=== PATIENT | male | born 1950 | race Caucasian/White ===

== ENCOUNTER 2020-07-05 11:32 | Inpatient (IN) | payer MEDICARE, OTHER ==
[2020-07-05] MEDS ORDERED: SODIUM CHLORIDE 0.9% 1,000 ML IV STA (12:20)
[2020-07-05] MEDS ORDERED: ONDANSETRON 4 MG/2 ML VIAL IVP STA (12:23)
[2020-07-05] MEDS ORDERED: ASPIRIN 81 MG PO STA (12:54)
--- NOTE | 2020-07-05 12:57 | ED ---
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 Patient history is significantly limited secondary to patient's developmental delays. Majority of history was obtained from patient's asp net programmer Nathaly who states that since July 03 patient has had complaints of dull pain and vomiting. They sent him to [facility] where the rule out obstruction Was negative and patient was kept overnight for monitoring. He was discharged 07/04 and nathaly states he was acting more like himself, until this morning patient was grabbing right upper abdomen stating it was hurting, no vomiting but just would not eat which is not like himself. Remaining ROS (-), they deny diarrhea, fever, bloody stools, blood in vomit. Denyes patient appearing short of breath or in distress. patient himself nods "no" to chest pain, shortness of breath, nods yest to abdominal pain, grabbing right side of abdomen Meds: amlodipine 2.5mg furosemide 40mg (Estefanía Hernandes) - Related Data Home Medications Medication Instructions Recorded Confirmed ARIPiprazole [Abilify] 20 mg PO DAILY 01/09/16 01/09/16 Benztropine Mesylate [Cogentin] 1 mg PO DAILY 01/09/16 01/09/16 Cholecalciferol [Vitamin D3] 2,000 unit PO DAILY 01/09/16 01/09/16 DULoxetine HCL [Cymbalta] 60 mg PO DAILY 01/09/16 01/09/16 Divalproex ER [Depakote ER] 250 mg PO BID 01/09/16 01/09/16 Divalproex [Depakote] 500 mg PO QID 01/09/16 01/09/16 Famotidine [Pepcid] 20 mg PO DAILY 01/09/16 01/09/16 Furosemide [Lasix] 40 mg PO BID 01/09/16 01/09/16 LORazepam [Ativan] 0.5 mg PO HS PRN 01/09/16 01/09/16 LORazepam [Ativan] 1 mg PO DIRECTED PRN 01/09/16 01/09/16 Levothyroxine Sodium [Synthroid] 75 mcg PO DAILY 01/09/16 01/09/16 Loperamide [Imodium] 2 mg PO BID 01/09/16 01/09/16 Magnesium Gluconate [Magonate] 500 mg PO TID 01/09/16 01/09/16 Potassium Chloride [Klor-Con 20] 20 meq PO DAILY 01/09/16 01/09/16 Psyllium Husk 100% [Metamucil] 12 gm PO TID 01/09/16 01/09/16 Simvastatin [Zocor] 20 mg PO HS 01/09/16 01/09/16 Spironolactone [Aldactone] 25 mg PO DAILY 01/09/16 01/09/16 Sucralfate [Carafate] 1 gm PO ACHS 01/09/16 01/09/16 allopurinoL [Zyloprim] 200 mg PO TID 01/09/16 01/09/16 calcitrioL [Rocaltrol] 0.25 mcg PO WEEKLY 01/09/16 01/09/16 Allergies Allergy/AdvReac Type Severity Reaction Status Date / Time lamotrigine Allergy Unknown Verified 01/09/16 08:10 Penicillins Allergy Rash/Hives Verified 01/09/16 08:10 Review of Systems ROS Other: All systems not noted in ROS Statement are negative. <Jan Rebolledo - Last Filed: 07/05/20 13:04> ROS Other: All systems not noted in ROS Statement are negative. <Estefanía Hernandes - Last Filed: 07/05/20 13:09> ROS Statement: Those systems with pertinent positive or pertinent negative responses have been documented in the HPI. Past Medical History Past Medical History: Coronary Artery Disease (CAD), Dementia, GERD/Reflux, Hypertension, Neurologic Disorder, Prostate Disorder, Renal Disease, Thyroid Disorder Additional Past Medical History / Comment(s): prostate cancer, epilepsy, chf, cerebral palsy History of Any Multi-Drug Resistant Organisms: None Reported Additional Past Surgical History / Comment(s): ileostomy Past Anesthesia/Blood Transfusion Reactions: No Reported Reaction Smoking Status: Never smoker Past Alcohol Use History: None Reported Past Drug Use History: None Reported <GretaEstefanía Parekh - Last Filed: 07/05/20 13:09> General Exam Limitations: no limitations <Estefanía Hernandes - Last Filed: 07/05/20 13:09> - General Exam Comments Initial Comments: General: The patient is awake and alert, in no distress Eye: Pupils are equal, round and reactive to light, extra-ocular movements are intact. No nystagmus. There is normal conjunctiva bilaterally. No signs of icterus. Ears, nose, mouth and throat: There are moist mucous membranes and no oral lesions. Neck: The neck is supple, there is no tenderness or JVD. Cardiovascular: There is a regular rate and rhythm. No murmur, rub or gallop is appreciated. Respiratory: Lungs are clear to auscultation, respirations are non-labored, breath sounds are equal. No wheezes, stridor, rales, or rhonchi. Gastrointestinal: Soft, non-distended, no obvious tenderness to palpation on abdominal exam, abdomen is without masses or organomegaly noted. There is no rebound or guarding present. Musculoskeletal: Normal ROM, no tenderness. Strength 5/5. Sensation intact. Radial and DP pulses equal bilaterally 2+. Neurological: A&O x 1. CN II-XII intact grossly, There are no obvious motor or sensory deficits. Coordination appears grossly intact. wont speak very much, occasional one words, nods Skin: Skin is warm and dry and no rashes or lesions are noted. Psychiatric: flat affect, obvious delays (Estefanía Hernandes) Course <Estefanía Hernandes - Last Filed: 07/05/20 13:09> Vital Signs 07/05/20 11:38 Temperature 97.6 F Pulse Rate 105 H Respiratory 18 Rate Blood Pressure 138/89 O2 Sat by Pulse 98 Oximetry - Reevaluation(s) Reevaluation #1: Nathaly supervisor [employer] and public guardian fernanda were updated on patient condition and fernanda gave permission for cardiac catheterization. 07/05/20 13:06 (Estefanía Hernandes) Medical Decision Making <Jan Rebolledo - Last Filed: 07/05/20 13:04> <Estefanía Hernandes - Last Filed: 07/05/20 13:09> - Medical Decision Making EKG shows a normal sinus rhythm at 99 bpm IN interval 142 QRS is 86 QT interval 342 QTC is [address] segment elevation in inferior leads II, III, and F aVF. Immediately I called a STEMI overhead Dr. Whitman she came down quickly to see the patient. Patient received a bolus of heparin and aspirin in the emergency department. Patient is unable to give any accurate history. I, Priyank Rebolledo, personally saw and examined the patient. I have reviewed and agree with the PA findings, including all diagnostic interpretations and huang atment plans as written unless otherwise stated. I was present for the kent portions of any procedures performed and the inclusive time noted for any critical care statement. (Jan Rebolledo) Given patient's lmited history and presentation and pointing to the right side abdomen it did not appear initially to be cardiac related, nodded no to chest pain and nathaly stated that he is usually good at telling them where he is hurting. patient EKG obtained later in visit, revealed a STEMI. I immediately showed attending provider, cardiology paged and patient given aspirin and initiated on heparin bolus. Cardiology evaluated patient in ER at 1PM. (Estefanía Hernandes) Disposition <Jan Rebolledo - Last Filed: 07/05/20 13:04> Is patient prescribed a controlled substance at d/c from ED?: No Time of Disposition: 13:08 Decision to Admit Reason: Admit from EC Decision Date: 07/05/20 Decision Time: 13:09 <Estefanía Hernandes - Last Filed: 07/05/20 13:09> Clinical Impression: STEMI (ST elevation myocardial infarction), Abdominal pain Disposition: ADMITTED IP TO THIS HOSP Condition: Serious Referrals: None,Stated [Primary Care Provider] - 1-2 days
[2020-07-05] MEDS ORDERED: HEPARIN SODIUM,PORCINE 5,000 UNIT/ML 1 ML VIAL IV STA (13:01)
[2020-07-05] MEDS ORDERED: ATORVASTATIN 80 MG TAB PO STA (13:06)
[2020-07-05] MEDS ORDERED: METOPROLOL TARTRATE 25 MG TAB PO STA ×2 (13:06→13:08)
[2020-07-05] MEDS ORDERED: NITROGLYCERIN SL TABS 0.4 MG TAB SUBLINGUAL PRN (13:09)
[2020-07-05] MEDS ORDERED: HEPARIN SODIUM 1,000 UN/ML (10ML VL) ONE ×2 (13:12→13:15)
[2020-07-05] MEDS ORDERED: fentaNYL (PF) 50 MCG/ML 2 ML AMP ONE (13:12)
[2020-07-05] MEDS ORDERED: LIDOCAINE 1% INJ 10MG/ML (20 ML MDV) ONE (13:12)
[2020-07-05] MEDS ORDERED: VERAPAMIL 2.5 MG/ML 2 ML AMP ONE (13:16)
--- NOTE | 2020-07-05 13:20 | XR ---
EXAMINATION TYPE: XR chest 1V portable DATE OF EXAM: 07/05/2020 COMPARISON: None INDICATION: Chest TECHNIQUE: Single frontal view of the chest is obtained. FINDINGS: The heart size is upper limits of normal. The pulmonary vasculature is normal. The lungs are clear. IMPRESSION: 1. No acute pulmonary process. 2. Heart size at the upper limits of normal.
[2020-07-05] MEDS ORDERED: fentaNYL (PF) 50 MCG/ML 2 ML AMP IVP ONE (13:24)
[2020-07-05 13:27] LABS: Albumin 4.5 g/dL (3.5-5.0); Calcium 10.2 mg/dL (8.4-10.2); Potassium 4.6 mmol/L (3.5-5.1)
[2020-07-05 13:28] LABS: Partial Thromboplastin Time 23.1 sec (22.0-30.0); Prothrombin Time 10.5 sec (9.0-12.0)
[2020-07-05] MEDS ORDERED: LIDOCAINE 1% INJ 10MG/ML (20 ML MDV) SQ ONE (13:30)
[2020-07-05] MEDS ORDERED: VERAPAMIL SYRINGE (5 MG/10 ML) INTRAARTER ONE (13:31)
[2020-07-05 13:33] LABS: Basophils % (A) 0 %; Eosinophils % (A) 0 %; HCT 46.9 % (39.0-53.0); HGB 15.7 gm/dL (13.0-17.5); Lymphocytes # (A) 1.6 k/uL (1.0-4.8); Lymphocytes % (A) 13 %; MCH 32.8 pg (25.0-35.0); MCHC 33.4 g/dL (31.0-37.0); MCV 98.3 fL (80.0-100.0); Macrocytosis Slight; Mean Platelet Volume 8.9; Monocytes # (A) 1.4 k/uL (0-1.0); Monocytes % (A) 11 %; Neutrophils # (A) 9.6 k/uL (1.3-7.7); Neutrophils % (A) 75 %; Platelet Count 245 k/uL (150-450); RBC 4.77 m/uL (4.30-5.90); RDW 15.3 % (11.5-15.5); WBC 12.8 k/uL (3.8-10.6)
[2020-07-05] MEDS ORDERED: IV FLUID CONTINUATION 1,000 ML IV ONE (13:36)
[2020-07-05] MEDS ORDERED: HEPARIN SODIUM 1,000 UN/ML (10ML VL) IV ONE (13:38)
[2020-07-05] MEDS ORDERED: IOPAMIDOL-370 125ML BTL INJ ONE (13:43)
[2020-07-05] MEDS ORDERED: RX INFO: IV CONTRAST WAS GIVEN 1 EACH MISC MISCELLANE PRN (13:51)
[2020-07-05] MEDS ORDERED: SODIUM CHLORIDE 0.9% 1,000 ML IV SCH (14:00)
--- NOTE | 2020-07-05 14:15 | P.CRDCN ---
History of Present Illness Consult date: 07/05/20 History of present illness: HISTORY OF PRESENT ILLNESS: This is a 69-year-old male with a past medical history significant for chronic kidney disease, seizure disorder, hypothyroidism, and cognitive delay. Patient is unable to give any history. Majority of history was obtained from the ER staff and EMR. Apparently the patient was having abdominal pain and vomiting. He was evaluated at [facility] and kept overnight for monitoring and discharged yesterday. Patient presented to [facility] today after his guardian noted the patient holding his abdomen and complaining of abdominal pain. EKG completed in the ER revealed ST elevation in the inferior leads. STEMI alert was called. EKG reveals ST elevation in inferior leads, minimal ST depression in precordial leads, and depressed TN interval in V4-V6. Chest xray no acute pulmonary process. Heart size at the upper limits of normal. Laboratory data: WBC 12.8. Hemoglobin 15.7. Platelet count 245. Sodium 138. Potassium 4.6. BUN 56. Creatinine 2.0. Lactic acid 2.1. Current home cardiac medications include Norvasc 2.5 mg daily, Zocor 20 mg daily, and Lasix 40 mg daily REVIEW OF SYSTEMS: Unable to obtain thorough review of systems secondary to cognitive impairment PHYSICAL EXAM: VITAL SIGNS: Reviewed. GENERAL: Well-developed in no acute distress. HEENT: Head is normocephalic. Pupils are equal, round. Sclerae anicteric. Mucous membranes of the mouth are moist. Neck supple. No JVD or thyromegaly LUNGS: Respirations even and unlabored. Lungs essentially clear to auscultation bilaterally. HEART: Regular rate and rhythm. S1 and S2 heard. ABDOMEN: Soft. Nondistended. Nontender. EXTREMITIES: Normal range of motion. No clubbing or cyanosis. Peripheral pulses intact. Trace bilateral lower extremity edema NEUROLOGIC: Awake and alert. ASSESSMENT: Acute inferior STEMI Abdominal pain Chronic kidney disease Elevated lactic acid with mild leukocytosis Hypertension Hyperlipidemia Hypothyroidism Cerebral palsy History of prostate cancer Cognitive impairment PLAN: Patient evaluated in the ER with Dr. Zamora. EKG reviewed revealing ST elevation in inferior leads. Patient received heparin bolus and aspirin in the emergency room. Patient also received metoprolol and Lipitor per Dr. Zamora. Nursing spoke with patients guardian and obtained verbal consent for cardiac catheterization. Patient was taken urgently to the cardiac cath lab radiological technologist in stable condition. Nurse practitioner note has been reviewed by physician. Signing provider agrees with the documented findings, assessment, and plan of care. Past Medical History Past Medical History: Coronary Artery Disease (CAD), Dementia, GERD/Reflux, Hypertension, Neurologic Disorder, Prostate Disorder, Renal Disease, Thyroid Disorder Additional Past Medical History / Comment(s): prostate cancer, epilepsy, chf, cerebral palsy History of Any Multi-Drug Resistant Organisms: None Reported Additional Past Surgical History / Comment(s): ileostomy Past Anesthesia/Blood Transfusion Reactions: No Reported Reaction Smoking Status: Never smoker Past Alcohol Use History: None Reported Past Drug Use History: None Reported Medications and Allergies Home Medications Medication Instructions Recorded Confirmed Type Cholecalciferol [Vitamin D3] 2,000 unit PO DAILY 01/09/16 01/09/16 History DULoxetine HCL [Cymbalta] 60 mg PO DAILY 01/09/16 01/09/16 History Divalproex [Depakote] 500 mg PO QID 01/09/16 01/09/16 History Furosemide [Lasix] 40 mg PO BID 01/09/16 01/09/16 History LORazepam [Ativan] 0.5 mg PO HS PRN 01/09/16 01/09/16 History LORazepam [Ativan] 1 mg PO DIRECTED PRN 01/09/16 01/09/16 History Levothyroxine Sodium [Synthroid] 75 mcg PO DAILY 01/09/16 01/09/16 History Loperamide [Imodium] 2 mg PO BID 01/09/16 01/09/16 History Psyllium Husk 100% [Metamucil] 12 gm PO TID 01/09/16 01/09/16 History Simvastatin [Zocor] 20 mg PO HS 01/09/16 01/09/16 History allopurinoL [Zyloprim] 200 mg PO TID 01/09/16 01/09/16 History calcitrioL [Rocaltrol] 0.25 mcg PO WEEKLY 01/09/16 01/09/16 History ARIPiprazole [Abilify] 30 mg PO HS 07/05/20 07/05/20 History Acetaminophen Tab [Tylenol Tab] 500 - 1,000 mg PO Q6HR PRN 07/05/20 07/05/20 History Carbidopa-Levodopa 25-100 mg 1 tab PO BID 07/05/20 07/05/20 History [Sinemet 25-100] DULoxetine HCL [Cymbalta] 30 mg PO DAILY 07/05/20 07/05/20 History Denta Paste 1 applic PO BID 07/05/20 07/05/20 History Magnesium Oxide 800 mg PO TID 07/05/20 07/05/20 History Mupirocin 2% Oint [Bactroban 2% 1 applic TOPICAL BID PRN 07/05/20 07/05/20 History Oint] Nystatin 100,000 Unit/gm Oint 1 applic TOPICAL BID PRN 07/05/20 07/05/20 History [Mycostatin Oint] Omeprazole 40 mg PO DAILY 07/05/20 07/05/20 History Simethicone 180mg 180 mg PO BID 07/05/20 07/05/20 History Sodium Bicarbonate Tab 650 mg PO DAILY 07/05/20 07/05/20 History amLODIPine [Norvasc] 2.5 mg PO HS 07/05/20 07/05/20 History guaiFENesin SYRUP 100MG/5ML 1 dose PO Q4H PRN 07/05/20 07/05/20 History [Robitussin] Allergies Allergy/AdvReac Type Severity Reaction Status Date / Time lamotrigine Allergy Unknown Verified 07/05/20 13:42 NSAIDS (Non-Steroidal Allergy Unknown Verified 07/05/20 13:42 Anti-Inflamma Penicillins Allergy Rash/Hives Verified 07/05/20 13:42 Physical Exam Vitals: Vital Signs Temp Pulse Resp BP Pulse Ox 07/05/20 11:38 97.6 F 105 H 18 138/89 98 Intake and Output 07/04/20 07/05/20 07/05/20 22:59 06:59 14:59 Intake Total 25 Balance 25 Intake: IV 25 Other: Weight 113.398 kg Results 07/05/20 12:38 07/05/20 12:38 Cardiac Enzymes 07/05/20 Range/Units 12:38 AST 52 (17-59) U/L Coagulation 07/05/20 Range/Units 12:38 PT 10.5 (9.0-12.0) sec APTT 23.1 (22.0-30.0) sec CBC 07/05/20 Range/Units 12:38 WBC 12.8 H (3.8-10.6) k/uL RBC 4.77 (4.30-5.90) m/uL Hgb 15.7 (13.0-17.5) gm/dL Hct 46.9 (39.0-53.0) % Plt Count 245 (150-450) k/uL Comprehensive Metabolic Panel 07/05/20 Range/Units 12:38 Sodium 138 (137-145) mmol/L Potassium 4.6 (3.5-5.1) mmol/L Chloride 101 (98-107) mmol/L Carbon Dioxide 24 (22-30) mmol/L BUN 56 H (9-20) mg/dL Creatinine 2.00 H (0.66-1.25) mg/dL Glucose 141 H (74-99) mg/dL Calcium 10.2 (8.4-10.2) mg/dL AST 52 (17-59) U/L ALT 21 (4-49) U/L Alkaline Phosphatase 99 (38-126) U/L Total Protein 8.0 (6.3-8.2) g/dL Albumin 4.5 (3.5-5.0) g/dL Current Medications Generic Name Dose Route Start Last Admin Trade Name Freq PRN Reason Stop Dose Admin Aspirin 325 mg 07/06/20 09:00 Aspirin 325 Mg Tab PO DAILY [facility] Aspirin 81 mg 07/06/20 09:00 Aspirin 81 Mg PO DAILY [facility] Atorvastatin Calcium 40 mg 07/06/20 09:00 Atorvastatin 40 Mg Tab PO DAILY [facility] Diltiazem HCl 30 mg 07/05/20 16:00 Diltiazem Oral 30 Mg Tab PO TID [facility] Sodium Chloride 1,000 mls @ 75 mls/hr 07/05/20 14:00 Saline 0.9% IV 07/05/20 20:39 .[id number] [facility] Miscellaneous Information 1 each 07/05/20 13:51 Rx Info: Iv Contrast Was Given 1 Each Misc MISCELLANE 07/07/20 13:51 DAILY PRN Per Protocol Nitroglycerin 0.4 mg 07/05/20 13:09 Nitroglycerin Sl Tabs 0.4 Mg Tab SUBLINGUAL Q5M PRN Chest Pain Intake and Output 07/04/20 07/05/20 07/05/20 22:59 06:59 14:59 Intake Total 25 Balance 25 Intake: IV 25 Other: Weight 113.398 kg Patient Weight 03/26/21 06:59 Weight 113.398 kg 07/05/20 12:38 07/05/20 12:38
--- NOTE | 2020-07-05 14:15 | CC ---
CARDIAC CATHETERIZATION REPORT Mr. Harden is a 69-year-old male who is mentally challenged, has a history of hypertension, hyperlipidemia, prior history of colostomy, history of chronic kidney disease, who presented to the emergency room with discomfort. Because of his mental status, the clarification of his chest discomfort is not very clear, but on his EKG he had evidence of ST-segment elevation inferiorly. He was evaluated by Dr. Zamora who recommended to proceed with cardiac catheterization. He discussed his case with his caregiver. The patient was brought to the [facility] for the procedure. PROCEDURE: Patient was brought to the [facility]. He was prepped and draped in conventional fashion. Using Xylocaine anesthesia and Seldinger technique, a [place] sheath was introduced in the right femoral artery. He received sedation in form of fentanyl and Benadryl and achieving moderate conscious sedated state. Selective right and left coronary angiography performed using 6[place] 4 bend right Wayne catheter and 6- [place] 3.5 bend left guiding catheter. Multiple views of the coronary artery including hemiaxial views were obtained. Following that, [place] tight pigtail catheter was introduced in the left ventricle and pressures were calculated. Following that, catheter and sheath were removed. Hemostasis was obtained with deployment of an TR band. There was no immediate complication. Patient is returned to his room in stable condition. Of note, the patient received an additional 2000 units of heparin in addition to what he received in the emergency room. FINDINGS: LEFT MAIN: This is a short size vessel, bifurcating into left circumflex artery and left anterior descending artery. Left main coronary artery has no evidence of high- grade stenosis. LEFT ANTERIOR DESCENDING ARTERY: This is a large-size vessel reaching to the apex, tapers down distal third, gives rise to a small diagonal branch. Left anterior descending artery as well as branches have no evidence of obstructive coronary artery disease. LEFT CIRCUMFLEX: This is a dominant vessel, large in caliber, giving rise to a large obtuse marginal branch. The left circumflex as well as branches have no evidence of obstructive coronary artery disease. RIGHT CORONARY ARTERY: This is a large dominant vessel bifurcating distally PDA and posterolateral segment and branches. The right coronary artery as well as branches have no evidence of obstructive coronary artery disease. LEFT VENTRICULOGRAM: Left ventriculogram was not performed. HEMODYNAMICS: There was no gradient across the aortic valve. The left ventricular end- diastolic pressure was 16-20 mmHg. CONCLUSION: 1. Normal coronary arteries. 2. Normal left ventricular end-diastolic pressure. RECOMMENDATION: His presentation could represent a vasospastic disease. There is no evidence of obstructive coronary artery disease. In view of that, I recommend continue medical therapy. The findings were discussed with Dr. Zamora. MMWILLIAN / REGGIEN: [id number] / [id number]
[2020-07-05] MEDS ORDERED: MORPHINE SULFATE 2 MG/ML SYRINGE IV PRN (17:11)
[2020-07-05] MEDS ORDERED: CALCIUM CARBONATE 500 MG CHEWABLE PO PRN (17:11)
[2020-07-05] MEDS ORDERED: NALOXONE 0.4 MG/ML 1 ML VIAL IV PRN (17:11)
[2020-07-05] MEDS ORDERED: LORazepam 1 MG TAB PO PRN (17:16)
[2020-07-05] MEDS ORDERED: guaiFENesin SYRUP 100MG/5ML 200 MG/10 ML CUP PO PRN (17:16)
[2020-07-05] MEDS: ONDANSETRON 4 MG/2 ML VIAL IVP PRN ×2 (17:28→22:30)
[2020-07-05] MEDS: PANTOPRAZOLE 40 MG/10 ML VIAL IVP SCH (17:47)
--- NOTE | 2020-07-05 17:53 | P.HPIM ---
History of Present Illness H&P Date: 07/05/20 Chief Complaint: Abdominal pain, nausea, vomiting 69-year-old man with cognitive disability who resides in a [place] [facility], and bipolar disorder, CK D, seizure disorder, hypothyroidism presented with abdominal pain, nausea, vomiting. Patient is a very poor historian, minimally participates with review of systems, does not participate in interview. Majority of history is obtained from existing documentation as well as from nursing signout. The ER provider was not able to touch base with us prior to his left heart cath procedure. From my understanding, patient presented with mentioned symptoms, and during his workup, EKG demonstrated ST elevations in the inferior leads with reciprocal depressions in the lateral leads, prompting STEMI call. Patient was taken to the [facility] and had left radial access, however, his coronary arteries were clean. Following the procedure, patient had coffee- ground emesis and epistaxis in the recovery unit. I saw the patient during his emesis episodes, which didn't appear to be coffee-ground/bloody. However, notably patient had had a nosebleed prior to this for approximately 15 minutes, while leaning back in the bed, so it's unclear how much of this he swallowed. Review of systems is positive for abdominal pain, however, patient denied nausea, vomiting despite having vomited immediately after denying any symptoms; therefore, I do not necessarily trust the remainder my review of systems in this patient. Patient is afebrile, 87% on room air, blood pressure is 113/85, heart rate is 110 upon my evaluation. Labs reviewed and pertinent positives included white blood cell count 12.8, creatinine of 2.0, BUN of 56, lactic acid of 2.1. Chest x-ray did not demonstrate acute cardiopulmonary process. Review of Systems See HPI Past Medical History Past Medical History: Coronary Artery Disease (CAD), Dementia, GERD/Reflux, Hypertension, Neurologic Disorder, Prostate Disorder, Renal Disease, Thyroid Disorder Additional Past Medical History / Comment(s): prostate cancer, epilepsy, chf, cerebral palsy History of Any Multi-Drug Resistant Organisms: None Reported Additional Past Surgical History / Comment(s): ileostomy Past Anesthesia/Blood Transfusion Reactions: No Reported Reaction Smoking Status: Never smoker Past Alcohol Use History: None Reported Past Drug Use History: None Reported Medications and Allergies Home Medications Medication Instructions Recorded Confirmed Type Cholecalciferol [Vitamin D3] 2,000 unit PO Q48H 01/09/16 07/05/20 History DULoxetine HCL [Cymbalta] 60 mg PO HS 01/09/16 07/05/20 History Divalproex [Depakote] 500 mg PO QID 01/09/16 07/05/20 History Furosemide [Lasix] 40 mg PO DAILY 01/09/16 07/05/20 History LORazepam [Ativan] 0.5 mg PO TID 01/09/16 07/05/20 History LORazepam [Ativan] 1 mg PO DIRECTED PRN 01/09/16 07/05/20 History Levothyroxine Sodium [Synthroid] 75 mcg PO DAILY 01/09/16 07/05/20 History Loperamide [Imodium] 2 mg PO BID 01/09/16 07/05/20 History Psyllium Husk 100% [Metamucil] 12 gm PO TID 01/09/16 07/05/20 History Simvastatin [Zocor] 20 mg PO HS 01/09/16 07/05/20 History allopurinoL [Zyloprim] 100 mg PO TID 01/09/16 07/05/20 History calcitrioL [Rocaltrol] 0.25 mcg PO TU 01/09/16 07/05/20 History ARIPiprazole [Abilify] 30 mg PO HS 07/05/20 07/05/20 History Acetaminophen Tab [Tylenol Tab] 500 - 1,000 mg PO Q6HR PRN 07/05/20 07/05/20 History Carbidopa-Levodopa 25-100 mg 1 tab PO BID 07/05/20 07/05/20 History [Sinemet 25-100] DULoxetine HCL [Cymbalta] 30 mg PO DAILY 07/05/20 07/05/20 History Denta Paste 1 applic PO BID 07/05/20 07/05/20 History Magnesium Oxide 800 mg PO TID 07/05/20 07/05/20 History Mupirocin 2% Oint [Bactroban 2% 1 applic TOPICAL BID PRN 07/05/20 07/05/20 History Oint] Nystatin 100,000 Unit/gm Oint 1 applic TOPICAL BID PRN 07/05/20 07/05/20 History [Mycostatin Oint] Omeprazole 40 mg PO DAILY 07/05/20 07/05/20 History Simethicone 180mg 180 mg PO BID 07/05/20 07/05/20 History Sodium Bicarbonate Tab 650 mg PO DAILY 07/05/20 07/05/20 History amLODIPine [Norvasc] 2.5 mg PO HS 07/05/20 07/05/20 History guaiFENesin SYRUP 100MG/5ML 1 dose PO Q4H PRN 07/05/20 07/05/20 History [Robitussin] Allergies Allergy/AdvReac Type Severity Reaction Status Date / Time lamotrigine Allergy Unknown Verified 07/05/20 13:42 NSAIDS (Non-Steroidal Allergy Unknown Verified 07/05/20 13:42 Anti-Inflamma Penicillins Allergy Rash/Hives Verified 07/05/20 13:42 Physical Exam Osteopathic Statement: *. No significant issues noted on an osteopathic structural exam other than those noted in the History and Physical/Consult. Vitals: Vital Signs Temp Pulse Pulse Pulse Resp BP BP 07/05/20 17:30 101 H 16 07/05/20 17:24 97 16 07/05/20 17:21 07/05/20 17:00 98 16 07/05/20 16:35 82 16 07/05/20 16:22 94 16 07/05/20 15:30 84 18 148/88 07/05/20 15:00 98 18 148/87 07/05/20 14:45 92 18 145/83 07/05/20 14:30 90 18 155/86 07/05/20 14:15 90 18 160/85 07/05/20 14:00 90 18 142/94 07/05/20 12:46 109 H 18 110/69 07/05/20 11:38 97.6 F 105 H 18 138/89 BP Pulse Ox 07/05/20 17:30 151/91 89 L 07/05/20 17:24 124/99 88 L 07/05/20 17:21 90 L 07/05/20 17:00 113/85 87 L 07/05/20 16:35 161/96 07/05/20 16:22 134/91 92 L 07/05/20 15:30 95 07/05/20 15:00 94 L 07/05/20 14:45 93 L 07/05/20 14:30 94 L 07/05/20 14:15 94 L 07/05/20 14:00 93 L 07/05/20 12:46 98 07/05/20 11:38 98 Intake and Output 07/05/20 07/05/20 07/05/20 06:59 14:59 22:59 Intake Total 25 Balance 25 Intake: IV 25 Other: Weight 113.398 kg Gen: awake, alert HEENT: normocephalic, atraumatic, good hearing acuity, moist mucous membranes Resp: good air exchange, breathing comfortably with no accessory muscle use, clear to auscultation bilaterally without wheezes or crackles CVS: good distal perfusion x 4, tachycardic, no murmurs, regular rhythm GI: soft, NTTP, ND, appropriate bowel sounds : no SPT, no CVAT, redd catheter is present MSK: Trace to 1+ bilateral pitting edema, no clubbing Neuro: non-focal, moving all extremities Psych: cooperative, euthymic mood Results CBC & Chem 7: 07/05/20 12:38 07/05/20 12:38 Labs: Abnormal Lab Results - Last 24 Hours (Table) 07/05/20 07/05/20 07/05/20 Range/Units 12:38 12:38 12:38 WBC 12.8 H (3.8-10.6) k/uL Neutrophils # 9.6 H (1.3-7.7) k/uL Monocytes # 1.4 H (0-1.0) k/uL BUN 56 H (9-20) mg/dL Creatinine 2.00 H (0.66-1.25) mg/dL Glucose 141 H (74-99) mg/dL Plasma Lactic Acid Papa 2.1 H* (0.7-2.0) mmol/L Assessment and Plan Assessment: Abdominal pain Coffee-ground emesis -Maintain active type and screen, large-bore IV access -CBC every 6 hours -Clear liquid diet -PPI twice a day -GI consult -Tums when necessary -Zofran when necessary -Tylenol when necessary Epistaxis -Controlled after pressure for more than 10 minutes -Okay to use Rhino Rocket if necessary -If still uncontrolled, can try Afrin spray Chronic kidney disease, unclear stage -Continue sodium bicarbonate daily -Avoid nephrotoxins -Renally dose medications -Continue calcium carbonate -Continue calcitriol -Consider nephrology consult Bipolar disorder Seizure disorder Cognitive impairment -Continue Depakote -Ativan when necessary -Continue duloxetine -Continue Sinemet Gout -Continue allopurinol Hypertension -Continue amlodipine -Continue Diltiazem Hypothyroidism -Continue levothyroxine DVT prophylaxis is on hold due to suspected bleed Patient is a full code
[2020-07-05 19:23] LABS: Basophils % (A) 0 %; Eosinophils % (A) 0 %; HCT 47.6 % (39.0-53.0); HGB 15.4 gm/dL (13.0-17.5); Lymphocytes # (A) 1.5 k/uL (1.0-4.8); Lymphocytes % (A) 12 %; MCH 31.8 pg (25.0-35.0); MCHC 32.3 g/dL (31.0-37.0); MCV 98.4 fL (80.0-100.0); Macrocytosis Slight; Mean Platelet Volume 8.4; Monocytes # (A) 1.1 k/uL (0-1.0); Monocytes % (A) 8 %; Neutrophils # (A) 9.7 k/uL (1.3-7.7); Neutrophils % (A) 78 %; Platelet Count 228 k/uL (150-450); RBC 4.83 m/uL (4.30-5.90); RDW 15.1 % (11.5-15.5); WBC 12.4 k/uL (3.8-10.6)
[2020-07-05 19:37] LABS: Prothrombin Time 10.8 sec (9.0-12.0)
[2020-07-05] MEDS: DILTIAZEM ORAL 30 MG TAB PO SCH ×2 (20:38→21:59)
[2020-07-05] MEDS: DIVALPROEX 500 MG TABLET.DR PO SCH ×2 (20:38→21:59)
[2020-07-05] MEDS: DULoxetine HCL 60 MG CAPSULE.DR PO SCH (20:38)
[2020-07-05] MEDS: CARBIDOPA-LEVODOPA 25-100 MG 1 EACH TAB PO SCH (20:38)
[2020-07-05] MEDS: [UNRECOGNIZED DRUG - OTHER] PO SCH (20:39)
[2020-07-05] MEDS: allopurinoL 100 MG TAB PO SCH (20:39)
[2020-07-05] MEDS: ARIPiprazole 15 MG TAB PO SCH (20:39)
[2020-07-05] MEDS ORDERED: amLODIPine 2.5 MG TAB PO SCH (21:00)
[2020-07-05] MEDS ORDERED: NON FORMULARY DRUG (Simvastatin 20 MG Tab) PO SCH (21:00)
[2020-07-05 22:41] LABS: HCT 46.5 % (39.0-53.0); HGB 15.2 gm/dL (13.0-17.5); MCH 32.4 pg (25.0-35.0); MCHC 32.7 g/dL (31.0-37.0); MCV 98.9 fL (80.0-100.0); Macrocytosis Slight; Mean Platelet Volume 8.6; Platelet Count 251 k/uL (150-450); RDW 15.2 % (11.5-15.5); WBC 16.2 k/uL (3.8-10.6)
[2020-07-06] MEDS ORDERED: METOCLOPRAMIDE 5 MG/ML 2 ML VIAL ONE ×2 (03:53→03:54)
[2020-07-06] MEDS ORDERED: PANTOPRAZOLE 40 MG/10 ML VIAL ONE (03:53)
[2020-07-06 05:54] LABS: Basophils % (A) 0 %; Eosinophils % (A) 0 %; HCT 45.9 % (39.0-53.0); HGB 14.9 gm/dL (13.0-17.5); Lymphocytes # (A) 1.6 k/uL (1.0-4.8); Lymphocytes % (A) 10 %; MCH 31.8 pg (25.0-35.0); MCHC 32.6 g/dL (31.0-37.0); MCV 97.7 fL (80.0-100.0); Mean Platelet Volume 9.2; Monocytes # (A) 1.8 k/uL (0-1.0); Monocytes % (A) 11 %; Neutrophils # (A) 12.4 k/uL (1.3-7.7); Neutrophils % (A) 77 %; Platelet Count 280 k/uL (150-450); RDW 15.3 % (11.5-15.5); WBC 16.1 k/uL (3.8-10.6)
[2020-07-06 06:13] LABS: Glucose,Whole Blood 132 mg/dL (75-99)
[2020-07-06] MEDS: LEVOTHYROXINE 75 MCG TAB PO SCH (06:33)
[2020-07-06 08:29] LABS: Basophils % (A) 0 %; Eosinophils % (A) 0 %; HCT 44.8 % (39.0-53.0); HGB 14.5 gm/dL (13.0-17.5); Lymphocytes # (A) 1.6 k/uL (1.0-4.8); Lymphocytes % (A) 15 %; MCH 31.7 pg (25.0-35.0); MCHC 32.3 g/dL (31.0-37.0); MCV 98.2 fL (80.0-100.0); Macrocytosis Slight; Mean Platelet Volume 8.4; Monocytes # (A) 1.4 k/uL (0-1.0); Monocytes % (A) 13 %; Neutrophils # (A) 7.5 k/uL (1.3-7.7); Neutrophils % (A) 70 %; Platelet Count 256 k/uL (150-450); RBC 4.56 m/uL (4.30-5.90); RDW 15.4 % (11.5-15.5); WBC 10.7 k/uL (3.8-10.6)
[2020-07-06 08:46] LABS: Triglycerides 149 mg/dL (<150)
[2020-07-06] MEDS: PANTOPRAZOLE 40 MG/10 ML VIAL IVP SCH ×2 (08:46→20:18)
[2020-07-06 08:47] LABS: Prothrombin Time 10.8 sec (9.0-12.0)
[2020-07-06] MEDS: DIVALPROEX 500 MG TABLET.DR PO SCH ×4 (08:48→20:18)
[2020-07-06] MEDS: SODIUM BICARBONATE TAB 650 MG TAB PO SCH (08:48)
[2020-07-06] MEDS: DILTIAZEM ORAL 30 MG TAB PO SCH ×4 (08:48→20:18)
[2020-07-06] MEDS: CHOLECALCIFEROL 25 MCG (1000 IU) TABLET PO SCH (08:48)
[2020-07-06] MEDS: DULoxetine HCL 30 MG CAPSULE.DR PO SCH (08:48)
[2020-07-06] MEDS: allopurinoL 100 MG TAB PO SCH ×3 (08:48→20:21)
[2020-07-06] MEDS: CARBIDOPA-LEVODOPA 25-100 MG 1 EACH TAB PO SCH ×2 (08:48→20:21)
[2020-07-06] MEDS: FUROSEMIDE 40 MG TAB PO SCH (08:48)
[2020-07-06] MEDS ORDERED: ASPIRIN 81 MG PO SCH (09:00)
[2020-07-06] MEDS ORDERED: ATORVASTATIN 40 MG TAB PO SCH (09:00)
[2020-07-06] MEDS ORDERED: ASPIRIN 325 MG TAB PO SCH (09:00)
[2020-07-06 09:02] LABS: Cholesterol 164 mg/dL (<200); HDL Cholesterol 61 mg/dL (40-60); LDL Cholesterol,Calculated 73 mg/dL (0-99)
[2020-07-06 09:04] LABS: Calcium 9.1 mg/dL (8.4-10.2); Magnesium 1.8 mg/dL (1.6-2.3); Potassium 4.4 mmol/L (3.5-5.1)
[2020-07-06] MEDS: [UNRECOGNIZED DRUG - OTHER] PO SCH (10:44)
[2020-07-06 11:07] LABS: Basophils % (A) 0 %; Eosinophils % (A) 0 %; HCT 44.5 % (39.0-53.0); HGB 14.5 gm/dL (13.0-17.5); Lymphocytes # (A) 1.3 k/uL (1.0-4.8); Lymphocytes % (A) 15 %; MCH 32.4 pg (25.0-35.0); MCHC 32.7 g/dL (31.0-37.0); MCV 98.9 fL (80.0-100.0); Macrocytosis Slight; Mean Platelet Volume 8.6; Monocytes # (A) 1.3 k/uL (0-1.0); Monocytes % (A) 15 %; Neutrophils # (A) 5.8 k/uL (1.3-7.7); Neutrophils % (A) 67 %; Platelet Count 223 k/uL (150-450); RDW 15.2 % (11.5-15.5); WBC 8.5 k/uL (3.8-10.6)
--- NOTE | 2020-07-06 12:31 | ECHOF ---
Referral Reason:STEMI, LV function MEASUREMENTS -------- HEIGHT: 180.3 cm WEIGHT: 113.4 kg BP: IVSd: 1.4 cm (0.6 - 1.1) LVIDd: 2.8 cm (3.9 - 5.3) LVPWd: 1.6 cm (0.6 - 1.1) IVSs: 1.6 cm LVIDs: 1.3 cm LVPWs: 1.8 cm Ao Diam: 3.2 cm (2.0 - 3.7) AV Cusp: 2.2 cm (1.5 - 2.6) LA Diam: 2.3 cm (2.7 - 3.8) MV EXCURSION: 12.148 mm (> 18.000) MV EF SLOPE: 53 mm/s (70 - 150) EPSS: 0.6 cm MV E Wyatt: 0.40 m/s MV DecT: 223 ms MV A Wyatt: 0.66 m/s MV E/A Ratio: 0.61 RAP: 5.00 mmHg RVSP: 17.61 mmHg FINDINGS -------- This was a technically difficult study with suboptimal views. The left ventricular size is normal. There is moderate concentric left ventricular hypertrophy. O verall left ventricular systolic function is normal with, an EF between 60 - 65 %. The right ventricle is normal in size. The left atrial size is normal. The right atrial size is normal. xx ml of Lumason was utilized for enhancement of images. The aortic valve is trileaflet and appears structurally normal. The mitral valve is normal. There is trace mitral regurgitation. The tricuspid valve appears structurally normal. Mild tricuspid regurgitation present. Right vent ricular systolic pressure is normal at < 35 mmHg. There is no pulmonic regurgitation present. The aortic root size is normal. IVC Not well visulized. There is no pericardial effusion. CONCLUSIONS -------- 1. The left ventricular size is normal. 2. There is moderate concentric left ventricular hypertrophy. 3. Overall left ventricular systolic function is normal with, an EF between 60 - 65 %. 4. There is trace mitral regurgitation. 5. Mild tricuspid regurgitation present. 6. There is no pericardial effusion. POWDER WORKER TNT: Diana Del Rio RDCS
--- NOTE | 2020-07-06 12:44 | P.PN ---
Subjective This is a pleasant 69-year-old male past medical history significant for chronic kidney disease, seizure disorder, hypothyroidism and cognitive delay. He underwent cardiac catheterization yesterday revealing normal coronary arteries. Repeat EKG this morning reveals sinus mechanism with resolution of ST changes inferiorly with no evidence of OR depression. Blood pressure 124/82 heart rate 118 afebrile maintaining oxygen saturation on nasal cannula. Telemetry tracings reveals sinus tachycardia. Laboratory data reviewed, CBC unremarkable, sodium 137, potassium 4.4, creatinine 2.35, LDL 73, HDL 61 and lactic acid 2.8. He is seen and examined sitting up in the recliner in no acute distress. He has no complaints of chest pain or shortness of breath. GENERAL: Well-appearing, well-nourished and in no acute distress. NECK: Supple without JVD or thyromegaly. LUNGS: Breath sounds clear to auscultation bilaterally. Respiration equal and u nlabored. No wheezes, rales or rhonchi. HEART: Regular rate and rhythm without murmurs, rubs or gallops. S1 and S2 heard. EXTREMITIES: Normal range of motion, trace bilateral lower extremity nonpitting edema. No clubbing or cyanosis. Peripheral pulses intact. Right radial access site clean, dry and intact with no evidence of hematoma or ecchymosis. ASSESSMENT Inferior wall ST elevated myocardial infarction, normal coronary arteries, likely related to coronary spasm Chronic kidney disease Lactic acidosis Hypertension Dyslipidemia Cerebral palsy Cognitive impairment PLAN Increase cardizem to QID, likely can transition to long acting in the future if he tolerates this dose. Decrease atorvastatin to 20 mg daily. No need for aspirin. GI is currently evaluating him for abdominal pain and coffee ground emesis. Nurse Practitioner note has been reviewed, I agree with a documented findings and plan of care. Patient was seen and examined. Objective - Vital Signs Vital signs: Vital Signs Temp 98 F 07/06/20 08:00 Pulse 118 H 07/06/20 08:00 Resp 18 07/06/20 08:00 BP 124/82 07/06/20 08:00 Pulse Ox 92 L 07/06/20 08:00 Intake & Output 07/05/20 07/06/20 07/06/20 18:59 06:59 18:59 Intake Total 325 0 Balance 325 0 Weight 113.398 kg 108.3 kg Intake: IV 325 Sodium Chloride 0.9% 1, 300 000 ml @ 75 mls/hr IV . [id number] [facility] Rx#:[id number] Oral 0 Other: # Voids 1 # Bowel Movements 0 - Labs CBC & Chem 7: 07/06/20 10:40 07/06/20 07:55 Labs: Abnormal Lab Results - Last 24 Hours (Table) 07/05/20 07/05/20 07/05/20 Range/Units 12:38 12:38 12:38 WBC 12.8 H (3.8-10.6) k/uL Neutrophils # 9.6 H (1.3-7.7) k/uL Monocytes # 1.4 H (0-1.0) k/uL Carbon Dioxide (22-30) mmol/L BUN 56 H (9-20) mg/dL Creatinine 2.00 H (0.66-1.25) mg/dL Glucose 141 H (74-99) mg/dL POC Glucose (mg/dL) (75-99) mg/dL Plasma Lactic Acid Papa 2.1 H* (0.7-2.0) mmol/L HDL Cholesterol (40-60) mg/dL 07/05/20 07/05/20 07/05/20 Range/Units 19:10 19:10 22:37 WBC 12.4 H 16.2 H (3.8-10.6) k/uL Neutrophils # 9.7 H (1.3-7.7) k/uL Monocytes # 1.1 H (0-1.0) k/uL Carbon Dioxide (22-30) mmol/L BUN (9-20) mg/dL Creatinine (0.66-1.25) mg/dL Glucose (74-99) mg/dL POC Glucose (mg/dL) (75-99) mg/dL Plasma Lactic Acid Papa 3.9 H* (0.7-2.0) mmol/L HDL Cholesterol (40-60) mg/dL 07/05/20 07/06/20 07/06/20 Range/Units 22:37 01:45 06:12 WBC 16.1 H (3.8-10.6) k/uL Neutrophils # 12.4 H (1.3-7.7) k/uL Monocytes # 1.8 H (0-1.0) k/uL Carbon Dioxide (22-30) mmol/L BUN (9-20) mg/dL Creatinine (0.66-1.25) mg/dL Glucose (74-99) mg/dL POC Glucose (mg/dL) 132 H (75-99) mg/dL Plasma Lactic Acid Papa 2.6 H* (0.7-2.0) mmol/L HDL Cholesterol (40-60) mg/dL 07/06/20 07/06/20 07/06/20 Range/Units 07:55 07:55 07:55 WBC 10.7 H (3.8-10.6) k/uL Neutrophils # (1.3-7.7) k/uL Monocytes # 1.4 H (0-1.0) k/uL Carbon Dioxide 17 L (22-30) mmol/L BUN 69 H (9-20) mg/dL Creatinine 2.35 H (0.66-1.25) mg/dL Glucose 138 H (74-99) mg/dL POC Glucose (mg/dL) (75-99) mg/dL Plasma Lactic Acid Papa (0.7-2.0) mmol/L HDL Cholesterol 61 H (40-60) mg/dL 07/06/20 Range/Units 10:40 WBC (3.8-10.6) k/uL Neutrophils # (1.3-7.7) k/uL Monocytes # 1.3 H (0-1.0) k/uL Carbon Dioxide (22-30) mmol/L BUN (9-20) mg/dL Creatinine (0.66-1.25) mg/dL Glucose (74-99) mg/dL POC Glucose (mg/dL) (75-99) mg/dL Plasma Lactic Acid Papa (0.7-2.0) mmol/L HDL Cholesterol (40-60) mg/dL
--- NOTE | 2020-07-06 14:07 | P.PN ---
Subjective Progress Note Date: 07/06/20 Pt reports improvement in abdominal pain, but still flinches to palpation of epigastrum Objective - Vital Signs Vital signs: Vital Signs Temp 98 F 07/06/20 08:00 Pulse 118 H 07/06/20 08:00 Resp 18 07/06/20 08:00 BP 124/82 07/06/20 08:00 Pulse Ox 92 L 07/06/20 08:00 Intake & Output 07/05/20 07/06/20 07/06/20 18:59 06:59 18:59 Intake Total 325 0 Balance 325 0 Weight 113.398 kg 108.3 kg Intake: IV 325 Sodium Chloride 0.9% 1, 300 000 ml @ 75 mls/hr IV . [id number] [facility] Rx#:[id number] Oral 0 Other: # Voids 1 # Bowel Movements 0 - Exam Gen: awake, alert HEENT: normocephalic, atraumatic, good hearing acuity, moist mucous membranes Resp: good air exchange, breathing comfortably with no accessory muscle use, clear to auscultation bilaterally without wheezes or crackles CVS: good distal perfusion x 4, tachycardic, no murmurs, regular rhythm GI: soft,TTP in epigastrum, LUQ/RUQ, ND, appropriate bowel sounds, +ileostomy : no SPT, no CVAT, redd catheter is present MSK: Trace to 1+ bilateral pitting edema, no clubbing Neuro: non-focal, moving all extremities Psych: cooperative, euthymic mood - Labs CBC & Chem 7: 07/06/20 10:40 07/06/20 07:55 Labs: Abnormal Lab Results - Last 24 Hours (Table) 07/05/20 07/05/20 07/05/20 Range/Units 19:10 19:10 22:37 WBC 12.4 H 16.2 H (3.8-10.6) k/uL Neutrophils # 9.7 H (1.3-7.7) k/uL Monocytes # 1.1 H (0-1.0) k/uL Carbon Dioxide (22-30) mmol/L BUN (9-20) mg/dL Creatinine (0.66-1.25) mg/dL Glucose (74-99) mg/dL POC Glucose (mg/dL) (75-99) mg/dL Plasma Lactic Acid Papa 3.9 H* (0.7-2.0) mmol/L HDL Cholesterol (40-60) mg/dL 07/05/20 07/06/20 07/06/20 Range/Units 22:37 01:45 06:12 WBC 16.1 H (3.8-10.6) k/uL Neutrophils # 12.4 H (1.3-7.7) k/uL Monocytes # 1.8 H (0-1.0) k/uL Carbon Dioxide (22-30) mmol/L BUN (9-20) mg/dL Creatinine (0.66-1.25) mg/dL Glucose (74-99) mg/dL POC Glucose (mg/dL) 132 H (75-99) mg/dL Plasma Lactic Acid Papa 2.6 H* (0.7-2.0) mmol/L HDL Cholesterol (40-60) mg/dL 07/06/20 07/06/20 07/06/20 Range/Units 07:55 07:55 07:55 WBC 10.7 H (3.8-10.6) k/uL Neutrophils # (1.3-7.7) k/uL Monocytes # 1.4 H (0-1.0) k/uL Carbon Dioxide 17 L (22-30) mmol/L BUN 69 H (9-20) mg/dL Creatinine 2.35 H (0.66-1.25) mg/dL Glucose 138 H (74-99) mg/dL POC Glucose (mg/dL) (75-99) mg/dL Plasma Lactic Acid Papa (0.7-2.0) mmol/L HDL Cholesterol 61 H (40-60) mg/dL 07/06/20 07/06/20 Range/Units 10:40 10:40 WBC (3.8-10.6) k/uL Neutrophils # (1.3-7.7) k/uL Monocytes # 1.3 H (0-1.0) k/uL Carbon Dioxide (22-30) mmol/L BUN (9-20) mg/dL Creatinine (0.66-1.25) mg/dL Glucose (74-99) mg/dL POC Glucose (mg/dL) (75-99) mg/dL Plasma Lactic Acid Papa 2.8 H* (0.7-2.0) mmol/L HDL Cholesterol (40-60) mg/dL
[2020-07-06] MEDS: LACTATED RINGERS 1,000 ML IV SCH ×2 (15:47→17:07)
[2020-07-06] MEDS: DULoxetine HCL 60 MG CAPSULE.DR PO SCH (20:21)
[2020-07-06] MEDS: ARIPiprazole 15 MG TAB PO SCH (20:22)
[2020-07-06 20:52] LABS: Basophils % (A) 0 %; Eosinophils % (A) 0 %; HGB 13.6 gm/dL (13.0-17.5); Lymphocytes # (A) 1.6 k/uL (1.0-4.8); Lymphocytes % (A) 24 %; MCH 33.6 pg (25.0-35.0); MCHC 33.9 g/dL (31.0-37.0); MCV 99.3 fL (80.0-100.0); Macrocytosis Slight; Mean Platelet Volume 8.8; Monocytes # (A) 0.8 k/uL (0-1.0); Monocytes % (A) 12 %; Neutrophils # (A) 4.1 k/uL (1.3-7.7); Neutrophils % (A) 61 %; Platelet Count 186 k/uL (150-450); RBC 4.03 m/uL (4.30-5.90); RDW 15.4 % (11.5-15.5); WBC 6.8 k/uL (3.8-10.6)
[2020-07-07 02:40] LABS: HCT 39.5 % (39.0-53.0); HGB 13.5 gm/dL (13.0-17.5); MCH 33.1 pg (25.0-35.0); MCHC 34.1 g/dL (31.0-37.0); MCV 96.9 fL (80.0-100.0); Mean Platelet Volume 9.3; Platelet Count 190 k/uL (150-450); RBC 4.08 m/uL (4.30-5.90); RDW 14.8 % (11.5-15.5); WBC 5.7 k/uL (3.8-10.6)
[2020-07-07 04:13] LABS: Band Neutrophils % 20 %; Lymphocytes # (M) 2.22 k/uL (1.0-4.8); Monocytes # (M) 0.63 k/uL (0-1.0); Neutrophils % (M) 30 %; Nucleated Red Blood Cells 0 /100 WBC (0-0); Total Cells Counted 100
[2020-07-07] MEDS: LEVOTHYROXINE 75 MCG TAB PO SCH (06:44)
[2020-07-07] MEDS: DIVALPROEX 500 MG TABLET.DR PO SCH ×4 (09:15→20:36)
[2020-07-07] MEDS: DULoxetine HCL 30 MG CAPSULE.DR PO SCH (09:15)
[2020-07-07] MEDS: ATORVASTATIN 20 MG TAB PO SCH (09:15)
[2020-07-07] MEDS: SODIUM BICARBONATE TAB 650 MG TAB PO SCH (09:15)
[2020-07-07] MEDS: CARBIDOPA-LEVODOPA 25-100 MG 1 EACH TAB PO SCH ×2 (09:15→20:37)
[2020-07-07] MEDS: FUROSEMIDE 40 MG TAB PO SCH (09:15)
[2020-07-07] MEDS: DILTIAZEM ORAL 30 MG TAB PO SCH ×4 (09:15→20:37)
[2020-07-07] MEDS: allopurinoL 100 MG TAB PO SCH ×3 (09:15→20:37)
[2020-07-07] MEDS: PANTOPRAZOLE 40 MG/10 ML VIAL IVP SCH ×2 (09:16→20:37)
--- NOTE | 2020-07-07 11:27 | P.CONS ---
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 The patient was recently seen at [facility] due to nausea and vomiting. At that time imaging studies were essentially negative but did show a distended stomach. He presented back to the hospital for continued nausea, vomiting and abdominal pain. The patient was also found to have epistaxis and emesis was described as coffee-ground in color. Currently no further nose bleeding. No further episodes of nausea or vomiting. Of note history of intake and on review of the electronic medical record this patient is only able to provide limited history. The patient has been having some loose watery bowel movements from his ostomy these are darker brown but not black in color. In general the patient is a big eater and consumes large amount of liquid as well. There was concern for inferior wall ST elevation on presentation and he underwent cardiac catheterization which was normal. Laboratory evaluation significant for WBC 16.1, hemoglobin 14.9, platelet count 280,000, total bilirubin 1.0, alkaline phosphatase 99, AST 52 and ALT 21 with amylase of 109 and lipase 97. Review of Systems ROS unobtainable: due to mental status (Review of systems could not be obtained due to developmental delay.) Past Medical History Past Medical History: Coronary Artery Disease (CAD), Dementia, GERD/Reflux, Hypertension, Neurologic Disorder, Prostate Disorder, Renal Disease, Thyroid Disorder Additional Past Medical History / Comment(s): prostate cancer, epilepsy, chf, cerebral palsy History of Any Multi-Drug Resistant Organisms: None Reported Additional Past Surgical History / Comment(s): ileostomy Past Anesthesia/Blood Transfusion Reactions: No Reported Reaction Smoking Status: Never smoker Past Alcohol Use History: None Reported Past Drug Use History: None Reported Additional History: Family history: Reviewed with the patient's caregiver noncontributory to current medical presentation. Medications and Allergies Home Medications Medication Instructions Recorded Confirmed Type Cholecalciferol [Vitamin D3] 2,000 unit PO Q48H 01/09/16 07/05/20 History DULoxetine HCL [Cymbalta] 60 mg PO HS 01/09/16 07/05/20 History Divalproex [Depakote] 500 mg PO QID 01/09/16 07/05/20 History Furosemide [Lasix] 40 mg PO DAILY 01/09/16 07/05/20 History LORazepam [Ativan] 0.5 mg PO TID 01/09/16 07/05/20 History LORazepam [Ativan] 1 mg PO DIRECTED PRN 01/09/16 07/05/20 History Levothyroxine Sodium [Synthroid] 75 mcg PO DAILY 01/09/16 07/05/20 History Loperamide [Imodium] 2 mg PO BID 01/09/16 07/05/20 History Psyllium Husk 100% [Metamucil] 12 gm PO TID 01/09/16 07/05/20 History Simvastatin [Zocor] 20 mg PO HS 01/09/16 07/05/20 History allopurinoL [Zyloprim] 100 mg PO TID 01/09/16 07/05/20 History calcitrioL [Rocaltrol] 0.25 mcg PO TU 01/09/16 07/05/20 History ARIPiprazole [Abilify] 30 mg PO HS 07/05/20 07/05/20 History Acetaminophen Tab [Tylenol Tab] 500 - 1,000 mg PO Q6HR PRN 07/05/20 07/05/20 History Carbidopa-Levodopa 25-100 mg 1 tab PO BID 07/05/20 07/05/20 History [Sinemet 25-100] DULoxetine HCL [Cymbalta] 30 mg PO DAILY 07/05/20 07/05/20 History Denta Paste 1 applic PO BID 07/05/20 07/05/20 History Magnesium Oxide 800 mg PO TID 07/05/20 07/05/20 History Mupirocin 2% Oint [Bactroban 2% 1 applic TOPICAL BID PRN 07/05/20 07/05/20 History Oint] Nystatin 100,000 Unit/gm Oint 1 applic TOPICAL BID PRN 07/05/20 07/05/20 History [Mycostatin Oint] Omeprazole 40 mg PO DAILY 07/05/20 07/05/20 History Simethicone 180mg 180 mg PO BID 07/05/20 07/05/20 History Sodium Bicarbonate Tab 650 mg PO DAILY 07/05/20 07/05/20 History amLODIPine [Norvasc] 2.5 mg PO HS 07/05/20 07/05/20 History guaiFENesin SYRUP 100MG/5ML 1 dose PO Q4H PRN 07/05/20 07/05/20 History [Robitussin] Allergies Allergy/AdvReac Type Severity Reaction Status Date / Time lamotrigine Allergy Unknown Verified 07/05/20 13:42 NSAIDS (Non-Steroidal Allergy Unknown Verified 07/05/20 13:42 Anti-Inflamma Penicillins Allergy Rash/Hives Verified 07/05/20 13:42 Physical Exam Vitals: Vital Signs Temp Pulse Pulse Resp BP BP Pulse Ox 07/06/20 19:36 97.8 F 107 H 19 115/70 84 L 07/06/20 16:45 97.7 F 18 111/73 88 L 07/06/20 14:50 98.1 F 107 H 16 93/51 91 L 07/06/20 12:00 98 F 127 H 132 H 18 109/78 93 L 07/06/20 08:00 98 F 118 H 18 124/82 92 L 07/06/20 04:00 97.8 F 111 H 20 125/84 91 L 07/06/20 02:00 84 20 07/05/20 22:54 97.8 F 20 142/65 95 Intake and Output 07/06/20 07/06/20 07/06/20 06:59 14:59 22:59 Intake Total 0 600 Output Total 650 1925 Balance -650 -1325 Intake: Oral 0 600 Output: Stool 650 1925 Other: # Voids 1 1 # Bowel Movements 0 Weight 108.3 kg On physical examination, patient appears comfortable in no apparent distress. HEAD: Normocephalic, atraumatic. EYES: No scleral icterus. No conjunctival injection. MOUTH: No lesions, tongue midline. NECK: Trachea midline, no gross abnormalities. CHEST: Clear to auscultation with no wheezing or rhonchi appreciated. HEART: Regular rate and rhythm. ABDOMEN: Soft, obese, mild tender to palpation in the right upper quadrant and epigastric region of his abdomen. Bowel sounds are positive. No organomegaly. No guarding or rigidity. EXTREMITIES: No pedal edema. SKIN: No rashes, no jaundice. NEUROLOGIC: Alert but not oriented. Results CBC & Chem 7: 07/07/20 02:12 07/06/20 07:55 Labs: Abnormal Lab Results - Last 24 Hours (Table) 07/05/20 07/05/20 07/06/20 Range/Units 22:37 22:37 01:45 WBC 16.2 H 16.1 H (3.8-10.6) k/uL Neutrophils # 12.4 H (1.3-7.7) k/uL Monocytes # 1.8 H (0-1.0) k/uL Carbon Dioxide (22-30) mmol/L BUN (9-20) mg/dL Creatinine (0.66-1.25) mg/dL Glucose (74-99) mg/dL POC Glucose (mg/dL) (75-99) mg/dL Plasma Lactic Acid Papa 2.6 H* (0.7-2.0) mmol/L HDL Cholesterol (40-60) mg/dL 07/06/20 07/06/20 07/06/20 Range/Units 06:12 07:55 07:55 WBC (3.8-10.6) k/uL Neutrophils # (1.3-7.7) k/uL Monocytes # (0-1.0) k/uL Carbon Dioxide 17 L (22-30) mmol/L BUN 69 H (9-20) mg/dL Creatinine 2.35 H (0.66-1.25) mg/dL Glucose 138 H (74-99) mg/dL POC Glucose (mg/dL) 132 H (75-99) mg/dL Plasma Lactic Acid Papa (0.7-2.0) mmol/L HDL Cholesterol 61 H (40-60) mg/dL 07/06/20 07/06/20 07/06/20 Range/Units 07:55 10:40 10:40 WBC 10.7 H (3.8-10.6) k/uL Neutrophils # (1.3-7.7) k/uL Monocytes # 1.4 H 1.3 H (0-1.0) k/uL Carbon Dioxide (22-30) mmol/L BUN (9-20) mg/dL Creatinine (0.66-1.25) mg/dL Glucose (74-99) mg/dL POC Glucose (mg/dL) (75-99) mg/dL Plasma Lactic Acid Papa 2.8 H* (0.7-2.0) mmol/L HDL Cholesterol (40-60) mg/dL 07/06/20 Range/Units 13:48 WBC (3.8-10.6) k/uL Neutrophils # (1.3-7.7) k/uL Monocytes # (0-1.0) k/uL Carbon Dioxide (22-30) mmol/L BUN (9-20) mg/dL Creatinine (0.66-1.25) mg/dL Glucose (74-99) mg/dL POC Glucose (mg/dL) (75-99) mg/dL Plasma Lactic Acid Papa 8.4 H* (0.7-2.0) mmol/L HDL Cholesterol (40-60) mg/dL Assessment and Plan (1) Nausea and vomiting Narrative/Plan: 69-year-old male presenting to the hospital for nausea and vomiting as well as abdominal pain and tenderness. Recently seen at [facility] where imaging did show distended stomach otherwise no acute findings. Hemoglobin has been stable however there were concerns of coffee-ground emesis in the setting of epistaxis. Unclear etiology, however given imaging findings of distention and persistent symptoms of nausea and vomiting plan will be to have the patient undergo EGD on 07/08/2020 for evaluation of the upper GI tract and to rule out peptic ulcer disease, gastritis, esophagitis or other etiology. Current Visit: Yes Status: Acute Code(s): R11.2 - NAUSEA WITH VOMITING, UNSPECIFIED SNOMED Code(s): 40113400 (2) Coffee ground emesis Current Visit: Yes Status: Acute Code(s): K92.0 - HEMATEMESIS SNOMED Code(s): 73858899 (3) Abdominal pain Current Visit: Yes Status: Acute Code(s): R10.9 - UNSPECIFIED ABDOMINAL PAIN SNOMED Code(s): 25086242 Plan: Supportive care Okay for diet as tolerated Continue Protonix 40 mg twice daily Continue antiemetic as needed for nausea Stool studies ordered including Clostridium difficile given watery output from ostomy Plan for EGD on 06/30/2020 for evaluation of symptoms of nausea and vomiting and abdominal pain Continue other medical management per primary team Thank you for allowing us to participate in care of the patient
--- NOTE | 2020-07-07 11:32 | P.PN ---
Subjective Progress Note Date: 07/07/20 Principal diagnosis: Nausea and vomiting, coffee-ground emesis Patient seen lying in bed in no acute complaints. Still having watery output from ostomy. Testing for Clostridium difficile was negative. Objective - Vital Signs Vital signs: Vital Signs Temp 99.0 F 07/07/20 08:55 Pulse 103 H 07/07/20 08:55 Resp 20 07/07/20 08:55 BP 100/73 07/07/20 08:55 Pulse Ox 90 L 07/07/20 08:55 Intake & Output 07/06/20 07/07/20 07/07/20 18:59 06:59 18:59 Intake Total 600 720 Output Total 2575 4150 400 Balance -1974 320 Weight 92 kg Intake: Oral 600 720 Output: Gastric Drainage 1250 Stool 2575 2900 400 Other: # Voids 1 2 1 # Bowel Movements 3 - Exam On physical examination, patient appears comfortable in no apparent distress. HEAD: Normocephalic, atraumatic. EYES: No scleral icterus. No conjunctival injection. MOUTH: No lesions, tongue midline. NECK: Trachea midline, no gross abnormalities. CHEST: Clear to auscultation with no wheezing or rhonchi appreciated. ABDOMEN: Soft, obese, colostomy appears clean/I/intact with watery output. Bowel sounds are positive. No organomegaly. No guarding or rigidity. EXTREMITIES: No pedal edema. SKIN: No rashes, no jaundice. NEUROLOGIC: Alert but not oriented. - Labs CBC & Chem 7: 07/07/20 02:12 07/06/20 07:55 Labs: Abnormal Lab Results - Last 24 Hours (Table) 07/06/20 07/06/20 07/06/20 Range/Units 13:48 20:00 20:15 RBC 4.03 L (4.30-5.90) m/uL Plasma Lactic Acid Papa 8.4 H* 3.0 H* (0.7-2.0) mmol/L 07/06/20 07/07/20 07/07/20 Range/Units 22:44 02:12 02:12 RBC 4.08 L (4.30-5.90) m/uL Plasma Lactic Acid Papa 2.8 H* 2.1 H* (0.7-2.0) mmol/L Microbiology - Last 24 Hours (Table) 07/06/20 10:57 Stool Culture - Preliminary Stool Assessment and Plan (1) Nausea & vomiting Narrative/Plan: 69-year-old male presenting to the hospital for nausea and vomiting as well as abdominal pain and tenderness. Recently seen at [facility] where imaging did show distended stomach otherwise no acute findings. Hemoglobin has been stable however there were concerns of coffee-ground emesis in the setting of epistaxis. Unclear etiology, however given imaging findings of distention and persistent symptoms of nausea and vomiting plan will be to have the patient undergo EGD on 07/08/2020 for evaluation of the upper GI tract and to rule out peptic ulcer disease, gastritis, esophagitis or other etiology. Current Visit: Yes Status: Acute Code(s): R11.2 - NAUSEA WITH VOMITING, UNSPECIFIED SNOMED Code(s): 49624046 (2) Abdominal pain Current Visit: Yes Status: Acute Code(s): R10.9 - UNSPECIFIED ABDOMINAL PAIN SNOMED Code(s): 47141678 Plan: Supportive care Okay for diet as tolerated, nothing by mouth abdomen after midnight Continue Protonix 40 mg twice daily Continue antiemetic as needed for nausea Stool studies ordered including Clostridium difficile given watery output from ostomy, and negative Plan for EGD on 06/30/2020 for evaluation of symptoms of nausea and vomiting and abdominal pain Continue other medical management per primary team Thank you for allowing us to participate in care of the patient
--- NOTE | 2020-07-07 12:10 | P.PN ---
Subjective Progress Note Date: 07/07/20 HISTORY OF PRESENT ILLNESS: 07/05/2020 This is a 69-year-old male with a past medical history significant for chronic kidney disease, seizure disorder, hypothyroidism, and cognitive delay. Patient is unable to give any history. Majority of history was obtained from the ER staff and EMR. Apparently the patient was having abdominal pain and vomiting. He was evaluated at [facility] and kept overnight for monitoring and discharged yesterday. Patient presented to [facility] today after his guardian noted the patient holding his abdomen and complaining of abdominal pain. EKG completed in the ER revealed ST elevation in the inferior leads. STEMI alert was called. EKG reveals ST elevation in inferior leads, minimal ST depression in precordial leads, and depressed HI interval in V4-V6. Chest xray no acute pulmonary process. Heart size at the upper limits of normal. Laboratory data: WBC 12.8. Hemoglobin 15.7. Platelet count 245. Sodium 138. Potassium 4.6. BUN 56. Creatinine 2.0. Lactic acid 2.1. Current home cardiac medications include Norvasc 2.5 mg daily, Zocor 20 mg daily, and Lasix 40 mg daily 07/07/2020 patient is status post cardiac cath revealing normal coronary arteries. Patient was started on oral Cardizem. Dose was increased to 4 times a day yesterday. Blood pressure 100/73. Heart rate 103. Per nursing, no further episodes of coffee-ground emesis. GI is following. Hemoglobin stable at 13.5. PHYSICAL EXAM: VITAL SIGNS: Reviewed. GENERAL: Well-developed in no acute distress. HEENT: Head is normocephalic. Pupils are equal, round. Sclerae anicteric. Mucous membranes of the mouth are moist. Neck supple. No JVD or thyromegaly LUNGS: Respirations even and unlabored. Lungs essentially clear to auscultation bilaterally. HEART: Regular rate and rhythm. S1 and S2 heard. EXTREMITIES: Normal range of motion. No clubbing or cyanosis. Peripheral pulses intact. Trace bilateral lower extremity edema ASSESSMENT: Acute inferior STEMI, status post cardiac cath revealing normal coronary arteries, likely related to coronary spasms Abdominal pain Chronic kidney disease Elevated lactic acid with mild leukocytosis Hypertension Hyperlipidemia Hypothyroidism Cerebral palsy History of prostate cancer Cognitive impairment PLAN: Continue current dose of Cardizem decrease Lasix to 20 mg daily Monitor blood pressure continue telemetry monitoring await further recommendations from GI Patient currently stable from a cardiac perspective Further recommendations pending patient's course Nurse practitioner note has been reviewed by physician. Signing provider agrees with the documented findings, assessment, and plan of care. Objective - Vital Signs Vital signs: Vital Signs Temp 99.0 F 07/07/20 08:55 Pulse 103 H 07/07/20 08:55 Resp 20 07/07/20 08:55 BP 100/73 07/07/20 08:55 Pulse Ox 90 L 07/07/20 08:55 Intake & Output 07/06/20 07/07/20 07/07/20 18:59 06:59 18:59 Intake Total 600 720 Output Total 2575 4150 400 Balance -1974 320 Weight 92 kg Intake: Oral 600 720 Output: Gastric Drainage 1250 Stool 2575 2900 400 Other: # Voids 1 2 1 # Bowel Movements 3 - Labs CBC & Chem 7: 07/07/20 02:12 07/06/20 07:55 Labs: Abnormal Lab Results - Last 24 Hours (Table) 07/06/20 07/06/20 07/06/20 Range/Units 13:48 20:00 20:15 RBC 4.03 L (4.30-5.90) m/uL Plasma Lactic Acid Papa 8.4 H* 3.0 H* (0.7-2.0) mmol/L 07/06/20 07/07/20 07/07/20 Range/Units 22:44 02:12 02:12 RBC 4.08 L (4.30-5.90) m/uL Plasma Lactic Acid Papa 2.8 H* 2.1 H* (0.7-2.0) mmol/L Microbiology - Last 24 Hours (Table) 07/06/20 10:57 Stool Culture - Preliminary Stool
[2020-07-07] MEDS ORDERED: FUROSEMIDE 10 MG/ML 2 ML VIAL IV ONE (13:10)
[2020-07-07] MEDS: ACETAMINOPHEN TAB 325 MG TAB PO PRN (13:26)
[2020-07-07 13:41] LABS: Glucose,Whole Blood 126 mg/dL (75-99)
--- NOTE | 2020-07-07 16:09 | P.PN ---
Subjective Progress Note Date: 07/07/20 Principal diagnosis: hypoxia and GI bleeding This morning patient was not hypoxic with O2 saturation down to 88% on 4 L. He also had a elevated temperature at 100. He was given some Tylenol. Still with watery ostomy output. Objective - Vital Signs Vital signs: Vital Signs Temp 100.0 F H 07/07/20 11:50 Pulse 102 H 07/07/20 11:50 Resp 18 07/07/20 14:05 BP 120/75 07/07/20 11:50 Pulse Ox 96 07/07/20 14:05 Intake & Output 07/06/20 07/07/20 07/07/20 18:59 06:59 18:59 Intake Total 600 1380 Output Total 2575 4150 1400 Balance -1974 Weight 92 kg Intake: Oral 600 1380 Output: Gastric Drainage 1250 Stool 2575 2900 1400 Other: # Voids 1 2 1 # Bowel Movements 3 - Exam On physical examination, patient appears comfortable in no apparent distress. HEAD: Normocephalic, atraumatic. EYES: No scleral icterus. No conjunctival injection. MOUTH: No lesions, tongue midline. NECK: Trachea midline, no gross abnormalities. CHEST: Clear to auscultation with no wheezing or rhonchi appreciated. ABDOMEN: Soft, obese, colostomy appears clean/I/intact with watery output. Bowel sounds are positive. No organomegaly. No guarding or rigidity. EXTREMITIES: No pedal edema. SKIN: No rashes, no jaundice. NEUROLOGIC: Alert but not oriented. - Labs CBC & Chem 7: 07/07/20 02:12 07/06/20 07:55 Labs: Abnormal Lab Results - Last 24 Hours (Table) 07/06/20 07/06/20 07/06/20 Range/Units 20:00 20:15 22:44 RBC 4.03 L (4.30-5.90) m/uL POC Glucose (mg/dL) (75-99) mg/dL Plasma Lactic Acid Papa 3.0 H* 2.8 H* (0.7-2.0) mmol/L 07/07/20 07/07/20 07/07/20 Range/Units 02:12 02:12 13:39 RBC 4.08 L (4.30-5.90) m/uL POC Glucose (mg/dL) 126 H (75-99) mg/dL Plasma Lactic Acid Papa 2.1 H* (0.7-2.0) mmol/L Microbiology - Last 24 Hours (Table) 07/06/20 10:57 Stool Culture - Preliminary Stool Assessment and Plan Plan: Abdominal pain and coffee-ground emesis, diarrhea tested negative for C. diff -Maintain active type and screen, large-bore IV access -CBC daily -Clear liquid diet -PPI twice a day -GI consult, planning egd tomorrow Epistaxis, controlled -Controlled after pressure for more than 10 minutes -Okay to use Rhino Rocket if necessary -If still uncontrolled, can try Afrin spray Acute inferior STEMI status post cardiac catheterization revealing normal coronaries. Being followed by cardiology, continue current dose of Cardizem Lasix decreased to 20 mg daily. We'll give additional dose of 20 mg IV 1 due to hypoxia. Chronic kidney disease, unclear stage -Continue sodium bicarbonate daily -Avoid nephrotoxins -Renally dose medications -Continue calcium carbonate -Continue calcitriol -Consider nephrology consult Bipolar disorder Seizure disorder History of cerebral palsy and cognitive impairment -Continue Depakote -Ativan when necessary -Continue duloxetine -Continue Sinemet Gout -Continue allopurinol Hypertension -Continue amlodipine -Continue Diltiazem Hypothyroidism -Continue levothyroxine DVT prophylaxis is on hold due to suspected bleed Patient is a full code
[2020-07-07] MEDS: ARIPiprazole 15 MG TAB PO SCH (20:36)
[2020-07-07] MEDS: DULoxetine HCL 60 MG CAPSULE.DR PO SCH (20:37)
[2020-07-08] MEDS ORDERED: FUROSEMIDE 20 MG TAB PO SCH (09:00)
[2020-07-08 09:13] LABS: Appearance,Urine Clear (Clear); Bacteria,Urine Rare /hpf; Bilirubin,Urine Negative (Negative); Blood,Urine Large (Negative); Color,Urine Yellow; Glucose,Urine (UA) Negative (Negative); Hyaline Casts,Urine 3 /lpf (0-2); Ketones,Urine Negative (Negative); Leukocyte Esterase,Urine Trace (Negative); Mucus,Urine Rare /hpf; Nitrite,Urine Negative (Negative); PH, Urine 5.5 (5.0-8.0); Protein,Urine 1+ (Negative); RBC,Urine 171 /hpf (0-5); Specific Gravity,Urine 1.021 (1.001-1.035); Squamous Epithelial Cell,Urine <1 /hpf (0-4); Urobilinogen,Urine <2.0 mg/dL (<2.0); WBC,Urine 8 /hpf (0-5)
[2020-07-08] MEDS: PANTOPRAZOLE 40 MG/10 ML VIAL IVP SCH ×2 (09:31→20:46)
[2020-07-08 09:55] LABS: Calcium 9.6 mg/dL (8.4-10.2); Magnesium 2.3 mg/dL (1.6-2.3); Potassium 4.1 mmol/L (3.5-5.1)
[2020-07-08 10:29] LABS: Basophils % (A) 1 %; Eosinophils # (A) 0.1 k/uL (0-0.7); Eosinophils % (A) 1 %; HCT 40.6 % (39.0-53.0); HGB 13.3 gm/dL (13.0-17.5); Lymphocytes # (A) 1.2 k/uL (1.0-4.8); Lymphocytes % (A) 20 %; MCHC 32.7 g/dL (31.0-37.0); MCV 97.7 fL (80.0-100.0); Mean Platelet Volume 9.6; Monocytes % (A) 17 %; Neutrophils # (A) 3.6 k/uL (1.3-7.7); Neutrophils % (A) 59 %; Platelet Count 223 k/uL (150-450); RBC 4.16 m/uL (4.30-5.90); RDW 15.3 % (11.5-15.5); WBC 6.2 k/uL (3.8-10.6)
[2020-07-08] MEDS ORDERED: LIDOCAINE 1% INJ 10MG/ML (20 ML MDV) ONE (10:58)
[2020-07-08] MEDS ORDERED: PROPOFOL 10 MG/ML 20 ML VIAL IV ONE (10:58)
[2020-07-08] MEDS ORDERED: SODIUM CHLORIDE 0.9% 500 ML 500 ML IV ONE (11:05)
[2020-07-08] MEDS ORDERED: LOPERAMIDE 2 MG CAP PO PRN (11:20)
--- NOTE | 2020-07-08 11:25 | P.PCN ---
Date of Procedure: 07/08/20 Description of Procedure: BRIEF HISTORY: 69-year-old male presenting to the hospital for nausea and vomiting as well as abdominal pain and tenderness. Recently seen at [facility] where imaging did show distended stomach otherwise no acute findings. Hemoglobin has been stable however there were concerns of coffee-ground emesis in the setting of epistaxis. Unclear etiology, however given imaging findings of distention and persistent symptoms of nausea and vomiting plan will be to have the patient undergo EGD for evaluation. PROCEDURE PERFORMED: Esophagogastroduodenoscopy with biopsy. PREOPERATIVE DIAGNOSIS: Nausea and vomiting, epigastric abdominal pain, coffee-ground emesis. ESTIMATED BLOOD LOSS: Minimal. IV sedation per anesthesia. PROCEDURE: After informed consent was obtained, the patient was brought into the endoscopy unit. IV sedation was administered by Anesthesia under continuous monitoring. Initially the Olympus GIF-190 video endoscope was inserted into the mouth. Esophagus intubated without any difficulty. It was gradually advanced into the stomach and duodenum and carefully examined. The bulb and the second part of the duodenum appeared normal, With biopsies taken. The scope at this time was withdrawn to the stomach, adequately insufflated with air, and upon careful examination, mucosa of the antrum, body, cardia and the fundus appeared normal, Except for some retained food in the fundus, cardia and body of the stomach as w ell as some mild punctate erythema in the antrum and body suggestive of mild gastritis with biopsies taken. The scope was then withdrawn into the esophagus. The GE junction was located at 37 cm from the incisors. 2 cm hiatal hernia noted. 10 cm of LA grade D esophagitis extending from 20 cm from the incisors to the GE junction at 37 cm from the incisors with biopsies of the esophagus taken. IMPRESSION: 1. LA grade D esophagitis . 2. Mild gastritis. 3. Moderate amount of retained food debris in the stomach. 4. Small hiatal hernia. 5. Biopsies of the duodenum, antrum and body and esophagus. RECOMMENDATIONS: The findings of this examination were discussed with the patient in the medical team. Okay to resume diet. Okay to resume medications. Continue Protonix 40 mg twice daily. Sucralfate 4 times a day added. Await pathology from biopsies. Continue other medical management per the primary team. No plans for further endoscopic evaluation at this time.
[2020-07-08 12:14] LABS: Urine Alcohol Negative (Negative); Urine Barbiturate Negative (Negative); Urine Cocaine Negative (Negative); Urine Methadone Negative (Negative); Urine Opiates Negative (Negative); Urine Phencyclidine Negative (Negative)
[2020-07-08] MEDS: allopurinoL 100 MG TAB PO SCH ×3 (12:28→20:47)
[2020-07-08] MEDS: DILTIAZEM ORAL 30 MG TAB PO SCH (12:28)
[2020-07-08] MEDS: DIVALPROEX 500 MG TABLET.DR PO SCH ×4 (12:28→20:47)
[2020-07-08] MEDS: DULoxetine HCL 30 MG CAPSULE.DR PO SCH (12:35)
[2020-07-08] MEDS: CARBIDOPA-LEVODOPA 25-100 MG 1 EACH TAB PO SCH ×2 (12:35→20:47)
[2020-07-08] MEDS: CHOLECALCIFEROL 25 MCG (1000 IU) TABLET PO SCH (12:35)
[2020-07-08] MEDS: ATORVASTATIN 20 MG TAB PO SCH (12:35)
[2020-07-08] MEDS: LEVOTHYROXINE 75 MCG TAB PO SCH (12:35)
[2020-07-08] MEDS: SUCRALFATE 1 GM TAB PO SCH ×3 (12:36→20:47)
[2020-07-08] MEDS: SODIUM BICARBONATE TAB 650 MG TAB PO SCH (12:36)
--- NOTE | 2020-07-08 12:38 | P.PN ---
Subjective Progress Note Date: 07/08/20 HISTORY OF PRESENT ILLNESS: 07/05/2020 This is a 69-year-old male with a past medical history significant for chronic kidney disease, seizure disorder, hypothyroidism, and cognitive delay. Patient is unable to give any history. Majority of history was obtained from the ER staff and EMR. Apparently the patient was having abdominal pain and vomiting. He was evaluated at [facility] and kept overnight for monitoring and discharged yesterday. Patient presented to [facility] today after his guardian noted the patient holding his abdomen and complaining of abdominal pain. EKG completed in the ER revealed ST elevation in the inferior leads. STEMI alert was called. EKG reveals ST elevation in inferior leads, minimal ST depression in precordial leads, and depressed MI interval in V4-V6. Chest xray no acute pulmonary process. Heart size at the upper limits of normal. Laboratory data: WBC 12.8. Hemoglobin 15.7. Platelet count 245. Sodium 138. Potassium 4.6. BUN 56. Creatinine 2.0. Lactic acid 2.1. Current home cardiac medications include Norvasc 2.5 mg daily, Zocor 20 mg daily, and Lasix 40 mg daily 07/07/2020 patient is status post cardiac cath revealing normal coronary arteries. Patient was started on oral Cardizem. Dose was increased to 4 times a day yesterday. Blood pressure 100/73. Heart rate 103. Per nursing, no further episodes of coffee-ground emesis. GI is following. Hemoglobin stable at 13.5. 07/08/2020 Patient examined this morning at the bedside. He is resting comfortably. Patient is scheduled for EGD today. Blood pressure 130/58. Heart rate in the 80s. He is on nasal cannula with oxygen saturations greater then 92%. He is afebrile. PHYSICAL EXAM: VITAL SIGNS: Reviewed. GENERAL: Well-developed in no acute distress. HEENT: Head is normocephalic. Pupils are equal, round. Sclerae anicteric. Mucous membranes of the mouth are moist. Neck supple. No JVD or thyromegaly LUNGS: Respirations even and unlabored. Lungs essentially clear to auscultation bilaterally. HEART: Regular rate and rhythm. S1 and S2 heard. EXTREMITIES: Normal range of motion. No clubbing or cyanosis. Peripheral pulses intact. Trace bilateral lower extremity edema ASSESSMENT: Acute inferior STEMI, status post cardiac cath revealing normal coronary arteries, likely related to coronary spasms Abdominal pain Chronic kidney disease Elevated lactic acid with mild leukocytosis Hypertension Hyperlipidemia Hypothyroidism Cerebral palsy History of prostate cancer Cognitive impairment PLAN: Change Cardizem to Cardizem CD 120 mg daily Monitor blood pressure continue telemetry monitoring Patient to undergo EGD today with Dr. Melissa Patient currently stable from a cardiac perspective Further recommendations pending patient's course Nurse practitioner note has been reviewed by physician. Signing provider agrees with the documented findings, assessment, and plan of care. Objective - Vital Signs Vital signs: Vital Signs Temp 97.8 F 07/08/20 04:00 Pulse 84 07/08/20 04:00 Resp 20 07/08/20 04:00 BP 130/58 07/08/20 04:00 Pulse Ox 95 07/08/20 12:03 Intake & Output 07/07/20 07/08/20 07/08/20 18:59 06:59 18:59 Intake Total 2580 50 Output Total 3100 1400 100 Balance -520 -1400 -50 Weight 92.5 kg Intake: IV 50 Oral 2580 0 Output: Urine 500 Stool 2600 1400 100 Other: Voiding Method Indwelling Catheter Indwelling Catheter # Voids 1 # Bowel Movements 1 - Labs CBC & Chem 7: 07/08/20 09:16 07/08/20 09:16 Labs: Abnormal Lab Results - Last 24 Hours (Table) 07/07/20 07/08/20 07/08/20 Range/Units 13:39 08:33 09:16 RBC 4.16 L (4.30-5.90) m/uL Sodium (137-145) mmol/L Carbon Dioxide (22-30) mmol/L BUN (9-20) mg/dL Creatinine (0.66-1.25) mg/dL Glucose (74-99) mg/dL POC Glucose (mg/dL) 126 H (75-99) mg/dL Urine Protein 1+ H (Negative) Urine Blood Large H (Negative) Ur Leukocyte Esterase Trace H (Negative) Urine RBC 171 H (0-5) /hpf Urine WBC 8 H (0-5) /hpf Urine Bacteria Rare H (None) /hpf Hyaline Casts 3 H (0-2) /lpf Urine Mucus Rare H (None) /hpf 07/08/20 Range/Units 09:16 RBC (4.30-5.90) m/uL Sodium 134 L (137-145) mmol/L Carbon Dioxide 13 L (22-30) mmol/L BUN 96 H (9-20) mg/dL Creatinine 2.58 H (0.66-1.25) mg/dL Glucose 120 H (74-99) mg/dL POC Glucose (mg/dL) (75-99) mg/dL Urine Protein (Negative) Urine Blood (Negative) Ur Leukocyte Esterase (Negative) Urine RBC (0-5) /hpf Urine WBC (0-5) /hpf Urine Bacteria (None) /hpf Hyaline Casts (0-2) /lpf Urine Mucus (None) /hpf
[2020-07-08] MEDS: DILTIAZEM CD 120 MG CAP.ER.24H PO SCH (12:42)
--- NOTE | 2020-07-08 12:53 | XR ---
EXAMINATION TYPE: XR chest 1V portable DATE OF EXAM: 07/08/2020 COMPARISON: 07/05/2020 HISTORY: Fever and hypoxia TECHNIQUE: Single frontal view of the chest is obtained. FINDINGS: There has been development of a partially consolidative opacity left lung base. Right lung is clear. There is no pneumothorax or significant pleural effusion. The heart and pulmonary vasculature are normal. The osseous structures are grossly intact. IMPRESSION: Interval development of a partially consolidative opacity left lung base suspicious for inflammatory process. Follow-up to resolution is recommended.
--- NOTE | 2020-07-08 14:14 | P.PN ---
Subjective Progress Note Date: 07/08/20 Principal diagnosis: hypoxia and GI bleeding Doing well, no new complaints. No fevers, no chills. No vomiting. Objective - Vital Signs Vital signs: Vital Signs Temp 98.3 F 07/08/20 11:30 Pulse 85 07/08/20 11:30 Resp 16 07/08/20 11:30 BP 114/65 07/08/20 11:30 Pulse Ox 95 07/08/20 12:03 Intake & Output 07/07/20 07/08/20 07/08/20 18:59 06:59 18:59 Intake Total 2580 890 Output Total 3100 1400 200 Balance -520 -1400 690 Weight 92.5 kg Intake: IV 50 Oral 2580 840 Output: Urine 500 Stool 2600 1400 200 Other: Voiding Method Indwelling Catheter Indwelling Catheter Indwelling Catheter # Voids 1 # Bowel Movements 1 - Exam On physical examination, patient appears comfortable in no apparent distress. HEAD: Normocephalic, atraumatic. EYES: No scleral icterus. No conjunctival injection. MOUTH: No lesions, tongue midline. NECK: Trachea midline, no gross abnormalities. CHEST: Clear to auscultation with no wheezing or rhonchi appreciated. ABDOMEN: Soft, obese, colostomy appears clean/I/intact with watery output. Bowel sounds are positive. No organomegaly. No guarding or rigidity. EXTREMITIES: No pedal edema. SKIN: No rashes, no jaundice. NEUROLOGIC: Alert but not oriented. - Labs CBC & Chem 7: 07/08/20 09:16 07/08/20 09:16 Labs: Abnormal Lab Results - Last 24 Hours (Table) 07/08/20 07/08/20 07/08/20 Range/Units 08:33 09:16 09:16 RBC 4.16 L (4.30-5.90) m/uL Sodium 134 L (137-145) mmol/L Carbon Dioxide 13 L (22-30) mmol/L BUN 96 H (9-20) mg/dL Creatinine 2.58 H (0.66-1.25) mg/dL Glucose 120 H (74-99) mg/dL Urine Protein 1+ H (Negative) Urine Blood Large H (Negative) Ur Leukocyte Esterase Trace H (Negative) Urine RBC 171 H (0-5) /hpf Urine WBC 8 H (0-5) /hpf Urine Bacteria Rare H (None) /hpf Hyaline Casts 3 H (0-2) /lpf Urine Mucus Rare H (None) /hpf Assessment and Plan Plan: Abdominal pain and coffee-ground emesis, diarrhea tested negative for C. diff -Resume regular diet -GI consult, egd showed gastritis and esophagitis, no apparant source of bleeding, continue PPI. Epistaxis, controlled -Controlled after pressure for more than 10 minutes -No recurrence Acute inferior STEMI status post cardiac catheterization revealing normal coronaries. Being followed by cardiology, continue Cardizem Hold lasix for now due to LUIS ALBERTO. Oxygenation ok. LUIS ALBERTO on chronic kidney disease, unclear stage -Hold lasix. -Continue sodium bicarbonate daily -Avoid nephrotoxins -Renaly dose medications -Continue calcium carbonate -Continue calcitriol -Consult nephrology Bipolar disorder Seizure disorder History of cerebral palsy and cognitive impairment -Continue Depakote -Ativan when necessary -Continue duloxetine -Continue Sinemet Gout -Continue allopurinol Hypertension -Continue amlodipine -Continue Diltiazem Hypothyroidism -Continue levothyroxine DVT prophylaxis is on hold due to suspected bleed Patient is a full code
[2020-07-08] MEDS: ARIPiprazole 15 MG TAB PO SCH (20:47)
[2020-07-08] MEDS: DULoxetine HCL 60 MG CAPSULE.DR PO SCH (20:47)
[2020-07-09] MEDS: LEVOTHYROXINE 75 MCG TAB PO SCH (06:23)
[2020-07-09] MEDS: PANTOPRAZOLE 40 MG TABLET PO SCH ×2 (06:23→17:43)
[2020-07-09] MEDS: SUCRALFATE 1 GM TAB PO SCH ×4 (06:23→21:29)
[2020-07-09 08:01] LABS: HCT 41.9 % (39.0-53.0); HGB 14.5 gm/dL (13.0-17.5); MCH 33.8 pg (25.0-35.0); MCHC 34.5 g/dL (31.0-37.0); MCV 97.8 fL (80.0-100.0); Mean Platelet Volume 9.5; Platelet Count 280 k/uL (150-450); RBC 4.29 m/uL (4.30-5.90); RDW 14.6 % (11.5-15.5)
[2020-07-09 08:17] LABS: Albumin 4.2 g/dL (3.5-5.0); Calcium 9.9 mg/dL (8.4-10.2); Magnesium 2.6 mg/dL (1.6-2.3); Phosphorus 8.4 mg/dL (2.5-4.5); Potassium 4.1 mmol/L (3.5-5.1); Total Bilirubin 0.8 mg/dL (0.2-1.3); Total Protein 7.9 g/dL (6.3-8.2)
[2020-07-09 08:24] LABS: Band Neutrophils % 17 %; Eosinophils # (M) 0.08 k/uL (0-0.7); Lymphocytes # (M) 1.51 k/uL (1.0-4.8); Metamyelocytes # (M) 0.25 k/uL (0); Metamyelocytes % 3 %; Monocytes # (M) 1.26 k/uL (0-1.0); Myelocytes # (M) 0.17 k/uL (0); Myelocytes % 2 %; Neutrophils % (M) 45 %; Nucleated Red Blood Cells 2 /100 WBC (0-0); Total Cells Counted 200; WBC 8.4 k/uL (3.8-10.6)
[2020-07-09 08:25] LABS: Poikilocytosis (M) Present; Polychromasia Present; Toxic Granulation Present
[2020-07-09] MEDS: DILTIAZEM CD 120 MG CAP.ER.24H PO SCH (09:19)
[2020-07-09] MEDS: allopurinoL 100 MG TAB PO SCH ×3 (09:19→21:29)
[2020-07-09] MEDS: DULoxetine HCL 30 MG CAPSULE.DR PO SCH (09:19)
[2020-07-09] MEDS: SODIUM BICARBONATE TAB 650 MG TAB PO SCH (09:19)
[2020-07-09] MEDS: ATORVASTATIN 20 MG TAB PO SCH (09:19)
[2020-07-09] MEDS: DIVALPROEX 500 MG TABLET.DR PO SCH ×4 (09:19→21:29)
[2020-07-09] MEDS: CARBIDOPA-LEVODOPA 25-100 MG 1 EACH TAB PO SCH ×2 (09:19→19:58)
[2020-07-09] MEDS ORDERED: SODIUM BICARB IV SCH ×4 (09:45→15:15)
[2020-07-09] MEDS ORDERED: SODIUM CHLORIDE 0.45% IV SCH ×4 (09:45→15:15)
[2020-07-09] MEDS ORDERED: SODIUM CHLORIDE 0.45% 1,000 ML with SODIUM BICARB (1 MEQ/ML) 150 ML IV SCH ×2 (10:00)
[2020-07-09] MEDS ORDERED: VANCOMYCIN IV PER PHARMACY 1 EACH MISC MISCELLANE PRN (10:43)
[2020-07-09] MEDS ORDERED: SODIUM CHLORIDE 0.9% 1,000 ML IV STA (10:46)
--- NOTE | 2020-07-09 10:52 | P.PN ---
Subjective Progress Note Date: 07/09/20 HISTORY OF PRESENT ILLNESS: 07/05/2020 This is a 69-year-old male with a past medical history significant for chronic kidney disease, seizure disorder, hypothyroidism, and cognitive delay. Patient is unable to give any history. Majority of history was obtained from the ER staff and EMR. Apparently the patient was having abdominal pain and vomiting. He was evaluated at [facility] and kept overnight for monitoring and discharged yesterday. Patient presented to [facility] today after his guardian noted the patient holding his abdomen and complaining of abdominal pain. EKG completed in the ER revealed ST elevation in the inferior leads. STEMI alert was called. EKG reveals ST elevation in inferior leads, minimal ST depression in precordial leads, and depressed OK interval in V4-V6. Chest xray no acute pulmonary process. Heart size at the upper limits of normal. Laboratory data: WBC 12.8. Hemoglobin 15.7. Platelet count 245. Sodium 138. Potassium 4.6. BUN 56. Creatinine 2.0. Lactic acid 2.1. Current home cardiac medications include Norvasc 2.5 mg daily, Zocor 20 mg daily, and Lasix 40 mg daily 07/07/2020 patient is status post cardiac cath revealing normal coronary arteries. Patient was started on oral Cardizem. Dose was increased to 4 times a day yesterday. Blood pressure 100/73. Heart rate 103. Per nursing, no further episodes of coffee-ground emesis. GI is following. Hemoglobin stable at 13.5. 07/08/2020 Patient examined this morning at the bedside. He is resting comfortably. Patient is scheduled for EGD today. Blood pressure 130/58. Heart rate in the 80s. He is on nasal cannula with oxygen saturations greater then 92%. He is afebrile. 07/09/2020 Patient examined this morning at the bedside. Patient underwent EGD yesterday with Dr. Melissa revealing gastritis and esophagitis. Hemoglobin remains stable. Blood pressure 126/78. Heart rate in the 80s. PHYSICAL EXAM: VITAL SIGNS: Reviewed. GENERAL: Well-developed in no acute distress. HEENT: Head is normocephalic. Pupils are equal, round. Sclerae anicteric. Mucous membranes of the mouth are moist. Neck supple. No JVD or thyromegaly LUNGS: Respirations even and unlabored. Lungs essentially clear to auscultation bilaterally. HEART: Regular rate and rhythm. S1 and S2 heard. EXTREMITIES: Normal range of motion. No clubbing or cyanosis. Peripheral pulses intact. Trace bilateral lower extremity edema ASSESSMENT: Acute inferior STEMI, status post cardiac cath revealing normal coronary arteries, likely related to coronary spasms Abdominal pain Chronic kidney disease Elevated lactic acid with mild leukocytosis Hypertension Hyperlipidemia Hypothyroidism Cerebral palsy History of prostate cancer Cognitive impairment PLAN: Continue Cardizem CD 120 mg daily Monitor blood pressure Continue telemetry monitoring Patient currently stable for discharge from a cardiac perspective Patient to follow up outpatient with Dr. Zamora. Nurse practitioner note has been reviewed by physician. Signing provider agrees with the documented findings, assessment, and plan of care. Objective - Vital Signs Vital signs: Vital Signs Temp 98.5 F 07/09/20 04:00 Pulse 84 07/09/20 04:00 Resp 18 07/09/20 04:00 BP 126/78 07/09/20 04:00 Pulse Ox 93 L 07/09/20 04:00 Intake & Output 07/08/20 07/09/20 07/09/20 18:59 06:59 18:59 Intake Total 1640 720 Output Total 1475 1550 400 Balance 165 -830 -400 Weight 92.5 kg Intake: IV 50 Oral 1590 720 Output: Urine 350 Stool 1475 1200 400 Other: Voiding Method Indwelling Catheter Indwelling Catheter - Labs CBC & Chem 7: 07/09/20 07:39 07/09/20 07:39 Labs: Abnormal Lab Results - Last 24 Hours (Table) 07/09/20 07/09/20 Range/Units 07:39 07:39 RBC 4.29 L (4.30-5.90) m/uL Monocytes # (Manual) 1.26 H (0-1.0) k/uL Metamyelocytes # (Man) 0.25 H (0) k/uL Myelocytes # (Manual) 0.17 H (0) k/uL Nucleated RBCs 2 H (0-0) /100 WBC Sodium 126 L (137-145) mmol/L Chloride 97 L (98-107) mmol/L Carbon Dioxide 7 L* (22-30) mmol/L BUN 109 H* (9-20) mg/dL Creatinine 3.17 H (0.66-1.25) mg/dL Glucose 131 H (74-99) mg/dL Phosphorus 8.4 H (2.5-4.5) mg/dL Magnesium 2.6 H (1.6-2.3) mg/dL Microbiology - Last 24 Hours (Table) 07/06/20 10:57 Stool Culture - Preliminary Stool
[2020-07-09] MEDS ORDERED: CEFEPIME 1 GM in SODIUM CHLORIDE 0.9% 50 ML IVPB ONE (11:00)
[2020-07-09] MEDS ORDERED: VANCOMYCIN 1,500 MG in SODIUM CHLORIDE 0.9% 250 ML IVPB ONE (12:00)
--- NOTE | 2020-07-09 12:52 | P.PN ---
Subjective Progress Note Date: 07/09/20 Principal diagnosis: Coffee-ground emesis This is a 69-year-old male with multiple medical comorbidities including developmental delay who presented to the hospital for chest pain for which a STEMI was called. The patient had a cardiac catheterization showing normal vessels. He was recently seen at [facility] for nausea and vomiting, however no scopes were completed at that time. He was noted here to have epistaxis, then had further coffee-ground emesis. He is status post upper endoscopy 2 days ago. He has had no further episodes of coffee-ground emesis, stool is brown and loose in his ostomy bag. He continues with Protonix and sucralfate. Hemoglobin is stable at 14.5. Objective - Vital Signs Vital signs: Vital Signs Temp 98.5 F 07/09/20 04:00 Pulse 84 07/09/20 04:00 Resp 18 07/09/20 04:00 BP 126/78 07/09/20 04:00 Pulse Ox 93 L 07/09/20 04:00 Intake & Output 07/08/20 07/09/20 07/09/20 18:59 06:59 18:59 Intake Total 1640 720 Output Total 1475 1550 400 Balance 165 -830 -400 Weight 92.5 kg Intake: IV 50 Oral 1590 720 Output: Urine 350 Stool 1475 1200 400 Other: Voiding Method Indwelling Catheter Indwelling Catheter - Exam General appearance: The patient is alert, oriented, appears in no acute distress. HET: Head is normocephalic and atraumatic. Conjunctiva pink. Sclera anicteric. Neck: Supple without lymphadenopathy. Abdomen: Soft, nontender, nondistended with bowel sounds, ostomy with large amount of liquid brown output. No guarding or rigidity. Extremities: Normal skin color and turgor. No pedal edema Skin: No rashes, no jaundice Neurological: No focal deficits. Alert and oriented 3. - Labs CBC & Chem 7: 07/09/20 07:39 07/09/20 07:39 Labs: Abnormal Lab Results - Last 24 Hours (Table) 07/09/20 07/09/20 Range/Units 07:39 07:39 RBC 4.29 L (4.30-5.90) m/uL Monocytes # (Manual) 1.26 H (0-1.0) k/uL Metamyelocytes # (Man) 0.25 H (0) k/uL Myelocytes # (Manual) 0.17 H (0) k/uL Nucleated RBCs 2 H (0-0) /100 WBC Sodium 126 L (137-145) mmol/L Chloride 97 L (98-107) mmol/L Carbon Dioxide 7 L* (22-30) mmol/L BUN 109 H* (9-20) mg/dL Creatinine 3.17 H (0.66-1.25) mg/dL Glucose 131 H (74-99) mg/dL Phosphorus 8.4 H (2.5-4.5) mg/dL Magnesium 2.6 H (1.6-2.3) mg/dL Microbiology - Last 24 Hours (Table) 07/06/20 10:57 Stool Culture - Preliminary Stool Assessment and Plan (1) Nausea & vomiting Narrative/Plan: 69-year-old male presenting to the hospital for nausea and vomiting as well as abdominal pain and tenderness. Recently seen at [facility] where imaging did show distended stomach otherwise no acute findings. Hemoglobin has been stable however there were concerns of coffee-ground emesis in the setting of epistaxis. Unclear etiology, however given imaging findings of distention and persistent symptoms of nausea and vomiting plan will be to have the patient undergo EGD on 07/08/2020 for evaluation of the upper GI tract and to rule out peptic ulcer disease, gastritis, esophagitis or other etiology. Current Visit: Yes Status: Acute Code(s): R11.2 - NAUSEA WITH VOMITING, UNSPECIFIED SNOMED Code(s): 52034856 (2) Abdominal pain Current Visit: Yes Status: Acute Code(s): R10.9 - UNSPECIFIED ABDOMINAL PAIN SNOMED Code(s): 23803137 (3) Coffee ground emesis Narrative/Plan: He is status post upper endoscopy which showed only grade D esophagitis, mild gastritis, mild amount of retained food and debris in the stomach, small hiatal hernia area and biopsies were taken. Current Visit: Yes Status: Acute Code(s): K92.0 - HEMATEMESIS SNOMED Code(s): 07959924 (4) Diarrhea Narrative/Plan: Patient having increased output from his ostomy. Stool studies ordered and negative. Will start on Imodium 4 mg QID as needed. Current Visit: Yes Status: Acute Code(s): R19.7 - DIARRHEA, UNSPECIFIED SNOMED Code(s): 28059101 Plan: 1. Supportive care 2. Okay for diet as tolerated 3. Continue Protonix 40 mg twice daily 4. Continue antiemetic as needed for nausea 5. Stool studies ordered and negative, will change Imodium to 4mg QID 6. Patient is status post upper endoscopy 7. Continue other medical management per primary team Thank you for allowing us to participate in care of the patient, we will continue to follow Dr. Juan Jose Corcoran I agree with the dictator's note, documented as a scribe by Mariann Becker.
[2020-07-09] MEDS ORDERED: DEXTROSE 5% IN WATER 1,000 ML with SODIUM BICARB (1 MEQ/ML) 150 ML IV SCH (13:00)
[2020-07-09] MEDS: LOPERAMIDE 2 MG CAP PO PRN ×2 (14:15→19:58)
--- NOTE | 2020-07-09 14:57 | CONS ---
CONSULTATION REASON FOR CONSULT: Renal failure. HISTORY OF PRESENT ILLNESS: The patient is a 69-year-old male who was initially admitted to the hospital on 07/05/2020 with mental status changes, the patient has underlying cognitive impairment. His EKG on admission showed ST-segment elevation and patient had a cardiac catheterization done on 07/05/2020, which did not reveal any major coronary artery disease. Patient's serum creatinine was 2.0 on initial admission. It is increased to 3.17 today. The patient is also quite acidotic with CO2 of 7 today. He has an ileostomy and has had large amounts of output as much as 4 L for stool over 24 hours. Currently patient is not on any IV fluids. Blood pressure is on the lower side with systolic around 114-126 mmHg. The patient is not maintained on any nephrotoxic medications. It appears that patient has underlying CKD as well with previous creatinine not available for comparison. The patient has an indwelling Sharpe catheter with 24-hour urine output documented at about 500 mL. However, this may be inaccurate as Sharpe catheter was placed later on in the day yesterday. PAST MEDICAL HISTORY: Chronic kidney disease, baseline not known. The patient is developmentally challenged. He also has history of hypertension, diabetes, gastroesophageal reflux disease, hypothyroidism, history of prostate cancer, history of epilepsy, cerebral palsy, CHF. PAST SURGICAL HISTORY: Ileostomy, details not known. SOCIAL HISTORY: Negative for smoking, drug abuse or alcohol abuse. MEDICATIONS: Medications prior to admission included vitamin D3, Cymbalta, Depakote, Lasix, Ativan, Synthroid, Imodium, Zocor, Zyloprim, Rocaltrol, Abilify, Sinemet, Cymbalta, magnesium, statin, simethicone, sodium bicarb, amlodipine, Robitussin, omeprazole. ALLERGIES: Allergies include LAMOTRIGINE, NSAIDS, PENICILLINS. REVIEW OF SYSTEMS: As per HPI. Other systems negative. PHYSICAL EXAMINATION: Patient is currently comfortable, not in any acute distress. Blood pressure was 137/72, heart rate 92 per minute. He is afebrile. EXAMINATION OF THE HEART: S1, S2. EXAMINATION OF THE LUNGS: Bilateral breath sounds are heard. Abdomen is soft, nontender. Examination of lower extremities shows no evidence of edema. [employer] exam cannot be performed in detail. LABS: Labs show hemoglobin 14.5, sodium 126, potassium 4.1, chloride 97, CO2 is 7, BUN 109, serum creatinine 3.17. UA shows 1+ protein, large blood, WBCs 8. ASSESSMENT: 1. Acute kidney injury, prerenal associated with volume depletion and some degree of hypotension causing acute tubular necrosis. Add IV hydration. The patient is currently not on any nephrotoxic medications. Treat acidosis. Monitor urine output accurately. Continue with the Sharpe catheter. 2. Severe metabolic acidosis and anion gap associated with renal failure as well as gastrointestinal fluid loss with large output from the ileostomy about 4 L for 24 hours. 3. Hyponatremia, which is hypovolemic. 4. History of cerebral palsy and seizure disorder. 5. History of sigmoid volvulus with colectomy and ileostomy. PLAN: Start IV bicarb. I will add 150 mEq of sodium bicarb in half-normal saline since sodium is low. We will repeat electrolytes this evening. Avoid any nephrotoxic medications. May continue with Rocaltrol for now and repeat labs again in a.m. Thank you for this consultation. Will continue to follow the patient with you during his hospitalization. MMODL / IJN: [id number] /
--- NOTE | 2020-07-09 16:04 | P.PN ---
Subjective Progress Note Date: 07/09/20 Principal diagnosis: hypoxia and GI bleeding Patient has had no fevers since last night. Nursing reported that he has not been eating his diet as he used to. No other overnight events. Objective - Vital Signs Vital signs: Vital Signs Temp 97.1 F L 07/09/20 08:00 Pulse 87 07/09/20 12:00 Resp 18 07/09/20 04:00 BP 117/73 07/09/20 12:00 Pulse Ox 95 07/09/20 12:00 Intake & Output 07/08/20 07/09/20 07/09/20 18:59 06:59 18:59 Intake Total 1640 720 240 Output Total 1475 1550 950 Balance 165 -090 -710 Weight 92.5 kg Intake: IV 50 Oral 1590 720 240 Output: Urine 350 Stool 1475 1200 950 Other: Voiding Method Indwelling Catheter Indwelling Catheter Indwelling Catheter - Labs CBC & Chem 7: 07/09/20 07:39 07/09/20 07:39 Labs: Abnormal Lab Results - Last 24 Hours (Table) 07/09/20 07/09/20 Range/Units 07:39 07:39 RBC 4.29 L (4.30-5.90) m/uL Monocytes # (Manual) 1.26 H (0-1.0) k/uL Metamyelocytes # (Man) 0.25 H (0) k/uL Myelocytes # (Manual) 0.17 H (0) k/uL Nucleated RBCs 2 H (0-0) /100 WBC Sodium 126 L (137-145) mmol/L Chloride 97 L (98-107) mmol/L Carbon Dioxide 7 L* (22-30) mmol/L BUN 109 H* (9-20) mg/dL Creatinine 3.17 H (0.66-1.25) mg/dL Glucose 131 H (74-99) mg/dL Phosphorus 8.4 H (2.5-4.5) mg/dL Magnesium 2.6 H (1.6-2.3) mg/dL Microbiology - Last 24 Hours (Table) 07/06/20 10:57 Stool Culture - Preliminary Stool Assessment and Plan Plan: Abdominal pain and coffee-ground emesis, diarrhea tested negative for C. diff -Resume regular diet -GI consult, egd showed gastritis and esophagitis, no apparant source of bleeding, continue PPI. Epistaxis, controlled -Controlled after pressure for more than 10 minutes -No recurrence Acute inferior STEMI status post cardiac catheterization revealing normal coronaries. Likely secondary to coronary spasm. Being followed by cardiology, continue Cardizem Hold lasix for now due to LUIS ALBERTO. Oxygenation ok. Worsening LUIS ALBERTO on chronic kidney disease, currently with severe metabolic acidosis, bicarb down to 7 -Continue to hold lasix. -Seen by nephrology, started on bicarbonate drip -Avoid nephrotoxins -Renaly dose medications Bipolar disorder Seizure disorder History of cerebral palsy and cognitive impairment -Continue Depakote -Ativan when necessary -Continue duloxetine -Continue Sinemet Gout -Continue allopurinol Hypertension -Continue amlodipine -Continue Diltiazem Hypothyroidism -Continue levothyroxine DVT prophylaxis is on hold due to suspected bleed Patient is a full code
[2020-07-09] MEDS: SODIUM CHLORIDE 0.45% 1,000 ML with SODIUM BICARB (1 MEQ/ML) 150 ML IV SCH ×2 (17:42)
[2020-07-09] MEDS: CEFEPIME 1 GM in SODIUM CHLORIDE 0.9% 50 ML IVPB SCH (19:58)
[2020-07-09] MEDS: DULoxetine HCL 60 MG CAPSULE.DR PO SCH (19:58)
[2020-07-09] MEDS: ARIPiprazole 15 MG TAB PO SCH (20:00)
[2020-07-10] MEDS: SODIUM CHLORIDE 0.45% 1,000 ML with SODIUM BICARB (1 MEQ/ML) 150 ML IV SCH ×2 (02:14)
[2020-07-10] MEDS: ACETAMINOPHEN TAB 325 MG TAB PO PRN (03:03)
[2020-07-10] MEDS: ONDANSETRON 4 MG/2 ML VIAL IVP PRN (03:03)
[2020-07-10] MEDS: LOPERAMIDE 2 MG CAP PO PRN ×5 (03:03→22:34)
[2020-07-10] MEDS: LEVOTHYROXINE 75 MCG TAB PO SCH (06:21)
[2020-07-10] MEDS: PANTOPRAZOLE 40 MG TABLET PO SCH ×2 (06:22→18:26)
[2020-07-10] MEDS: ATORVASTATIN 20 MG TAB PO SCH (09:54)
[2020-07-10] MEDS: DILTIAZEM CD 120 MG CAP.ER.24H PO SCH (09:54)
[2020-07-10] MEDS: SUCRALFATE 1 GM TAB PO SCH ×4 (09:54→22:14)
[2020-07-10] MEDS: CHOLECALCIFEROL 25 MCG (1000 IU) TABLET PO SCH (09:54)
[2020-07-10] MEDS: allopurinoL 100 MG TAB PO SCH ×3 (09:54→22:14)
[2020-07-10] MEDS: DIVALPROEX 500 MG TABLET.DR PO SCH ×4 (09:54→22:14)
[2020-07-10] MEDS: CARBIDOPA-LEVODOPA 25-100 MG 1 EACH TAB PO SCH ×2 (09:54→22:14)
[2020-07-10] MEDS: DULoxetine HCL 30 MG CAPSULE.DR PO SCH (09:54)
[2020-07-10] MEDS: CEFEPIME 1 GM in SODIUM CHLORIDE 0.9% 50 ML IVPB SCH ×2 (10:07→22:15)
[2020-07-10] MEDS: SODIUM BICARBONATE TAB 650 MG TAB PO SCH (10:07)
--- NOTE | 2020-07-10 11:19 | P.PN ---
Subjective Patient is seen in follow-up for acute kidney injury on chronic any disease. Patient has chronic kidney disease stage IIIB with baseline creatinine in the range of 1.5-2 secondary to cardiorenal syndrome. Creatinine 3.17 as of yesterday. Diuretics are held. He is currently maintained on bicarb drip. Has high output from the ileostomy. Has a Sharpe catheter. Nonoliguric. Patient is not a reliable historian due to mental impairment. Vital signs are stable. General: The patient appeared well nourished and normally developed. HEENT: Head exam is unremarkable. Neck is without jugular venous distension. LUNGS: Breath sounds decreased. HEART: Rate and Rhythm are regular. ABDOMEN: Soft, nontender. EXTREMITITES: No edema. Objective - Vital Signs Vital signs: Vital Signs Temp 96.9 F L 07/10/20 09:00 Pulse 82 07/10/20 09:00 Resp 18 07/10/20 09:00 BP 112/57 07/10/20 09:00 Pulse Ox 95 07/10/20 09:00 Intake & Output 07/09/20 07/10/20 07/10/20 18:59 06:59 18:59 Intake Total 240 360 Output Total 2200 1525 500 Balance -1960 -1525 -140 Weight 87.5 kg Intake: Oral 240 360 Output: Gastric Drainage 500 Urine 500 275 Stool 1700 750 500 Other: Voiding Method Indwelling Catheter Indwelling Catheter Indwelling Catheter - Labs CBC & Chem 7: 07/09/20 07:39 07/09/20 07:39 Labs: Microbiology - Last 24 Hours (Table) 07/06/20 10:57 Stool Culture - Final Stool Assessment and Plan Plan: Assessment: 1. Acute kidney injury secondary to ATN secondary to hypovolemia. Creatinine 3.17 yesterday. 2. Metabolic acidosis secondary to acute kidney injury and GI losses. Maint ained on bicarb drip. 3. Hypovolemic hyponatremia. 4. Chronic kidney disease stage IIIB with baseline creatinine in the range of 1.5-2 secondary to cardiorenal syndrome. 5. History of sigmoid volvulus with colectomy and ileostomy. 6. Chronic diastolic CHF. 7. Chronic kidney disease mineral bone disease maintained on calcitriol. Plan: I will change IV fluids to D5W with 3 A of bicarb to be run at 75 mL an hour. Avoid nephrotoxins. Continue to monitor renal function and urine output. Morning labs pending.
[2020-07-10] MEDS ORDERED: VANCOMYCIN 1,500 MG in SODIUM CHLORIDE 0.9% 250 ML IVPB ONE (12:00)
--- NOTE | 2020-07-10 12:11 | P.PN ---
Subjective Progress Note Date: 07/10/20 Principal diagnosis: Coffee-ground emesis This is a 69-year-old male with multiple medical comorbidities including developmental delay who presented to the hospital for chest pain for which a STEMI was called. The patient had a cardiac catheterization showing normal vessels. He was recently seen at [facility] for nausea and vomiting, however no scopes were completed at that time. He was noted here to have epistaxis, then had further coffee-ground emesis. He is status post upper endoscopy. He has had no further episodes of coffee-ground emesis, stool is br own and loose in his ostomy bag. He continues with Protonix and sucralfate. He has had large amounts of output from the ostomy. Stool cultures have been ordered and negative to date. Imodium 4 mg has been added 4 times a day. He has some abdominal pain with palpation. Objective - Vital Signs Vital signs: Vital Signs Temp 99 F 07/10/20 04:00 Pulse 85 07/10/20 04:00 Resp 16 07/10/20 04:00 BP 112/70 07/10/20 04:00 Pulse Ox 94 L 07/10/20 04:00 Intake & Output 07/09/20 07/10/20 07/10/20 18:59 06:59 18:59 Intake Total 240 360 Output Total 2200 1525 500 Balance -1960 -1525 -140 Weight 87.5 kg Intake: Oral 240 360 Output: Gastric Drainage 500 Urine 500 275 Stool 1700 750 500 Other: Voiding Method Indwelling Catheter Indwelling Catheter - Exam General appearance: The patient is alert, oriented, appears in no acute distress. HET: Head is normocephalic and atraumatic. Conjunctiva pink. Sclera anicteric. Neck: Supple without lymphadenopathy. Abdomen: Soft, diffuse tenderness, nondistended with bowel sounds, ostomy with large amount of liquid brown output. No guarding or rigidity. Extremities: Normal skin color and turgor. No pedal edema Skin: No rashes, no jaundice Neurological: No focal deficits. Alert and oriented 3. - Labs CBC & Chem 7: 07/09/20 07:39 07/09/20 07:39 Labs: Microbiology - Last 24 Hours (Table) 07/06/20 10:57 Stool Culture - Final Stool Assessment and Plan (1) Nausea & vomiting Narrative/Plan: 69-year-old male presenting to the hospital for nausea and vomiting as well as abdominal pain and tenderness. Recently seen at [facility] where imaging did show distended stomach otherwise no acute findings. Hemoglobin has been stable however there were concerns of coffee-ground emesis in the setting of epistaxis. Unclear etiology, however given imaging findings of distention and persistent symptoms of nausea and vomiting plan will be to have the patient undergo EGD on 07/08/2020 for evaluation of the upper GI tract and to rule out peptic ulcer disease, gastritis, esophagitis or other etiology. Symptoms are improved Current Visit: Yes Status: Acute Code(s): R11.2 - NAUSEA WITH VOMITING, UNSPECIFIED SNOMED Code(s): 22379975 (2) Abdominal pain Current Visit: Yes Status: Acute Code(s): R10.9 - UNSPECIFIED ABDOMINAL PAIN SNOMED Code(s): 04245781 (3) Coffee ground emesis Narrative/Plan: He is status post upper endoscopy which showed only grade D esophagitis, mild gastritis, mild amount of retained food and debris in the stomach, small hiatal hernia, biopsies were taken. No further ground emesis. Current Visit: Yes Status: Acute Code(s): K92.0 - HEMATEMESIS SNOMED Code(s): 68668148 (4) Diarrhea Narrative/Plan: Patient having increased output from his ostomy. Stool studies ordered and negative. Continue Imodium 4 mg 4 times a day as needed. Current Visit: Yes Status: Acute Code(s): R19.7 - DIARRHEA, UNSPECIFIED SNOMED Code(s): 57640064 Plan: 1. Supportive care 2. Okay for diet as tolerated 3. Continue Protonix 40 mg twice daily 4. Continue antiemetic as needed for nausea 5. Stool studies ordered and negative, will change Imodium to 4mg QID 6. Patient is status post upper endoscopy 7. Continue other medical management per primary team Thank you for allowing us to participate in care of the patient, we will continue to follow Dr. Juan Jose Corcoran I agree with the dictator's note, documented as a scribe by Mariann Becker.
[2020-07-10 12:17] LABS: Magnesium 2.7 mg/dL (1.6-2.3); Potassium 3.8 mmol/L (3.5-5.1)
[2020-07-10] MEDS: DEXTROSE 5% IN WATER 1,000 ML with SODIUM BICARB (1 MEQ/ML) 150 ML IV SCH ×2 (13:07→22:16)
--- NOTE | 2020-07-10 14:32 | P.PN ---
Subjective Progress Note Date: 07/10/20 Principal diagnosis: hypoxia and GI bleeding No fevers, no overnight events reported. No further episodes of coffee-ground emesis. Objective - Vital Signs Vital signs: Vital Signs Temp 97.6 F 07/10/20 11:59 Pulse 78 07/10/20 11:59 Resp 18 07/10/20 11:59 BP 111/63 07/10/20 11:59 Pulse Ox 95 07/10/20 11:59 Intake & Output 07/09/20 07/10/20 07/10/20 18:59 06:59 18:59 Intake Total 240 840 Output Total 2200 1525 1500 Balance -1960 -1525 -660 Weight 87.5 kg Intake: Oral 240 840 Output: Gastric Drainage 500 Urine 500 275 150 Stool 2430 230 8139 Other: Voiding Method Indwelling Catheter Indwelling Catheter Indwelling Catheter - Exam On physical examination, patient appears comfortable in no apparent distress. HEAD: Normocephalic, atraumatic. EYES: No scleral icterus. No conjunctival injection. MOUTH: No lesions, tongue midline. NECK: Trachea midline, no gross abnormalities. CHEST: Clear to auscultation with no wheezing or rhonchi appreciated. ABDOMEN: Soft, obese, colostomy appears clean/I/intact with watery output. Bowel sounds are positive. No organomegaly. No guarding or rigidity. EXTREMITIES: No pedal edema. SKIN: No rashes, no jaundice. NEUROLOGIC: Alert but not oriented. - Labs CBC & Chem 7: 07/09/20 07:39 07/10/20 11:40 Labs: Abnormal Lab Results - Last 24 Hours (Table) 07/10/20 Range/Units 11:40 Sodium 125 L (137-145) mmol/L Chloride 89 L (98-107) mmol/L Carbon Dioxide 13 L (22-30) mmol/L BUN 134 H* (9-20) mg/dL Creatinine 3.56 H (0.66-1.25) mg/dL Glucose 135 H (74-99) mg/dL Magnesium 2.7 H (1.6-2.3) mg/dL Microbiology - Last 24 Hours (Table) 07/06/20 10:57 Stool Culture - Final Stool Assessment and Plan Plan: Abdominal pain and coffee-ground emesis, diarrhea tested negative for C. diff -Resume regular diet -GI consult, egd showed gastritis and esophagitis, no apparant source of bleeding, continue PPI. Epistaxis, controlled -Controlled after pressure for more than 10 minutes -No recurrence Acute inferior STEMI status post cardiac catheterization revealing normal coronaries. Likely secondary to coronary spasm. Being followed by cardiology, continue Cardizem Hold lasix for now due to LUIS ALBERTO. Oxygenation ok. Worsening LUIS ALBERTO on chronic kidney disease, currently with severe metabolic acidosis -Continue to hold lasix. -Seen by nephrology, started on bicarbonate drip , follow labs closely -Avoid nephrotoxins -Renaly dose medications Bipolar disorder Seizure disorder History of cerebral palsy and cognitive impairment -Continue Depakote -Ativan when necessary -Continue duloxetine -Continue Sinemet Gout -Continue allopurinol Hypertension -Continue amlodipine -Continue Diltiazem Hypothyroidism -Continue levothyroxine DVT prophylaxis is on hold due to suspected bleed Patient is a full code
--- NOTE | 2020-07-10 16:37 | XR ---
EXAMINATION TYPE: XR abdomen 2V DATE OF EXAM: 07/10/2020 COMPARISON: None HISTORY: Abdomen pain TECHNIQUE: Abdomen is examined in the upright supine views. FINDINGS: The stomach is distended with air. Air is present throughout the colon. No suspicious small bowel differential air-fluid levels are evident. No mass effect is evident. Psoas margins are not visualized. Organomegaly is not appreciated. Scolios is within the lumbar spine. IMPRESSION: 1. Distended stomach with air and prominent air-filled loops of colon.
[2020-07-10 19:12] LABS: Prothrombin Time 10.3 sec (9.0-12.0)
[2020-07-10 19:19] LABS: Partial Thromboplastin Time 20.8 sec (22.0-30.0)
[2020-07-10 20:01] LABS: HCT 36.8 % (39.0-53.0); HGB 12.5 gm/dL (13.0-17.5); MCH 32.9 pg (25.0-35.0); MCHC 33.9 g/dL (31.0-37.0); MCV 96.9 fL (80.0-100.0); Platelet Count 223 k/uL (150-450); RBC 3.79 m/uL (4.30-5.90); RDW 15.3 % (11.5-15.5); WBC 9.6 k/uL (3.8-10.6)
[2020-07-10] MEDS: DULoxetine HCL 60 MG CAPSULE.DR PO SCH (22:14)
[2020-07-10] MEDS: ARIPiprazole 15 MG TAB PO SCH (22:14)
[2020-07-11 01:34] LABS: HCT 33.3 % (39.0-53.0); HGB 11.9 gm/dL (13.0-17.5); MCH 33.4 pg (25.0-35.0); MCHC 35.6 g/dL (31.0-37.0); MCV 93.7 fL (80.0-100.0); Mean Platelet Volume 9.8; Platelet Count 226 k/uL (150-450); RBC 3.56 m/uL (4.30-5.90); RDW 14.4 % (11.5-15.5); WBC 12.5 k/uL (3.8-10.6)
[2020-07-11 03:28] LABS: Band Neutrophils % 16 %; Eosinophils # (M) 0.13 k/uL (0-0.7); Lymphocytes # (M) 3.75 k/uL (1.0-4.8); Metamyelocytes # (M) 0.38 k/uL (0); Metamyelocytes % 3 %; Monocytes # (M) 1.75 k/uL (0-1.0); Myelocytes # (M) 0.13 k/uL (0); Myelocytes % 1 %; Neutrophils % (M) 37 %; Nucleated Red Blood Cells 0 /100 WBC (0-0); Total Cells Counted 200
[2020-07-11 03:29] LABS: Anisocytosis (M) Present; Polychromasia Present
[2020-07-11] MEDS: DEXTROSE 5% IN WATER 1,000 ML with SODIUM BICARB (1 MEQ/ML) 150 ML IV SCH (05:42)
[2020-07-11] MEDS: SUCRALFATE 1 GM TAB PO SCH ×4 (06:32→21:59)
[2020-07-11] MEDS: LEVOTHYROXINE 75 MCG TAB PO SCH (06:32)
[2020-07-11] MEDS: PANTOPRAZOLE 40 MG TABLET PO SCH ×2 (06:32→17:49)
[2020-07-11] MEDS ORDERED: DESMOPRESSIN ACETATE 26 MCG in SODIUM CHLORIDE 0.9% 50 ML IVPB ONE (07:47)
[2020-07-11 07:48] LABS: HCT 34.3 % (39.0-53.0); MCH 33.1 pg (25.0-35.0); MCHC 35.1 g/dL (31.0-37.0); MCV 94.2 fL (80.0-100.0); Mean Platelet Volume 10.2; Platelet Count 211 k/uL (150-450); RBC 3.64 m/uL (4.30-5.90); RDW 14.5 % (11.5-15.5); WBC 9.9 k/uL (3.8-10.6)
[2020-07-11 08:18] LABS: Calcium 8.3 mg/dL (8.4-10.2); Magnesium 2.6 mg/dL (1.6-2.3); Potassium 3.2 mmol/L (3.5-5.1)
[2020-07-11 09:19] LABS: Vancomycin,Random 23.7 ug/mL
[2020-07-11] MEDS ORDERED: POTASSIUM CHLORIDE ER 20 MEQ TAB.ER PO STA ×2 (09:25→19:01)
[2020-07-11] MEDS: CEFEPIME 1 GM in SODIUM CHLORIDE 0.9% 50 ML IVPB SCH (10:11)
[2020-07-11] MEDS: LOPERAMIDE 2 MG CAP PO PRN ×2 (10:11→22:01)
[2020-07-11] MEDS: DIVALPROEX 500 MG TABLET.DR PO SCH ×4 (10:12→21:58)
[2020-07-11] MEDS: ATORVASTATIN 20 MG TAB PO SCH (10:12)
[2020-07-11] MEDS: DULoxetine HCL 30 MG CAPSULE.DR PO SCH (10:12)
[2020-07-11] MEDS: CARBIDOPA-LEVODOPA 25-100 MG 1 EACH TAB PO SCH ×2 (10:12→21:58)
[2020-07-11] MEDS: DILTIAZEM CD 120 MG CAP.ER.24H PO SCH (10:12)
[2020-07-11] MEDS: allopurinoL 100 MG TAB PO SCH ×4 (10:13→21:59)
[2020-07-11] MEDS: SODIUM BICARBONATE TAB 650 MG TAB PO SCH ×3 (10:16→21:59)
--- NOTE | 2020-07-11 10:31 | P.PN ---
Subjective Patient is seen in follow-up for acute kidney injury on chronic any disease. Patient has chronic kidney disease stage IIIB with baseline creatinine in the range of 1.5-2 secondary to cardiorenal syndrome. Creatinine 3.61 today. Diuretics are held. He is currently maintained on bicarb drip. Continues to have high output from the ileostomy. Has a Sharpe catheter. Nonoliguric. Patient is not a reliable historian due to mental impairment. He also had a nosebleed yesterday. Now resolved. Vital signs are stable. General: The patient appeared well nourished and normally developed. HEENT: Head exam is unremarkable. Neck is without jugular venous distension. LUNGS: Breath sounds decreased. HEART: Rate and Rhythm are regular. ABDOMEN: Soft, nontender. Ileostomy noted. EXTREMITITES: No edema. Objective - Vital Signs Vital signs: Vital Signs Temp 97.6 F 07/11/20 04:00 Pulse 70 07/11/20 04:00 Resp 16 07/11/20 04:00 BP 108/58 07/11/20 04:00 Pulse Ox 93 L 07/11/20 04:00 Intake & Output 07/10/20 07/11/20 07/11/20 18:59 06:59 18:59 Intake Total 840 480 Output Total 3000 800 Balance -2160 -320 Weight 98 kg Intake: Oral 840 480 Output: Urine 350 100 Stool 2650 700 Other: Voiding Method Indwelling Catheter Indwelling Catheter - Labs CBC & Chem 7: 07/11/20 07:24 07/11/20 07:24 Labs: Abnormal Lab Results - Last 24 Hours (Table) 07/10/20 07/10/20 07/10/20 Range/Units 11:40 18:34 18:34 WBC (3.8-10.6) k/uL RBC 3.79 L (4.30-5.90) m/uL Hgb 12.5 L (13.0-17.5) gm/dL Hct 36.8 L (39.0-53.0) % Monocytes # (Manual) (0-1.0) k/uL Metamyelocytes # (Man) (0) k/uL Myelocytes # (Manual) (0) k/uL APTT 20.8 L (22.0-30.0) sec Sodium 125 L (137-145) mmol/L Potassium (3.5-5.1) mmol/L Chloride 89 L (98-107) mmol/L Carbon Dioxide 13 L (22-30) mmol/L BUN 134 H* (9-20) mg/dL Creatinine 3.56 H (0.66-1.25) mg/dL Glucose 135 H (74-99) mg/dL Calcium (8.4-10.2) mg/dL Magnesium 2.7 H (1.6-2.3) mg/dL 07/11/20 07/11/20 07/11/20 Range/Units 00:56 07:24 07:24 WBC 12.5 H (3.8-10.6) k/uL RBC 3.56 L 3.64 L (4.30-5.90) m/uL Hgb 11.9 L 12.0 L (13.0-17.5) gm/dL Hct 33.3 L 34.3 L (39.0-53.0) % Monocytes # (Manual) 1.75 H (0-1.0) k/uL Metamyelocytes # (Man) 0.38 H (0) k/uL Myelocytes # (Manual) 0.13 H (0) k/uL APTT (22.0-30.0) sec Sodium 123 L (137-145) mmol/L Potassium 3.2 L (3.5-5.1) mmol/L Chloride 79 L (98-107) mmol/L Carbon Dioxide (22-30) mmol/L BUN 144 H* (9-20) mg/dL Creatinine 3.61 H (0.66-1.25) mg/dL Glucose 108 H (74-99) mg/dL Calcium 8.3 L (8.4-10.2) mg/dL Magnesium 2.6 H (1.6-2.3) mg/dL Microbiology - Last 24 Hours (Table) 07/06/20 10:57 Stool Culture - Final Stool Assessment and Plan Plan: Assessment: 1. Acute kidney injury secondary to ATN secondary to hypovolemia. Creatinine 3.61 today. 2. Metabolic acidosis secondary to acute kidney injury and GI losses. Maintained on bicarb drip. Better. 3. Hyponatremia secondary to acute kidney injury. Hypovolemic. 4. Chronic kidney disease stage IIIB with baseline creatinine in the range of 1.5-2 secondary to cardiorenal syndrome. 5. History of sigmoid volvulus with colectomy and ileostomy. 6. Chronic diastolic CHF. 7. Chronic kidney disease mineral bone disease maintained on calcitriol. 8. Hypokalemia from poor intake. 9. Elevated BUN secondary to prerenal state. No evidence of GI bleed. Not on steroids. 10. High output from the ileostomy. On Imodium. Consider Questran. Plan: Stop bicarb drip. Start normal saline at 150 mL an hour. Increase dose of oral bicarbonate. Replace potassium. Avoid nephrotoxins. Continue to monitor renal function and urine output. Repeat BMP this evening. Continue to assess daily for renal replacement therapy. Also receiving a dose of IV DDAVP today. Maintain fluid restriction. Encouraged oral intake. Case discussed with the primary team.
--- NOTE | 2020-07-11 10:53 | P.PN ---
Subjective Progress Note Date: 07/11/20 Principal diagnosis: Coffee-ground emesis This is a 69-year-old male with multiple medical comorbidities including developmental delay who presented to the hospital for chest pain for which a STEMI was called. The patient had a cardiac catheterization showing normal vessels. He was recently seen at [facility] for nausea and vomiting, however no scopes were completed at that time. He was noted here to have epistaxis, then had further coffee-ground emesis. He is status post upper endoscopy. He has had no further episodes of coffee-ground emesis, stool is br own and loose in his ostomy bag. He continues with Protonix and sucralfate. He has had large amounts of output from the ostomy. Stool cultures have been ordered and negative to date. Imodium 4 mg has been added 4 times a day. The patient continues to have abdominal distention and abdominal pain. Still having large amount of loose stool output, however decreasing. Abdominal x-ray shows stomach is distended with air. Air is present throughout the colon. No suspicious small bowel differential air-fluid levels are evident. Objective - Vital Signs Vital signs: Vital Signs Temp 97.6 F 07/11/20 04:00 Pulse 70 07/11/20 04:00 Resp 16 07/11/20 04:00 BP 108/58 07/11/20 04:00 Pulse Ox 93 L 07/11/20 04:00 Intake & Output 07/10/20 07/11/20 07/11/20 18:59 06:59 18:59 Intake Total 840 480 Output Total 3000 800 Balance -2160 -320 Weight 98 kg Intake: Oral 840 480 Output: Urine 350 100 Stool 2650 700 Other: Voiding Method Indwelling Catheter Indwelling Catheter - Exam General appearance: The patient is alert, oriented, appears in no acute distress. HET: Head is normocephalic and atraumatic. Conjunctiva pink. Sclera anicteric. Neck: Supple without lymphadenopathy. Abdomen: Soft, diffuse tenderness, mildly distended with bowel sounds, ostomy with large amount of liquid brown output. No guarding or rigidity. Extremities: Normal skin color and turgor. No pedal edema Skin: No rashes, no jaundice Neurological: No focal deficits. Alert and oriented 3. - Labs CBC & Chem 7: 07/11/20 07:24 07/11/20 07:24 Labs: Abnormal Lab Results - Last 24 Hours (Table) 07/10/20 07/10/20 07/10/20 Range/Units 11:40 18:34 18:34 WBC (3.8-10.6) k/uL RBC 3.79 L (4.30-5.90) m/uL Hgb 12.5 L (13.0-17.5) gm/dL Hct 36.8 L (39.0-53.0) % Monocytes # (Manual) (0-1.0) k/uL Metamyelocytes # (Man) (0) k/uL Myelocytes # (Manual) (0) k/uL APTT 20.8 L (22.0-30.0) sec Sodium 125 L (137-145) mmol/L Potassium (3.5-5.1) mmol/L Chloride 89 L (98-107) mmol/L Carbon Dioxide 13 L (22-30) mmol/L BUN 134 H* (9-20) mg/dL Creatinine 3.56 H (0.66-1.25) mg/dL Glucose 135 H (74-99) mg/dL Osmolality (280-301) mosm/kg Calcium (8.4-10.2) mg/dL Magnesium 2.7 H (1.6-2.3) mg/dL 07/11/20 07/11/20 07/11/20 Range/Units 00:56 07:24 07:24 WBC 12.5 H (3.8-10.6) k/uL RBC 3.56 L 3.64 L (4.30-5.90) m/uL Hgb 11.9 L 12.0 L (13.0-17.5) gm/dL Hct 33.3 L 34.3 L (39.0-53.0) % Monocytes # (Manual) 1.75 H (0-1.0) k/uL Metamyelocytes # (Man) 0.38 H (0) k/uL Myelocytes # (Manual) 0.13 H (0) k/uL APTT (22.0-30.0) sec Sodium 123 L (137-145) mmol/L Potassium 3.2 L (3.5-5.1) mmol/L Chloride 79 L (98-107) mmol/L Carbon Dioxide (22-30) mmol/L BUN 144 H* (9-20) mg/dL Creatinine 3.61 H (0.66-1.25) mg/dL Glucose 108 H (74-99) mg/dL Osmolality (280-301) mosm/kg Calcium 8.3 L (8.4-10.2) mg/dL Magnesium 2.6 H (1.6-2.3) mg/dL 07/11/20 Range/Units 07:24 WBC (3.8-10.6) k/uL RBC (4.30-5.90) m/uL Hgb (13.0-17.5) gm/dL Hct (39.0-53.0) % Monocytes # (Manual) (0-1.0) k/uL Metamyelocytes # (Man) (0) k/uL Myelocytes # (Manual) (0) k/uL APTT (22.0-30.0) sec Sodium (137-145) mmol/L Potassium (3.5-5.1) mmol/L Chloride (98-107) mmol/L Carbon Dioxide (22-30) mmol/L BUN (9-20) mg/dL Creatinine (0.66-1.25) mg/dL Glucose (74-99) mg/dL Osmolality 305 H (280-301) mosm/kg Calcium (8.4-10.2) mg/dL Magnesium (1.6-2.3) mg/dL Microbiology - Last 24 Hours (Table) 07/06/20 10:57 Stool Culture - Final Stool Assessment and Plan (1) Nausea & vomiting Narrative/Plan: 69-year-old male presenting to the hospital for nausea and vomiting as well as abdominal pain and tenderness. Recently seen at [facility] where imaging did show distended stomach otherwise no acute findings. Hemoglobin has been stable however there were concerns of coffee-ground emesis in the setting of epistaxis. Unclear etiology, however given imaging findings of distention and persistent symptoms of nausea and vomiting plan will be to have the patient undergo EGD on 07/08/2020 for evaluation of the upper GI tract and to rule out peptic ulcer disease, gastritis, esophagitis or other etiology. Symptoms are improved Current Visit: Yes Status: Acute Code(s): R11.2 - NAUSEA WITH VOMITING, UNSPECIFIED SNOMED Code(s): 96175576 (2) Abdominal pain Narrative/Plan: X-ray obtained showing distended stomach with air and prominent air-filled loops of colon. Surgical services consulted. Current Visit: Yes Status: Acute Code(s): R10.9 - UNSPECIFIED ABDOMINAL PAIN SNOMED Code(s): 99428819 (3) Coffee ground emesis Narrative/Plan: He is status post upper endoscopy which showed only grade D esophagitis, mild gastritis, mild amount of retained food and debris in the stomach, small hiatal hernia, biopsies were taken. No further coffee ground emesis. Current Visit: Yes Status: Acute Code(s): K92.0 - HEMATEMESIS SNOMED Code(s): 08144381 (4) Diarrhea Narrative/Plan: Patient having increased output from his ostomy. Stool studies ordered and negative. Continue Imodium 4 mg 4 times a day as needed. Current Visit: Yes Status: Acute Code(s): R19.7 - DIARRHEA, UNSPECIFIED SNOMED Code(s): 62431427 Plan: 1. Supportive care 2. Can continue clear liquid diet with moderation 3. Repeat abdominal x-ray in a.m. 4. May add Questran 5. Continue Protonix 40 mg twice daily 6. Continue antiemetic as needed for nausea 7. Continue Imodium to 4mg QID prn 8. Patient is status post upper endoscopy 9. Surgical consult ordered Thank you for allowing us to participate in care of the patient, we will continue to follow Dr. Juan Jose Corcoran I agree with the dictator's note, documented as a scribe by Mariann Becker.
--- NOTE | 2020-07-11 11:34 | XR ---
EXAMINATION TYPE: XR chest 1V DATE OF EXAM: 07/11/2020 HISTORY: Shortness of breath. COMPARISON: 07/08/2020 TECHNIQUE: Single view of the chest is submitted. FINDINGS: Demonstrated are scattered senescent parenchymal change. Basilar atelectasis or infiltrates are noted. The heart is stable. Hilar and mediastinal structures are within normal limits. Degenerative changes are seen of the dorsal spine. IMPRESSION: 1. Basilar atelectasis or infiltrates are noted.
[2020-07-11] MEDS: SODIUM CHLORIDE 0.9% 1,000 ML IV SCH ×3 (11:45→21:59)
--- NOTE | 2020-07-11 13:18 | P.PN ---
Subjective Progress Note Date: 07/11/20 Principal diagnosis: hypoxia and GI bleeding Patient is still having a lot of output from his ostomy tube, he is also still having episodes of epistaxis which has been hard to control according to the nursing staff. Objective - Vital Signs Vital signs: Vital Signs Temp 97.1 F L 07/11/20 09:30 Pulse 68 07/11/20 09:30 Resp 16 07/11/20 09:30 BP 115/52 07/11/20 09:30 Pulse Ox 93 L 07/11/20 09:30 Intake & Output 07/10/20 07/11/20 07/11/20 18:59 06:59 18:59 Intake Total 840 480 0 Output Total 3000 800 Balance -2160 -320 0 Weight 98 kg 98 kg Intake: Oral 840 480 0 Output: Urine 350 100 Stool 2650 700 Other: Voiding Method Indwelling Catheter Indwelling Catheter Indwelling Catheter - Exam On physical examination, patient appears comfortable in no apparent distress. HEAD: Normocephalic, atraumatic. EYES: No scleral icterus. No conjunctival injection. MOUTH: No lesions, tongue midline. NECK: Trachea midline, no gross abnormalities. CHEST: Clear to auscultation with no wheezing or rhonchi appreciated. ABDOMEN: Soft, obese, colostomy appears clean/I/intact with watery output. Bowel sounds are positive. No organomegaly. No guarding or rigidity. EXTREMITIES: No pedal edema. SKIN: No rashes, no jaundice. NEUROLOGIC: Alert but not oriented. - Labs CBC & Chem 7: 07/11/20 07:24 07/11/20 07:24 Labs: Abnormal Lab Results - Last 24 Hours (Table) 07/10/20 07/10/20 07/11/20 Range/Units 18:34 18:34 00:56 WBC 12.5 H (3.8-10.6) k/uL RBC 3.79 L 3.56 L (4.30-5.90) m/uL Hgb 12.5 L 11.9 L (13.0-17.5) gm/dL Hct 36.8 L 33.3 L (39.0-53.0) % Monocytes # (Manual) 1.75 H (0-1.0) k/uL Metamyelocytes # (Man) 0.38 H (0) k/uL Myelocytes # (Manual) 0.13 H (0) k/uL APTT 20.8 L (22.0-30.0) sec Sodium (137-145) mmol/L Potassium (3.5-5.1) mmol/L Chloride (98-107) mmol/L BUN (9-20) mg/dL Creatinine (0.66-1.25) mg/dL Glucose (74-99) mg/dL Osmolality (280-301) mosm/kg Calcium (8.4-10.2) mg/dL Magnesium (1.6-2.3) mg/dL 07/11/20 07/11/20 07/11/20 Range/Units 07:24 07:24 07:24 WBC (3.8-10.6) k/uL RBC 3.64 L (4.30-5.90) m/uL Hgb 12.0 L (13.0-17.5) gm/dL Hct 34.3 L (39.0-53.0) % Monocytes # (Manual) (0-1.0) k/uL Metamyelocytes # (Man) (0) k/uL Myelocytes # (Manual) (0) k/uL APTT (22.0-30.0) sec Sodium 123 L (137-145) mmol/L Potassium 3.2 L (3.5-5.1) mmol/L Chloride 79 L (98-107) mmol/L BUN 144 H* (9-20) mg/dL Creatinine 3.61 H (0.66-1.25) mg/dL Glucose 108 H (74-99) mg/dL Osmolality 305 H (280-301) mosm/kg Calcium 8.3 L (8.4-10.2) mg/dL Magnesium 2.6 H (1.6-2.3) mg/dL Microbiology - Last 24 Hours (Table) 07/06/20 10:57 Stool Culture - Final Stool Assessment and Plan Plan: Abdominal pain and coffee-ground emesis, diarrhea tested negative for C. diff, egd showed gastritis and esophagitis, no apparant source of bleeding -Resume regular diet -Continue PPI. Continue Imodium, start cholestyramine. -Discussed with GI Epistaxis, controlled -Controlled after pressure for more than 10 minutes -No ENT available -Discussed with tool design drafter, will give 1 dose of DDAVP Acute inferior STEMI status post cardiac catheterization revealing normal coronaries. Likely secondary to coronary spasm. Being followed by cardiology, continue Cardizem Hold lasix for now due to LUIS ALBERTO. Oxygenation ok. Worsening LUIS ALBERTO on chronic kidney disease, currently with severe metabolic acidosis, Likely secondary to dehydration due to diarrhea. -Discussed with nephrology, IV fluids per nephrology -May require dialysis if renal function doesn't improve -Recheck kidney function this afternoon -Avoid nephrotoxins -Renaly dose medications Bipolar disorder Seizure disorder History of cerebral palsy and cognitive impairment -Continue Depakote -Ativan when necessary -Continue duloxetine -Continue Sinemet Gout -Continue allopurinol Hypertension -Continue amlodipine -Continue Diltiazem Hypothyroidism -Continue levothyroxine DVT prophylaxis is on hold due to suspected bleed Patient is a full code
[2020-07-11] MEDS: CHOLESTYRAMINE (WITH SUGAR) 4 GM PACKET PO SCH (13:30)
--- NOTE | 2020-07-11 15:24 | P.GSCN ---
History of Present Illness Consult date: 07/11/20 History of present illness: CHIEF COMPLAINT: Abdominal pain HISTORY OF PRESENT ILLNESS: This is a 69-year-old male with a known history of developmental delay, cerebral palsy, bipolar, chronic kidney disease, seizure disorder. 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 Patient presented to the emergency room with complaints of abdominal pain nausea and vomiting. There were initial concerns for an STEMI. He has been seen evaluated by cardiology underwent heart catheterization which was had shown normal arteries. Patient has had epistaxis as well as coffee ground emesis. He underwent EGD with GI service that had shown LA grade D esophagitis, mild gastritis, moderate amount of retained food debris in the stomach, small hiatal hernia and biopsies were taken. Patient has had further abdominal distention and increased and his ileostomy output. Abdominal x-ray completed and showing distended stomach with air and prominent air-filled loops of colon. And therefore surgical consult was placed regarding distended stomach with air and increase in ileostomy output. Patient is a poor historian. Most of history was obtained from chart. Patient does complain of pain when stomach is palpated. Per nursing patient did have a nosebleed earlier this morning that has now stopped. However, they were not able to insert NG tube due to nosebleed. PAST MEDICAL HISTORY: See list. PAST SURGICAL HISTORY: See list. MEDICATIONS: See list. ALLERGIES: See list. SOCIAL HISTORY: No illicit drug use. REVIEW OF SYSTEMS: CONSTITUTIONAL: Denies fever or chills. HEENT: Denies blurred vision, vision changes, or eye pain. Denies hemoptysis ENDOCRINE: Denies heat or cold intolerance. CARDIOVASCULAR: Denies chest pain or pressure. RESPIRATORY: No shortness of breath. GASTROINTESTINAL: Denies abdominal pain. Denies nausea or vomiting. NEURO: Denies history of seizures. PSYCH: No depression or suicidal ideation HEMATOLOGIC: Denies bleeding disorders. LYMPHATIC: The patient denies any lumps and bumps around the neck. GENITOURINARY: Denies any blood in urine or increased urinary frequency. MUSCULOSKELETAL: Denies myalgias. Denies joint swelling. Denies decreased range of motion beyond patients baseline. SKIN: Denies pruitis. Denies rash. PHYSICAL EXAM: VITAL SIGNS: Reviewed GENERAL: Well-developed in no acute distress. HEENT: No sclera icterus. Extraocular movements grossly intact. Moist buccal mucosa. Head is atraumatic, normocephalic. Hears conversational speech. No nasal draina ge. NECK: Supple without lymphadenopathy. CHEST: Non-labored respirations and equal bilateral excursions. CARDIOVASCULAR: Palpable 2+ radial pulses. ABDOMEN: Soft. Distended with diffuse tenderness ileostomy brown stool. MUSCULOSKELETAL: No clubbing or cyanosis. NEUROLOGIC: No focal or lateralizing signs. Cranial nerves II through XII grossly intact. PSYCH: Appropriate affect. Alert SKIN: Well perfused. Good skin turgor. LABORATORY DATA: WBC 9.9 Hgb 12 platelets 211 sodium is 123 potassium is 3.2 creatinine 3.6 IMAGING: Abdominal x-ray completed and showing distended stomach with air and prominent air-filled loops of colon. ASSESSMENT: 1. Abdominal distention and pain 2. Distended stomach with air and prominent air-filled loops of colon noted on abdominal x-ray 3. High ileostomy output 4. Coffee-ground emesis status post EGD by GI service which showed LA grade D esophagitis, mild gastritis, moderate amount of retained food debris in the stomach, small hiatal hernia 5. Epistaxis 6. Acute inferior ST [place] status post cardiac catheterization revealing normal coronary arteries 7. Acute kidney injury followed by nephrology 8. Chronic kidney disease 9. Dehydration 10. Bipolar disorder 11. Cerebral palsy with cognitive impairment 12. Hypertension 13. Hypothyroidism 14. 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 Signing provider agrees with the documented findings, assessment, and plan of care. Past Medical History Past Medical History: Coronary Artery Disease (CAD), Dementia, GERD/Reflux, Hypertension, Neurologic Disorder, Prostate Disorder, Renal Disease, Thyroid Disorder Additional Past Medical History / Comment(s): prostate cancer, epilepsy, chf, cerebral palsy History of Any Multi-Drug Resistant Organisms: None Reported Additional Past Surgical History / Comment(s): ileostomy Past Anesthesia/Blood Transfusion Reactions: No Reported Reaction Smoking Status: Never smoker Past Alcohol Use History: None Reported Past Drug Use History: None Reported Medications and Allergies Home Medications Medication Instructions Recorded Confirmed Type Cholecalciferol [Vitamin D3] 2,000 unit PO Q48H 01/09/16 07/05/20 History DULoxetine HCL [Cymbalta] 60 mg PO HS 01/09/16 07/05/20 History Divalproex [Depakote] 500 mg PO QID 01/09/16 07/05/20 History Furosemide [Lasix] 40 mg PO DAILY 01/09/16 07/05/20 History LORazepam [Ativan] 0.5 mg PO TID 01/09/16 07/05/20 History LORazepam [Ativan] 1 mg PO DIRECTED PRN 01/09/16 07/05/20 History Levothyroxine Sodium [Synthroid] 75 mcg PO DAILY 01/09/16 07/05/20 History Loperamide [Imodium] 2 mg PO BID 01/09/16 07/05/20 History Psyllium Husk 100% [Metamucil] 12 gm PO TID 01/09/16 07/05/20 History Simvastatin [Zocor] 20 mg PO HS 01/09/16 07/05/20 History allopurinoL [Zyloprim] 100 mg PO TID 01/09/16 07/05/20 History calcitrioL [Rocaltrol] 0.25 mcg PO TU 01/09/16 07/05/20 History ARIPiprazole [Abilify] 30 mg PO HS 07/05/20 07/05/20 History Acetaminophen Tab [Tylenol Tab] 500 - 1,000 mg PO Q6HR PRN 07/05/20 07/05/20 History Carbidopa-Levodopa 25-100 mg 1 tab PO BID 07/05/20 07/05/20 History [Sinemet 25-100] DULoxetine HCL [Cymbalta] 30 mg PO DAILY 07/05/20 07/05/20 History Denta Paste 1 applic PO BID 07/05/20 07/05/20 History Magnesium Oxide 800 mg PO TID 07/05/20 07/05/20 History Mupirocin 2% Oint [Bactroban 2% 1 applic TOPICAL BID PRN 07/05/20 07/05/20 History Oint] Nystatin 100,000 Unit/gm Oint 1 applic TOPICAL BID PRN 07/05/20 07/05/20 History [Mycostatin Oint] Omeprazole 40 mg PO DAILY 07/05/20 07/05/20 History Simethicone 180mg 180 mg PO BID 07/05/20 07/05/20 History Sodium Bicarbonate Tab 650 mg PO DAILY 07/05/20 07/05/20 History amLODIPine [Norvasc] 2.5 mg PO HS 07/05/20 07/05/20 History guaiFENesin SYRUP 100MG/5ML 1 dose PO Q4H PRN 07/05/20 07/05/20 History [Robitussin] Allergies Allergy/AdvReac Type Severity Reaction Status Date / Time lamotrigine Allergy Unknown Verified 07/05/20 13:42 NSAIDS (Non-Steroidal Allergy Unknown Verified 07/05/20 13:42 Anti-Inflamma Penicillins Allergy Rash/Hives Verified 07/05/20 13:42 Surgical - Exam Vital Signs Temp Pulse Resp BP Pulse Ox 97.6 F 105 H 18 138/89 98 07/05/20 11:38 07/05/20 11:38 07/05/20 11:38 07/05/20 11:38 07/05/20 11:38 Results - Labs 07/11/20 07:24 07/11/20 07:24 Abnormal Lab Results - Last 24 Hours (Table) 07/10/20 07/10/20 07/11/20 Range/Units 18:34 18:34 00:56 WBC 12.5 H (3.8-10.6) k/uL RBC 3.79 L 3.56 L (4.30-5.90) m/uL Hgb 12.5 L 11.9 L (13.0-17.5) gm/dL Hct 36.8 L 33.3 L (39.0-53.0) % Monocytes # (Manual) 1.75 H (0-1.0) k/uL Metamyelocytes # (Man) 0.38 H (0) k/uL Myelocytes # (Manual) 0.13 H (0) k/uL APTT 20.8 L (22.0-30.0) sec Sodium (137-145) mmol/L Potassium (3.5-5.1) mmol/L Chloride (98-107) mmol/L BUN (9-20) mg/dL Creatinine (0.66-1.25) mg/dL Glucose (74-99) mg/dL Osmolality (280-301) mosm/kg Calcium (8.4-10.2) mg/dL Magnesium (1.6-2.3) mg/dL 07/11/20 07/11/20 07/11/20 Range/Units 07:24 07:24 07:24 WBC (3.8-10.6) k/uL RBC 3.64 L (4.30-5.90) m/uL Hgb 12.0 L (13.0-17.5) gm/dL Hct 34.3 L (39.0-53.0) % Monocytes # (Manual) (0-1.0) k/uL Metamyelocytes # (Man) (0) k/uL Myelocytes # (Manual) (0) k/uL APTT (22.0-30.0) sec Sodium 123 L (137-145) mmol/L Potassium 3.2 L (3.5-5.1) mmol/L Chloride 79 L (98-107) mmol/L BUN 144 H* (9-20) mg/dL Creatinine 3.61 H (0.66-1.25) mg/dL Glucose 108 H (74-99) mg/dL Osmolality 305 H (280-301) mosm/kg Calcium 8.3 L (8.4-10.2) mg/dL Magnesium 2.6 H (1.6-2.3) mg/dL Microbiology - Last 24 Hours (Table) 07/06/20 10:57 Stool Culture - Final Stool Diabetes panel 07/11/20 Range/Units 07:24 Sodium 123 L (137-145) mmol/L Potassium 3.2 L (3.5-5.1) mmol/L Chloride 79 L (98-107) mmol/L Carbon Dioxide 24 (22-30) mmol/L BUN 144 H* (9-20) mg/dL Creatinine 3.61 H (0.66-1.25) mg/dL Glucose 108 H (74-99) mg/dL Calcium 8.3 L (8.4-10.2) mg/dL Calcium panel 07/11/20 Range/Units 07:24 Calcium 8.3 L (8.4-10.2) mg/dL Pituitary panel 07/11/20 Range/Units 07:24 Sodium 123 L (137-145) mmol/L Potassium 3.2 L (3.5-5.1) mmol/L Chloride 79 L (98-107) mmol/L Carbon Dioxide 24 (22-30) mmol/L BUN 144 H* (9-20) mg/dL Creatinine 3.61 H (0.66-1.25) mg/dL Glucose 108 H (74-99) mg/dL Calcium 8.3 L (8.4-10.2) mg/dL Adrenal panel 07/11/20 Range/Units 07:24 Sodium 123 L (137-145) mmol/L Potassium 3.2 L (3.5-5.1) mmol/L Chloride 79 L (98-107) mmol/L Carbon Dioxide 24 (22-30) mmol/L BUN 144 H* (9-20) mg/dL Creatinine 3.61 H (0.66-1.25) mg/dL Glucose 108 H (74-99) mg/dL Calcium 8.3 L (8.4-10.2) mg/dL
[2020-07-11] MEDS: IOPAMIDOL CONTRAST (ORAL USE) VIAL PO PRN ×2 (15:50→16:30)
--- NOTE | 2020-07-11 17:38 | CT ---
EXAMINATION TYPE: CT abdomen pelvis wo con DATE OF EXAM: 07/11/2020 COMPARISON: None HISTORY: abdominal distention and pain CT DLP: 996.3 mGycm Automated exposure control for dose reduction was used. There is some infiltrate and atelectasis at the lung bases. Heart size is normal. There is calcified granulomata at the spleen. Liver is intact. Stomach is intact. There is no evidenc e of pancreatic mass. Gallbladder appears normal. The bile ducts are not dilated. There is no adrenal mass. Kidneys show normal size and contour. There is no hydronephrosis. There is 2 cm cortical cyst lower pole left kidney. There is no retroperitoneal adenopathy. Ureters are not di lated. There is urinary bladder wall thickening. There is Sharpe catheter in the urinary bladder. Ther e is no inguinal hernia. There is no mesenteric edema. There is no ascites or free air. There is no evidence of a pelvic mass. There are some distended contrast filled loops of small bowel in the mid abdomen. Small bowel is dil ated up to 4 cm. No transition point seen. Appendix is not seen. There is no sign of thickened append ix. There is multilevel lumbar spondylotic changes and levoscoliotic deformity. The hip joints are intact . IMPRESSION: Dilated small bowel without a transition point. This probably relates to partial obstruction or intes tinal ileus. Urinary bladder wall thickening suggestive of nonspecific cystitis. Infiltrate and atelectasis at both lung bases.
[2020-07-11] MEDS ORDERED: VANCOMYCIN 1,500 MG in SODIUM CHLORIDE 0.9% 250 ML IVPB ONE (18:00)
[2020-07-11 18:51] LABS: Potassium 3.2 mmol/L (3.5-5.1)
[2020-07-11 18:52] LABS: Calcium 8.2 mg/dL (8.4-10.2)
[2020-07-11] MEDS: DULoxetine HCL 60 MG CAPSULE.DR PO SCH (21:58)
[2020-07-11] MEDS: ARIPiprazole 15 MG TAB PO SCH (21:59)
[2020-07-12] MEDS: CEFEPIME 1 GM in SODIUM CHLORIDE 0.9% 50 ML IVPB SCH (00:14)
[2020-07-12] MEDS: LEVOTHYROXINE 75 MCG TAB PO SCH (06:32)
[2020-07-12] MEDS: SODIUM CHLORIDE 0.9% 1,000 ML IV SCH ×3 (06:32→21:09)
[2020-07-12] MEDS: PANTOPRAZOLE 40 MG TABLET PO SCH ×2 (06:32→17:19)
[2020-07-12] MEDS: SUCRALFATE 1 GM TAB PO SCH ×4 (06:32→21:02)
--- NOTE | 2020-07-12 08:54 | XR ---
EXAMINATION TYPE: XR abdomen 2V DATE OF EXAM: 07/12/2020 HISTORY: Pain. Technique: 3 views of the abdomen are submitted. Comparison: 07/10/2020 Findings: There is improved distention of the stomach. Small bowel continues to be dilated up to 4.8 cm. There is seen within the colon as well. Findings are nonspecific however could reflect ileus. No evidence f or free air. No mass effects are noted. No renal calcifications are identified. IMPRESSION: 1. There is improved distention of the stomach. Small bowel continues to be dilated up to 4.8 cm. The re is seen within the colon as well. Findings are nonspecific however could reflect ileus. No evidenc e for free air.
[2020-07-12] MEDS: CHOLECALCIFEROL 25 MCG (1000 IU) TABLET PO SCH (09:54)
[2020-07-12] MEDS: LOPERAMIDE 2 MG CAP PO PRN (09:54)
[2020-07-12] MEDS: SODIUM BICARBONATE TAB 650 MG TAB PO SCH ×3 (09:54→21:02)
[2020-07-12] MEDS: CARBIDOPA-LEVODOPA 25-100 MG 1 EACH TAB PO SCH ×2 (09:55→21:03)
[2020-07-12] MEDS: DILTIAZEM CD 120 MG CAP.ER.24H PO SCH (09:55)
[2020-07-12] MEDS: DULoxetine HCL 30 MG CAPSULE.DR PO SCH (09:55)
[2020-07-12] MEDS: DIVALPROEX 500 MG TABLET.DR PO SCH ×4 (09:55→21:03)
[2020-07-12] MEDS: ATORVASTATIN 20 MG TAB PO SCH (09:55)
[2020-07-12] MEDS: allopurinoL 100 MG TAB PO SCH ×3 (09:55→21:03)
--- NOTE | 2020-07-12 10:50 | P.PN ---
Subjective Patient is seen in follow-up for acute kidney injury on chronic any disease. Patient has chronic kidney disease stage IIIB with baseline creatinine in the range of 1.5-2 secondary to cardiorenal syndrome. Creatinine 3.49 as of yesterday evening. Diuretics are held. He is currently maintained on normal saline. Output from the ileostomy has slowed down. Has a Sharpe catheter. Nonoliguric. Patient is not a reliable historian due to mental impairment. Vital signs are stable. General: The patient appeared well nourished and normally developed. HEENT: Head exam is unremarkable. Neck is without jugular venous distension. LUNGS: Breath sounds decreased. HEART: Rate and Rhythm are regular. ABDOMEN: Soft, nontender. Ileostomy noted. EXTREMITITES: No edema. Objective - Vital Signs Vital signs: Vital Signs Temp 97.5 F L 07/12/20 08:00 Pulse 63 07/12/20 08:00 Resp 18 07/12/20 08:00 BP 104/52 07/12/20 08:00 Pulse Ox 95 07/12/20 08:00 Intake & Output 07/11/20 07/12/20 07/12/20 18:59 06:59 18:59 Intake Total 1300 237 222 Output Total 2175 1850 Balance -875 -1613 222 Weight 98 kg 98.5 kg Intake: Intake, IV Titration 1300 Amount Cefepime 1 gm In Sodium 50 Chloride 0.9% 50 ml @ 12. 5 mls/hr IVPB Q12HR [facility] Rx#:[id number] Desmopressin Acetate 26 50 mcg In Sodium Chloride 0. 9% 50 ml @ 200 mls/hr IVPB ONCE ONE Rx#: [id number] Sodium Chloride 0.9% 1, 1200 000 ml @ 150 mls/hr IV . Q6H40M [facility] Rx#:[id number] Oral 0 237 222 Output: Urine 875 650 Stool 1300 1200 Other: Voiding Method Indwelling Catheter Indwelling Catheter - Labs CBC & Chem 7: 07/11/20 07:24 07/11/20 18:17 Labs: Abnormal Lab Results - Last 24 Hours (Table) 07/11/20 Range/Units 18:17 Sodium 121 L (137-145) mmol/L Potassium 3.2 L (3.5-5.1) mmol/L Chloride 82 L (98-107) mmol/L Carbon Dioxide 20 L (22-30) mmol/L BUN 143 H* (9-20) mg/dL Creatinine 3.49 H (0.66-1.25) mg/dL Glucose 127 H (74-99) mg/dL Calcium 8.2 L (8.4-10.2) mg/dL Assessment and Plan Plan: Assessment: 1. Acute kidney injury secondary to ATN secondary to hypovolemia. Creatinine 3.49 as of yesterday evening. 2. Metabolic acidosis secondary to acute kidney injury and GI losses. s/p bicarb drip. Better. Maintained on oral bicarbonate. 3. Hyponatremia secondary to acute kidney injury. Hypovolemic. Also on liquid diet. Depakote and Cymbalta can also induce SIADH. Urine sodium less than 10 and urine osmolality 433. 4. Chronic kidney disease stage IIIB with baseline creatinine in the range of 1.5-2 secondary to cardiorenal syndrome. 5. History of sigmoid volvulus with colectomy and ileostomy. 6. Chronic diastolic CHF. 7. Chronic kidney disease mineral bone disease maintained on calcitriol. 8. Hypokalemia from poor intake. Replace. 9. Elevated BUN secondary to prerenal state. No evidence of GI bleed. Not on steroids. 10. High output from the ileostomy. On Imodium. Consider Questran. 11. Status post IV DDAVP July 11 for nosebleed. Now resolved. Plan: Maintain normal saline at 150 mL an hour. Avoid nephrotoxins. Continue to monitor renal function and urine output. Continue to assess daily for renal replacement therapy. Encourage oral intake. Currently on clear liquid diet.
[2020-07-12 11:07] LABS: HCT 28.4 % (39.0-53.0); MCH 33.5 pg (25.0-35.0); MCHC 34.9 g/dL (31.0-37.0); Mean Platelet Volume 10.4; Platelet Count 180 k/uL (150-450); RBC 2.96 m/uL (4.30-5.90); RDW 15.1 % (11.5-15.5)
[2020-07-12 11:15] LABS: HGB 9.9 gm/dL (13.0-17.5); Magnesium 2.5 mg/dL (1.6-2.3); Phosphorus 4.5 mg/dL (2.5-4.5); Potassium 3.7 mmol/L (3.5-5.1)
[2020-07-12 11:29] LABS: Band Neutrophils % 9 %; Eosinophils # (M) 0.11 k/uL (0-0.7); Metamyelocytes % 4 %; Myelocytes % 9 %; Neutrophils % (M) 59 %; Nucleated Red Blood Cells 1 /100 WBC (0-0); Total Cells Counted 200
[2020-07-12 11:30] LABS: Lymphocytes # (M) 1.02 k/uL (1.0-4.8); Metamyelocytes # (M) 0.45 k/uL (0); Monocytes # (M) 1.24 k/uL (0-1.0); Myelocytes # (M) 1.02 k/uL (0); Toxic Granulation Present; WBC 11.3 k/uL (3.8-10.6)
[2020-07-12] MEDS: CHOLESTYRAMINE (WITH SUGAR) 4 GM PACKET PO SCH (13:14)
--- NOTE | 2020-07-12 15:57 | P.PN ---
Subjective Progress Note Date: 07/12/20 CHIEF COMPLAINT: Abdominal pain HISTORY OF PRESENT ILLNESS: Surgical service is following regards to patient's abdominal pain and abdominal distention with increased ileostomy output. Abdominal x-ray shows improvement distention of the stomach. Small bowel continues to be dilated up to 4.8 cm. Findings are nonspecific however could reflect ileus. No evidence for free air. Patient is on a clear liquid diet. Denies any nausea or vomiting. NG tube was not placed yesterday due to epistaxis. Patient is still having high ileostomy output. He does report abdominal pain. Afebrile. WBC 11.3 hemoglobin 9.9 sodium 124 potassium 3.7 BUN 128 creatinine 2.48. Nephrology is following patient closely and monitor kidney function daily in regards to possible needing renal replacement therapy. Antibi otics were discontinued today. Computed tomography scan of the abdomen and pelvis shows dilated small bowel without a transition point. This probably relates to partial obstruction or intestinal ileus. PHYSICAL EXAM: VITAL SIGNS: Reviewed GENERAL: Well-developed in no acute distress. HEENT: No sclera icterus. Extraocular movements grossly intact. Moist buccal mucosa. Head is atraumatic, normocephalic. Hears conversational speech. No nasal drainage. NECK: Supple without lymphadenopathy. CHEST: Non-labored respirations and equal bilateral excursions. CARDIOVASCULAR: Palpable 2+ radial pulses. ABDOMEN: Soft. Nondistended. Nontender. MUSCULOSKELETAL: No clubbing or cyanosis. NEUROLOGIC: No focal or lateralizing signs. Cranial nerves II through XII grossly intact. PSYCH: Appropriate affect. Patient is awake and alert. Developmentally delayed. SKIN: Well perfused. Good skin turgor. ASSESSMENT: 1. Abdominal distention and pain possibly due to ileus versus partial small bowel obstruction 2. Distended stomach with air and prominent air-filled loops of colon noted on abdominal x-ray 3. High ileostomy output 4. Coffee-ground emesis status post EGD by GI service which showed LA grade D esophagitis, mild gastritis, moderate amount of retained food debris in the st omach, small hiatal hernia 5. Epistaxis 6. Acute inferior [place] status post cardiac catheterization revealing normal coronary arteries 7. Acute kidney injury followed by nephrology 8. Chronic kidney disease 9. Dehydration 10. Bipolar disorder 11. Cerebral palsy with cognitive impairment 12. Hypertension 13. Hypothyroidism 14. 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 Hyponatremia 16. Hypokalemia PLAN: -We'll check upper GI with small bowel follow-through for further evaluation of ileus versus small bowel obstruction -Continue supportive care -Further recommendations forthcoming Physician Rn Picu note has been reviewed by physician. Signing provider agrees with the documented findings, assessment, and plan of care. Objective - Vital Signs Vital signs: Vital Signs Temp 97.5 F L 07/12/20 08:00 Pulse 70 07/12/20 14:00 Resp 18 07/12/20 12:00 BP 143/54 07/12/20 12:00 Pulse Ox 94 L 07/12/20 12:00 Intake & Output 07/11/20 07/12/20 07/12/20 18:59 06:59 18:59 Intake Total 1300 237 444 Output Total 2175 1850 1750 Balance -894 -7987 -0963 Weight 98 kg 98.5 kg 98.5 kg Intake: Intake, IV Titration 1300 Amount Cefepime 1 gm In Sodium 50 Chloride 0.9% 50 ml @ 12. 5 mls/hr IVPB Q12HR [facility] Rx#:[id number] Desmopressin Acetate 26 50 mcg In Sodium Chloride 0. 9% 50 ml @ 200 mls/hr IVPB ONCE ONE Rx#: [id number] Sodium Chloride 0.9% 1, 1200 000 ml @ 150 mls/hr IV . Q6H40M [facility] Rx#:[id number] Oral 0 237 444 Output: Urine 875 650 800 Stool 1300 1200 950 Other: Voiding Method Indwelling Catheter Indwelling Catheter Indwelling Catheter - Labs CBC & Chem 7: 07/12/20 10:19 07/12/20 10:19 Labs: Abnormal Lab Results - Last 24 Hours (Table) 07/11/20 07/12/20 07/12/20 Range/Units 18:17 10:19 10:19 WBC 11.3 H (3.8-10.6) k/uL RBC 2.96 L (4.30-5.90) m/uL Hgb 9.9 L D (13.0-17.5) gm/dL Hct 28.4 L (39.0-53.0) % Monocytes # (Manual) 1.24 H (0-1.0) k/uL Metamyelocytes # (Man) 0.45 H (0) k/uL Myelocytes # (Manual) 1.02 H (0) k/uL Nucleated RBCs 1 H (0-0) /100 WBC Sodium 121 L 124 L (137-145) mmol/L Potassium 3.2 L (3.5-5.1) mmol/L Chloride 82 L 90 L (98-107) mmol/L Carbon Dioxide 20 L 19 L (22-30) mmol/L BUN 143 H* 128 H* (9-20) mg/dL Creatinine 3.49 H 2.48 H (0.66-1.25) mg/dL Glucose 127 H 130 H (74-99) mg/dL Calcium 8.2 L 8.0 L (8.4-10.2) mg/dL Magnesium 2.5 H (1.6-2.3) mg/dL
--- NOTE | 2020-07-12 16:18 | P.PN ---
Subjective Progress Note Date: 07/12/20 Principal diagnosis: hypoxia and GI bleeding Still having high ostomy output. Bag had to be changed every hour last night. No fevers or chills. Objective - Vital Signs Vital signs: Vital Signs Temp 97.5 F L 07/12/20 08:00 Pulse 72 07/12/20 15:51 Resp 16 07/12/20 15:51 BP 143/54 07/12/20 12:00 Pulse Ox 94 L 07/12/20 12:00 Intake & Output 07/11/20 07/12/20 07/12/20 18:59 06:59 18:59 Intake Total 1300 237 444 Output Total 2175 1850 1750 Balance -229 -7111 -6729 Weight 98 kg 98.5 kg 98.5 kg Intake: Intake, IV Titration 1300 Amount Cefepime 1 gm In Sodium 50 Chloride 0.9% 50 ml @ 12. 5 mls/hr IVPB Q12HR [facility] Rx#:[id number] Desmopressin Acetate 26 50 mcg In Sodium Chloride 0. 9% 50 ml @ 200 mls/hr IVPB ONCE ONE Rx#: [id number] Sodium Chloride 0.9% 1, 1200 000 ml @ 150 mls/hr IV . Q6H40M [facility] Rx#:[id number] Oral 0 237 444 Output: Urine 875 650 800 Stool 1300 1200 950 Other: Voiding Method Indwelling Catheter Indwelling Catheter Indwelling Catheter - Exam On physical examination, patient appears comfortable in no apparent distress. HEAD: Normocephalic, atraumatic. EYES: No scleral icterus. No conjunctival injection. MOUTH: No lesions, tongue midline. NECK: Trachea midline, no gross abnormalities. CHEST: Clear to auscultation with no wheezing or rhonchi appreciated. ABDOMEN: Soft, obese, distended, colostomy appears clean/I/intact with watery output. Bowel sounds are positive. No organomegaly. No guarding or rigidity. EXTREMITIES: No pedal edema. SKIN: No rashes, no jaundice. NEUROLOGIC: Alert but not oriented. - Labs CBC & Chem 7: 07/12/20 10:19 07/12/20 10:19 Labs: Abnormal Lab Results - Last 24 Hours (Table) 07/11/20 07/12/20 07/12/20 Range/Units 18:17 10:19 10:19 WBC 11.3 H (3.8-10.6) k/uL RBC 2.96 L (4.30-5.90) m/uL Hgb 9.9 L D (13.0-17.5) gm/dL Hct 28.4 L (39.0-53.0) % Monocytes # (Manual) 1.24 H (0-1.0) k/uL Metamyelocytes # (Man) 0.45 H (0) k/uL Myelocytes # (Manual) 1.02 H (0) k/uL Nucleated RBCs 1 H (0-0) /100 WBC Sodium 121 L 124 L (137-145) mmol/L Potassium 3.2 L (3.5-5.1) mmol/L Chloride 82 L 90 L (98-107) mmol/L Carbon Dioxide 20 L 19 L (22-30) mmol/L BUN 143 H* 128 H* (9-20) mg/dL Creatinine 3.49 H 2.48 H (0.66-1.25) mg/dL Glucose 127 H 130 H (74-99) mg/dL Calcium 8.2 L 8.0 L (8.4-10.2) mg/dL Magnesium 2.5 H (1.6-2.3) mg/dL Assessment and Plan Plan: Abdominal pain and coffee-ground emesis, diarrhea tested negative for C. diff, egd showed gastritis and esophagitis, no apparant source of bleeding Ileus vs SBO -Switch diet to clear liquid -Continue PPI. Continue Imodium and cholestyramine. -Surgery following, planning small bowel follow through in am Epistaxis, controlled -Controlled after pressure for more than 10 minutes -No ENT available -Discussed with dye range tender, will give 1 dose of DDAVP Acute inferior STEMI status post cardiac catheterization revealing normal coronaries. Likely secondary to coronary spasm. Being followed by cardiology, continue Cardizem Hold lasix for now due to LUIS ALBERTO. Oxygenation ok. Worsening LUIS ALBERTO on chronic kidney disease, currently with severe metabolic acidosis, Likely secondary to dehydration due to diarrhea. -Continue NS IV fluids -May require dialysis if renal function doesn't improve -Recheck kidney function in am -Avoid nephrotoxins -Renaly dose medications Bipolar disorder Seizure disorder History of cerebral palsy and cognitive impairment -Continue Depakote -Ativan when necessary -Continue duloxetine -Continue Sinemet Gout -Continue allopurinol Hypertension -Continue amlodipine -Continue Diltiazem Hypothyroidism -Continue levothyroxine Resolved: Fever, treated with broad spectrum abx for 2 days, those were discontinued as he did not have recurrent fevers or leukocytosis and there is no evidence of ongoing infection. DVT prophylaxis is on hold due to suspected bleed Patient is a full code
--- NOTE | 2020-07-12 16:24 | PN ---
PROGRESS NOTE DATE OF DICTATION: July 12, 2020 Patient is a 69-year-old pleasant white male admitted to hospital with nausea vomiting and coffee-ground emesis. He had an upper endoscopy by Dr. Melissa four days ago and was noted to have LA grade D reflux esophagitis. Presently on Protonix 40 mg twice daily. 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 He has been having increased ileostomy output for the last 4-5 days. He is currently on Imodium 2 tablets 4 times daily. He also developed small bowel ileus and Surgery following the patient closely. He had a CT of the abdomen and pelvis done yesterday that showed dilated small bowel loops. The patient denies any symptoms today. His abdominal pain has improved. He states that the abdominal distention has improved. PHYSICAL EXAMINATION: He appears comfortable. Vital signs are stable. Blood pressure is 104/52, pulse rate 63, temperature 97.5. HEENT EXAMINATION: Unremarkable. Conjunctivae pink. Sclerae anicteric. Oral cavity no lesions. NECK: No JVD or lymph node enlargement. CHEST: Was clear to auscultation. HEART: Regular rate and rhythm. ABDOMEN: Soft. It was nontender. The ileostomy in place. Stool was still liquid. EXTREMITIES: No pedal edema. SKIN: No rashes. NEUROLOGIC: Alert and oriented x3. No focal deficits. Stool output in the last 24 hours was 1.1 L. IMPRESSION: 1. Severe reflux esophagitis on Protonix 40 mg twice daily. 2. Small bowel obstruction versus small bowel ileus, Surgery following the patient closely. 3. Increased ileostomy output, which is gradually improving. Remains on Imodium 2 tablets 4 times daily. 4. History of sigmoid volvulus, status post colectomy with ileostomy. 5. History of cerebral palsy. RECOMMENDATIONS: 1. Continue with Imodium 2 tablets 4 times daily. 2. Continue with a clear liquid diet. 3. Continue Protonix 40 mg twice daily. 4. We will follow with you closely. Thank you for this consultation. MMODL / IJN: [id number] /
[2020-07-12] MEDS: DULoxetine HCL 60 MG CAPSULE.DR PO SCH (21:03)
[2020-07-12] MEDS: ARIPiprazole 15 MG TAB PO SCH (21:03)
[2020-07-13] MEDS: SODIUM CHLORIDE 0.9% 1,000 ML IV SCH ×3 (05:38→16:59)
[2020-07-13 09:28] LABS: HGB 9.1 gm/dL (13.0-17.5); MCH 34.2 pg (25.0-35.0); MCHC 35.1 g/dL (31.0-37.0); MCV 97.4 fL (80.0-100.0); Mean Platelet Volume 9.9; Platelet Count 181 k/uL (150-450); RBC 2.67 m/uL (4.30-5.90); RDW 14.6 % (11.5-15.5)
[2020-07-13 09:33] LABS: Calcium 8.1 mg/dL (8.4-10.2); Magnesium 2.4 mg/dL (1.6-2.3); Phosphorus 2.9 mg/dL (2.5-4.5); Potassium 3.6 mmol/L (3.5-5.1)
[2020-07-13] MEDS ORDERED: POTASSIUM CHLORIDE ER 20 MEQ TAB.ER PO STA (09:52)
[2020-07-13 10:03] LABS: Band Neutrophils % 14 %; Eosinophils # (M) 0.09 k/uL (0-0.7); Lymphocytes # (M) 1.35 k/uL (1.0-4.8); Metamyelocytes % 10 %; Monocytes # (M) 0.27 k/uL (0-1.0); Myelocytes # (M) 1.17 k/uL (0); Myelocytes % 13 %; Neutrophils % (M) 47 %; Nucleated Red Blood Cells 0 /100 WBC (0-0); Total Cells Counted 200
[2020-07-13 10:04] LABS: Poikilocytosis (M) Present; Toxic Granulation Present
[2020-07-13 10:58] LABS: Vancomycin,Random 14.7 ug/mL
[2020-07-13] MEDS: allopurinoL 100 MG TAB PO SCH ×3 (11:11→20:33)
[2020-07-13] MEDS: SUCRALFATE 1 GM TAB PO SCH ×4 (11:11→20:34)
[2020-07-13] MEDS: DIVALPROEX 500 MG TABLET.DR PO SCH ×4 (11:11→20:32)
--- NOTE | 2020-07-13 13:53 | P.PN ---
Subjective Progress Note Date: 07/13/20 Principal diagnosis: hypoxia and GI bleeding The stools output has diminished according to the nursing staff. No fevers recorded, oxygenating well. Objective - Vital Signs Vital signs: Vital Signs Temp 96.8 F L 07/13/20 08:00 Pulse 64 07/13/20 08:00 Resp 18 07/13/20 08:30 BP 117/48 07/13/20 08:00 Pulse Ox 96 07/13/20 08:00 Intake & Output 07/12/20 07/13/20 07/13/20 18:59 06:59 18:59 Intake Total 444 300 Output Total 2024 1175 425 Balance -1581 -875 -425 Weight 98.5 kg 99 kg Intake: Oral 444 300 Output: Urine 1075 975 425 Stool 950 200 Other: Voiding Method Indwelling Catheter Indwelling Catheter Indwelling Catheter - Exam On physical examination, patient appears comfortable in no apparent distress. HEAD: Normocephalic, atraumatic. EYES: No scleral icterus. No conjunctival injection. MOUTH: No lesions, tongue midline. NECK: Trachea midline, no gross abnormalities. CHEST: Clear to auscultation with no wheezing or rhonchi appreciated. ABDOMEN: Soft, obese, distended, colostomy appears clean/I/intact with watery output. Bowel sounds are positive. No organomegaly. No guarding or rigidity. EXTREMITIES: No pedal edema. SKIN: No rashes, no jaundice. NEUROLOGIC: Alert but not oriented. - Labs CBC & Chem 7: 07/13/20 08:51 07/13/20 08:51 Labs: Abnormal Lab Results - Last 24 Hours (Table) 07/13/20 07/13/20 Range/Units 08:51 08:51 RBC 2.67 L (4.30-5.90) m/uL Hgb 9.1 L (13.0-17.5) gm/dL Hct 26.0 L (39.0-53.0) % Metamyelocytes # (Man) 0.90 H (0) k/uL Myelocytes # (Manual) 1.17 H (0) k/uL Sodium 130 L (137-145) mmol/L BUN 92 H (9-20) mg/dL Creatinine 1.61 H (0.66-1.25) mg/dL Glucose 102 H (74-99) mg/dL Calcium 8.1 L (8.4-10.2) mg/dL Magnesium 2.4 H (1.6-2.3) mg/dL Assessment and Plan Plan: Abdominal pain and coffee-ground emesis, diarrhea tested negative for C. diff, egd showed gastritis and esophagitis, no apparant source of bleeding Ileus vs SBO -Switch diet to clear liquid -Continue PPI. Continue Imodium and cholestyramine. -Surgery following, planning small bowel follow through today Recurrent epistaxis -Controlled after pressure and [id number] Acute inferior STEMI status post cardiac catheterization revealing normal coronaries. Likely secondary to coronary spasm. Was seen by cardiology, continue Cardizem Was given lasix early in the hospitalization for fluid overload, now held due to LUIS ALBERTO. Oxygenation ok. LUIS ALBERTO on chronic kidney disease, with metabolic acidosis, Likely secondary to dehydration due to diarrhea. --Better today, nephrology following -Continue NS IV fluids -Recheck kidney function in am -Avoid nephrotoxins -Renaly dose medications Bipolar disorder Seizure disorder History of cerebral palsy and cognitive impairment -Continue Depakote -Ativan when necessary -Continue duloxetine -Continue Sinemet Gout -Continue allopurinol Hypertension -Continue amlodipine -Continue Diltiazem Hypothyroidism -Continue levothyroxine Resolved: Fever, treated with broad spectrum abx for 2 days, those were discontinued on 07/09 as he did not have recurrent fevers or leukocytosis and there is no evidence of ongoing infection. DVT prophylaxis is on hold due to bleeding Patient is a full code Anticipated discharge 1-2 days Disposition: back to [place]
--- NOTE | 2020-07-13 15:26 | P.PN ---
Subjective Progress Note Date: 07/13/20 Currently undergoing small bowel follow-through. No reports of emesis. No reports of peritonitis. Pending results of small bowel follow-through. Diet as tolerated. Objective - Vital Signs Vital signs: Vital Signs Temp 96.8 F L 07/13/20 08:00 Pulse 64 07/13/20 08:00 Resp 18 07/13/20 08:30 BP 117/48 07/13/20 08:00 Pulse Ox 96 07/13/20 08:00 Intake & Output 07/12/20 07/13/20 07/13/20 18:59 06:59 18:59 Intake Total 444 300 Output Total 2 7615 425 Balance -1581 -875 -425 Weight 98.5 kg 99 kg 99 kg Intake: Oral 444 300 Output: Urine 1075 975 425 Stool 950 200 Other: Voiding Method Indwelling Catheter Indwelling Catheter Indwelling Catheter - Labs CBC & Chem 7: 07/13/20 08:51 07/13/20 08:51 Labs: Abnormal Lab Results - Last 24 Hours (Table) 07/13/20 07/13/20 Range/Units 08:51 08:51 RBC 2.67 L (4.30-5.90) m/uL Hgb 9.1 L (13.0-17.5) gm/dL Hct 26.0 L (39.0-53.0) % Metamyelocytes # (Man) 0.90 H (0) k/uL Myelocytes # (Manual) 1.17 H (0) k/uL Sodium 130 L (137-145) mmol/L BUN 92 H (9-20) mg/dL Creatinine 1.61 H (0.66-1.25) mg/dL Glucose 102 H (74-99) mg/dL Calcium 8.1 L (8.4-10.2) mg/dL Magnesium 2.4 H (1.6-2.3) mg/dL
--- NOTE | 2020-07-13 15:51 | PN ---
PROGRESS NOTE DATE OF DICTATION: 07/13/2020 This patient is a 69-year-old pleasant white male admitted to the hospital with nausea, vomiting and coffee-ground emesis. An upper endoscopy by Dr. Melissa revealed LA grade C reflux esophagitis. While in the hospital he developed increased ileostomy output. The patient had colectomy for sigmoid volvulus and has been having increased ileostomy output. He was started on Imodium 2 tablets 4 times daily as well as Questran, and the ileostomy output is gradually improving. As per the nursing staff, in the last shift he only had 250 mL of thick stool in the ileostomy bag. The patient denies any symptoms. He is scheduled for an upper GI small bowel series today. PHYSICAL EXAMINATION: He appears comfortable. VITAL SIGNS: Stable. Blood pressure is 117/48, pulse rate 64, temperature 96.8. HEENT examination unremarkable. Conjunctivae pink. Sclerae anicteric. Oral cavity no lesions. NECK: No JVD or lymph node enlargement. CHEST: Clear to auscultation. HEART: Regular rate and rhythm. ABDOMEN: Soft. Bowel sounds are positive. Ileostomy bag in the right lower quadrant area. EXTREMITIES: No pedal edema. NEUROLOGIC: He is alert, oriented to name and place, not to time. LABS: Labs from today show WBC 9, hemoglobin 9.1, platelets are normal. Basic metabolic panel showed a BUN of 92 and creatinine 1.61. IMPRESSION: 1. Increased ileostomy output. Patient with a history of sigmoid volvulus, for which he underwent colectomy with ileostomy a few years ago, presently having increased ileostomy output, but currently on Questran one packet twice daily as well as Imodium 2 tablets 4 times daily, and the output is gradually improving. 2. Nausea, vomiting and coffee-ground emesis secondary to severe LA grade C reflux esophagitis, on Protonix 40 mg twice daily and doing well. 3. Small bowel obstruction versus ileus. Surgery following the patient. He was scheduled for an upper GI small bowel series today, results of which are still pending at the time of this dictation. 4. Acute kidney injury secondary to acute tubular necrosis from severe hypovolemia from increased ileostomy output. BUN and creatinine are gradually improving. 5. History of electrolyte abnormalities, all improving. 6. History of chronic kidney disease, stage 3. RECOMMENDATIONS: 1. Advance diet as per surgical recommendations. 2. Continue Imodium and Questran for now. 3. Monitor ileostomy output closely. 4. Symptomatic and supportive care. 5. Will follow with you closely. Thank you for this consultation. VASILIY / INOCENCIO: [id number] /
[2020-07-13] MEDS: PANTOPRAZOLE 40 MG TABLET PO SCH ×2 (16:22→16:42)
[2020-07-13] MEDS: SODIUM BICARBONATE TAB 650 MG TAB PO SCH ×3 (16:22→20:33)
[2020-07-13] MEDS: CARBIDOPA-LEVODOPA 25-100 MG 1 EACH TAB PO SCH ×2 (16:30→20:33)
[2020-07-13] MEDS: DULoxetine HCL 30 MG CAPSULE.DR PO SCH (16:30)
[2020-07-13] MEDS: CHOLESTYRAMINE (WITH SUGAR) 4 GM PACKET PO SCH (16:39)
[2020-07-13] MEDS: ATORVASTATIN 20 MG TAB PO SCH (16:41)
[2020-07-13] MEDS: LEVOTHYROXINE 75 MCG TAB PO SCH (16:41)
[2020-07-13] MEDS: DILTIAZEM CD 120 MG CAP.ER.24H PO SCH (16:44)
[2020-07-13] MEDS: ARIPiprazole 15 MG TAB PO SCH (20:33)
[2020-07-13] MEDS: DULoxetine HCL 60 MG CAPSULE.DR PO SCH (20:33)
--- NOTE | 2020-07-13 20:57 | P.PN ---
Subjective Progress Note Date: 07/13/20 CHIEF COMPLAINT: Ileus HISTORY OF PRESENT ILLNESS: The patient is a 69-year-old male with cerebral p alsy, high out-put ileostomy, abdominal distention and ileus. Previously, he had abdominal pain. CT scan had showed possible small bowel obstruction versus ileus. He denies any abdominal pain today. He is pending an upper GI series. No reports of nausea and vomiting. He Yesterday, he had over 2000 mL output from his ileostomy. ROS: No reports of nausea and vomiting. No fevers or chills. No new chest pain. PHYSICAL EXAM: VITAL SIGNS: Reviewed CONSTITUTIONAL: Well developed and in no acute distress. EYES: Conjuctivae without sclera icterus. Extraocular movements grossly intact. HEAD, EARS, NOSE, THROAT: Moist buccal mucosa. Head is atraumatic, normocephalic. Hears conversational speech. No nasal drainage. NECK: Supple. No thyroidomegaly. RESPIRATORY: Non-labored respirations and equal bilateral excursions. CARDIOVASCULAR: Palpable 2+ radial pulses. Regular rate. Regular rhythm. ABDOMEN: Soft. No peritonitis. MUSCULOSKELETAL: No gross deformity of the lower extremities noted. No clubbing. No cyanosis. SKIN: Good skin turgor. Well perfused. NEUROLOGIC: Cranial nerves II through XII grossly intact. No focal or lateralizing signs. PSYCH: Awake and alert. CLINICAL LABS: White blood cell count down from 11.3 to 9.0. Hgb down from 9.9 to 9.0. Sodium up from 124 to 130, but hyponatremia ASSESSMENT: 1. High output ileostomy 2. Ileus 3. Anemia 4. Hyponatremia PLAN: 1. Pending upper GI series 2. Diet as tolerated pending completion of upper GI series. Objective - Vital Signs Vital signs: Vital Signs Temp 96.8 F L 07/13/20 08:00 Pulse 64 07/13/20 17:20 Resp 18 07/13/20 17:20 BP 116/70 07/13/20 16:45 Pulse Ox 94 L 07/13/20 16:45 Intake & Output 07/13/20 07/13/20 07/14/20 06:59 18:59 06:59 Intake Total 300 285 Output Total 1175 925 Balance -875 -640 Weight 99 kg 99 kg Intake: Oral 300 285 Output: Urine 975 825 Stool 200 100 Other: Voiding Method Indwelling Catheter Indwelling Catheter - Labs CBC & Chem 7: 07/13/20 08:51 07/13/20 08:51 Labs: Abnormal Lab Results - Last 24 Hours (Table) 07/13/20 07/13/20 Range/Units 08:51 08:51 RBC 2.67 L (4.30-5.90) m/uL Hgb 9.1 L (13.0-17.5) gm/dL Hct 26.0 L (39.0-53.0) % Metamyelocytes # (Man) 0.90 H (0) k/uL Myelocytes # (Manual) 1.17 H (0) k/uL Sodium 130 L (137-145) mmol/L BUN 92 H (9-20) mg/dL Creatinine 1.61 H (0.66-1.25) mg/dL Glucose 102 H (74-99) mg/dL Calcium 8.1 L (8.4-10.2) mg/dL Magnesium 2.4 H (1.6-2.3) mg/dL Assessment and Plan (1) Hyponatremia Current Visit: Yes Status: Acute Code(s): E87.1 - HYPO-OSMOLALITY AND HYPONATREMIA SNOMED Code(s): 09688121 (2) Ileus Current Visit: Yes Status: Acute Code(s): K56.7 - ILEUS, UNSPECIFIED SNOMED Code(s): 934325517 (3) High output ileostomy Current Visit: Yes Status: Acute Code(s): R19.8 - OTH SYMPTOMS AND SIGNS INVOLVING THE DGSTV SYS AND ABDOMEN; Z93.2 - ILEOSTOMY STATUS SNOMED Code(s): 499517451 (4) Cerebral palsy Current Visit: Yes Status: Acute Code(s): G80.9 - CEREBRAL PALSY, UNSPECIFIED SNOMED Code(s): 510146014
[2020-07-14] MEDS: SUCRALFATE 1 GM TAB PO SCH ×4 (06:47→21:40)
[2020-07-14] MEDS: PANTOPRAZOLE 40 MG TABLET PO SCH ×2 (06:47→17:30)
[2020-07-14] MEDS: SODIUM CHLORIDE 0.9% 1,000 ML IV SCH ×2 (06:47→12:53)
[2020-07-14] MEDS: LEVOTHYROXINE 75 MCG TAB PO SCH (06:47)
[2020-07-14] MEDS: ATORVASTATIN 20 MG TAB PO SCH (09:17)
[2020-07-14] MEDS: CHOLESTYRAMINE (WITH SUGAR) 4 GM PACKET PO SCH (09:17)
[2020-07-14] MEDS: DIVALPROEX 500 MG TABLET.DR PO SCH ×4 (09:17→21:40)
[2020-07-14] MEDS: CARBIDOPA-LEVODOPA 25-100 MG 1 EACH TAB PO SCH ×2 (09:17→21:40)
[2020-07-14] MEDS: DULoxetine HCL 30 MG CAPSULE.DR PO SCH (09:18)
[2020-07-14] MEDS: allopurinoL 100 MG TAB PO SCH ×3 (09:18→21:40)
[2020-07-14] MEDS: DILTIAZEM CD 120 MG CAP.ER.24H PO SCH (09:18)
[2020-07-14] MEDS: SODIUM BICARBONATE TAB 650 MG TAB PO SCH ×3 (09:18→21:40)
[2020-07-14] MEDS: CHOLECALCIFEROL 25 MCG (1000 IU) TABLET PO SCH (09:18)
[2020-07-14 10:24] LABS: Calcium 8.7 mg/dL (8.4-10.2); Magnesium 2.4 mg/dL (1.6-2.3)
[2020-07-14 10:41] LABS: HCT 31.9 % (39.0-53.0); HGB 10.2 gm/dL (13.0-17.5); MCHC 31.9 g/dL (31.0-37.0); MCV 100.2 fL (80.0-100.0); Macrocytosis Slight; Mean Platelet Volume 11.1; Platelet Count 178 k/uL (150-450); RBC 3.18 m/uL (4.30-5.90); RDW 15.2 % (11.5-15.5); WBC 8.7 k/uL (3.8-10.6)
[2020-07-14 10:59] LABS: Valproic Acid (Depakene) 60.9 ug/mL
[2020-07-14 12:07] LABS: T4, Free (Free Thyroxine) 1.37 ng/dL (0.78-2.19)
[2020-07-14 14:01] LABS: Band Neutrophils % 15 %; Lymphocytes # (M) 0.78 k/uL (1.0-4.8); Metamyelocytes # (M) 0.52 k/uL (0); Metamyelocytes % 6 %; Monocytes # (M) 0.61 k/uL (0-1.0); Myelocytes # (M) 0.61 k/uL (0); Myelocytes % 7 %; Neutrophils % (M) 57 %; Nucleated Red Blood Cells 0 /100 WBC (0-0); Total Cells Counted 200
[2020-07-14 14:04] LABS: Toxic Granulation Present
--- NOTE | 2020-07-14 14:05 | P.PN ---
Progress Note - Text Progress Note Date: 07/14/20 Patient is resting in his bed. Appears to be some barium in the ileostomy bag. The upper GI still under progress. Abdomen soft. Ileostomy shows stool.. Patient will continue diet.
--- NOTE | 2020-07-14 14:36 | P.PN ---
Subjective Progress Note Date: 07/14/20 Follow-up for acute kidney injury. Objective - Vital Signs Vital signs: Vital Signs Temp 97.3 F L 07/14/20 08:40 Pulse 67 07/14/20 08:40 Resp 16 07/14/20 08:40 BP 113/67 07/14/20 08:40 Pulse Ox 93 L 07/14/20 08:40 Intake & Output 07/13/20 07/14/20 07/14/20 18:59 06:59 18:59 Intake Total 285 660 Output Total 925 875 700 Balance -640 -875 -40 Weight 99 kg 99 kg Intake: Oral 285 660 Output: Urine 825 700 Stool 100 700 Urine/Stool Mix 175 Other: Voiding Method Indwelling Catheter Indwelling Catheter Indwelling Catheter - Exam Exam limited secondary to Covid 19 pandemic, to limit PPE. - Labs CBC & Chem 7: 07/14/20 09:23 07/14/20 09:23 Labs: Abnormal Lab Results - Last 24 Hours (Table) 07/14/20 07/14/20 07/14/20 Range/Units 09:23 09:23 09:23 RBC 3.18 L (4.30-5.90) m/uL Hgb 10.2 L (13.0-17.5) gm/dL Hct 31.9 L (39.0-53.0) % MCV 100.2 H (80.0-100.0) fL Lymphocytes # (Manual) 0.78 L (1.0-4.8) k/uL Metamyelocytes # (Man) 0.52 H (0) k/uL Myelocytes # (Manual) 0.61 H (0) k/uL Sodium 134 L (137-145) mmol/L Carbon Dioxide 20 L (22-30) mmol/L BUN 62 H (9-20) mg/dL Creatinine 1.39 H (0.66-1.25) mg/dL Glucose 101 H (74-99) mg/dL Magnesium 2.4 H (1.6-2.3) mg/dL TSH 7.910 H (0.465-4.680) mIU/L Assessment and Plan Assessment: #1 nonoliguric acute kidney injury secondary to ischemic ATN/prerenal process. #2 chronic kidney disease stage III B secondary to nephrosclerosis with a baseline creatinine of 1.5-2.2 MG per DL. #3 high output ileostomy #4 nosebleeds status post DDA. #5 chronic diastolic CHF. #6 hypovolemic hyponatremia Plan: #1 renal function improving continue saline at 100 ML's an hour. #2 avoid nephrotoxic agents and hypotensive episodes #3 supportive care
--- NOTE | 2020-07-14 14:58 | FL ---
Small Bowel Follow Through. DATE OF EXAM: 07/14/2020 CLINICAL HISTORY: 69-year-old male with abdominal pain TECHNIQUE: A single contrast small bowel follow through is performed utilizing thin barium. Total images: 17. Total fluoroscopy time: None. Only radiographic exposures were utilized. COMPARISON: CT 07/11/2020 FINDINGS: Individual Pension Consultant image of the abdomen shows dilated small bowel loops throughout measuring up to 5.9 cm. Degener ated levoconvex scoliosis of the lumbar spine. Imaging is performed up to 28.5 hours after thin bariu m is given to the patient. At this time, the nurse reports some change and color of stool output from the patient's right abdominal ostomy suggesting that barium has reached this level. There is are a c ouple segmental areas of narrowing but dilated loops are seen distal to these levels. Small bowel in the left side of the abdomen measures up to 5.4 cm and in the right side of the abdomen measures up t o 5.7 cm. Distalmost small bowel in the right lateral mid abdomen suspected to be near the ostomy fadia sures borderline distended at 2.9 cm. Full pattern shows no gross abnormality. IMPRESSION: Right mid abdominal ostomy. There are a couple segmental areas of narrowing but there are dilated sma ll bowel loops distal to these levels. Small bowel loops in the left side of the abdomen measure up t o 5.4 cm and on the right measure up to 5.7 cm. No well-defined transition point could be identified. Imaging was carried out to 28.5 hours, at which time, some barium is noted at the patient's ostomy.
--- NOTE | 2020-07-14 15:12 | P.PN ---
Subjective Progress Note Date: 07/14/20 (Patient seen at 0815) Principal diagnosis: abdominal pain Patient is a 69-year-old male with a history of hypertension, cognitive disability, bipolar disorder, chronic kidney disease, seizures, and hypothyroidism who presented to the ER with complaints of abdominal pain, nausea, and vomiting. His initial EKG was done and there are some concerns of ST segment elevation in the lateral leads. A code STEMI was subsequently activated. He was taken emergently to the [facility]. Cath revealed clean coronaries it was felt this is likely due to vasospasm. Also noted to have coffee ground emesis however he had had a nosebleed prior to this for approximately 15 minutes while laying back in bed. He was noted to be hypoxic at 87% on room air. His CBC was followed closely and GI was consulted and recommended Protonix twice daily and stool study for C. diff, and a planned for EGD which was completed on 07/08 showed LA grade 1 distal esophagitis and mild gastritis with retained food in the stomach. Echocardiogram showed ejection fraction 60-65% with mild concentric LVH. On 07/09 he was having worsening acute renal failure and nephrology was consulted. This was felt to be secondary to volume depletion and hypotension from his continued high output from his ostomy. He was also noted to have metabolic acidosis with an anion gap and was subsequently started on a bicarb drip. His acidosis and acute kidney injury was beginning to improve. He was transient just in from bicarb to normal saline. He had an additional episode of epistaxis and was administered DDAVP. On 07/11 he was continuing to have high ostomy output and Questran was added. Surgery was consulted secondary to worsening abdominal pain. An abdominal x-ray had been obtained which demonstrated dilated loops of colon. CT abdomen and pelvis was obtained which showed dilated small bowel without a transition point related to partial traction or intestinal ileus as well as urinary bladder wall thickening. Small bowel follow-through did not show any well-defined transition point. Of note he was treated with broad-spectrum antibiotics for 2 days secondary to fevers however he did not have any recurrent fever or leukocytosis with no evidence of ongoing infection and those were subsequently discontinued. Patient seen and examined at bedside. He reports that he just doesn't feel well . He describes some pain in his legs when they are touched. He has no other complaints currently. Nursing at bedside and states that his output has decreased and is more solid. General: non toxic, no distress, appears at stated age, temporal wasting Derm: warm, dry Head: atraumatic, normocephalic, symmetric Eyes: EOMI, no lid lag, anicteric sclera Mouth: no lip lesion, mucus membranes moist Cardiovascular: S1S2 reg, no murmur, positive posterior tibial pulse bilateral, Lungs: Decreased breath sounds bilateral, no rhonchi, no rales , no accessory muscle use Abdominal: soft, nontender to palpation, no guarding, no appreciable organomegaly ostomy with formed output Ext: + gross muscle atrophy, no edema, no contractures Neuro: Decreased muscle strength and tone in all 4 extremities right greater than left, bilateral lower STEMI flexion contractures Psych: Alert, oriented, slow thinking with blunted affect Coffee ground emesis, high ostomy output, ileus -Suspect coffee-ground emesis related to recurrent nose bleeds that happen this hospital stay -C. diff negative -GI recommendations appreciated: cholesyramine - surgery recs: No definitive need for intervention at this point in time - check depakote level as can cause abd pain and diarrhea - check TSH - stop immodium with possible ileus Acute blood loss anemia - due to nose bleeds - follow CBC - check iron studies Acute kidney injury on Chronic kidney disease IIIB, Hyponatremia - nephrology recs appreciated - follow sodium levels likely due to dehydration - IVF - avoid nephrotoxic agents - on oral bicarb -Hold home Lasix Elevated troponin without coronary artery disease, likely coronary vasospasm -Inferior wall STEMI ruled out -Cardizem was changed to long acting Hypertension, controlled without medications -Follow blood pressures -Home Norvasc and Lasix on hold Hypokalemia Anion gap metabolic acidosis Epistaxis, resolved after DDAVP Chronic: Bipolar disorder, seizure disorder, gout, hypothyroidism, cognitive disability, chronic diastolic CHF DVT prophylaxis: Lovenox Discussed with: Nursing Anticipated discharge: 1-[address]: [facility] A total of 35 minutes was spent on the care of this complex patient more than 50% of the time was spent in counseling and care coordination. Objective - Vital Signs Vital signs: Vital Signs Temp 97.4 F L 07/13/20 20:00 Pulse 65 07/14/20 04:00 Resp 18 07/14/20 04:00 BP 110/65 07/14/20 04:00 Pulse Ox 94 L 07/14/20 04:00 Intake & Output 07/13/20 07/14/20 07/14/20 18:59 06:59 18:59 Intake Total 285 Output Total 925 875 Balance -640 -875 Weight 99 kg 99 kg Intake: Oral 285 Output: Urine 825 700 Stool 100 Urine/Stool Mix 175 Other: Voiding Method Indwelling Catheter Indwelling Catheter - Labs CBC & Chem 7: 07/14/20 09:23 07/14/20 09:23 Labs: Abnormal Lab Results - Last 24 Hours (Table) 07/13/20 07/13/20 Range/Units 08:51 08:51 RBC 2.67 L (4.30-5.90) m/uL Hgb 9.1 L (13.0-17.5) gm/dL Hct 26.0 L (39.0-53.0) % Metamyelocytes # (Man) 0.90 H (0) k/uL Myelocytes # (Manual) 1.17 H (0) k/uL Sodium 130 L (137-145) mmol/L BUN 92 H (9-20) mg/dL Creatinine 1.61 H (0.66-1.25) mg/dL Glucose 102 H (74-99) mg/dL Calcium 8.1 L (8.4-10.2) mg/dL Magnesium 2.4 H (1.6-2.3) mg/dL
[2020-07-14] MEDS: ENOXAPARIN 40 MG/0.4 ML SYRINGE SQ SCH (17:29)
[2020-07-14] MEDS: ARIPiprazole 15 MG TAB PO SCH (21:40)
[2020-07-14] MEDS: DULoxetine HCL 60 MG CAPSULE.DR PO SCH (21:41)
[2020-07-15] MEDS: LEVOTHYROXINE 75 MCG TAB PO SCH (06:29)
[2020-07-15] MEDS: SUCRALFATE 1 GM TAB PO SCH ×4 (06:29→19:57)
[2020-07-15] MEDS: SODIUM CHLORIDE 0.9% 1,000 ML IV SCH ×2 (06:29→10:22)
[2020-07-15] MEDS: PANTOPRAZOLE 40 MG TABLET PO SCH ×2 (06:29→18:41)
[2020-07-15 08:12] LABS: Albumin 2.6 g/dL (3.5-5.0); Calcium 8.9 mg/dL (8.4-10.2); Potassium 3.7 mmol/L (3.5-5.1); Total Bilirubin 0.4 mg/dL (0.2-1.3); Total Protein 5.4 g/dL (6.3-8.2)
[2020-07-15 08:20] LABS: HCT 26.8 % (39.0-53.0); MCH 32.6 pg (25.0-35.0); MCHC 32.4 g/dL (31.0-37.0); MCV 100.5 fL (80.0-100.0); Macrocytosis Slight; Mean Platelet Volume 9.7; Platelet Count 219 k/uL (150-450); RBC 2.67 m/uL (4.30-5.90); RDW 15.5 % (11.5-15.5); WBC 9.6 k/uL (3.8-10.6)
[2020-07-15 08:22] LABS: HGB 8.7 gm/dL (13.0-17.5)
--- NOTE | 2020-07-15 09:48 | P.PN ---
Progress Note - Text Progress Note Date: 07/15/20 Patient's small bowel follow-through upper GI was reviewed. He has definite barium in the ostomy. Patient continue liquid diet.
[2020-07-15] MEDS: SODIUM BICARBONATE TAB 650 MG TAB PO SCH ×3 (10:06→19:57)
[2020-07-15] MEDS: DILTIAZEM CD 120 MG CAP.ER.24H PO SCH (10:07)
[2020-07-15] MEDS: CARBIDOPA-LEVODOPA 25-100 MG 1 EACH TAB PO SCH ×2 (10:07→19:58)
[2020-07-15] MEDS: allopurinoL 100 MG TAB PO SCH ×3 (10:07→20:00)
[2020-07-15] MEDS: ATORVASTATIN 20 MG TAB PO SCH (10:09)
[2020-07-15] MEDS: DULoxetine HCL 30 MG CAPSULE.DR PO SCH (10:09)
[2020-07-15] MEDS: DIVALPROEX 500 MG TABLET.DR PO SCH ×4 (10:09→19:57)
[2020-07-15] MEDS: ACETAMINOPHEN TAB 325 MG TAB PO PRN (10:12)
[2020-07-15] MEDS: LOPERAMIDE 2 MG CAP PO SCH ×2 (10:14→19:57)
[2020-07-15] MEDS: CHOLESTYRAMINE (WITH SUGAR) 4 GM PACKET PO SCH (10:14)
[2020-07-15] MEDS: ENOXAPARIN 40 MG/0.4 ML SYRINGE SQ SCH (10:22)
--- NOTE | 2020-07-15 11:31 | P.PN ---
Subjective Progress Note Date: 07/15/20 (delayed charting seen at 0920) Principal diagnosis: abdominal pain Patient is a 69-year-old male with a history of hypertension, cognitive disability, bipolar disorder, chronic kidney disease, seizures, and hypothyroidism who presented to the ER with complaints of abdominal pain, nausea, and vomiting. His initial EKG was done and there are some concerns of ST segment elevation in the lateral leads. A code STEMI was subsequently activated. He was taken emergently to the [facility]. Cath revealed clean coronaries it was felt this is likely due to vasospasm. Also noted to have coffee ground emesis however he had had a nosebleed prior to this for approximately 15 minutes while laying back in bed. He was noted to be hypoxic at 87% on room air. His CBC was followed closely and GI was consulted and recommended Protonix twice daily and stool study for C. diff, and a planned for EGD which was completed on 07/08 showed LA grade 1 distal esophagitis and mild gastritis with retained food in the stomach. Echocardiogram showed ejection fraction 60-65% with mild concentric LVH. On 07/09 he was having worsening acute renal failure and nephrology was consulted. This was felt to be secondary to volume depletion and hypotension from his continued high output from his ostomy. He was also noted to have metabolic acidosis with an anion gap and was subsequently started on a bicarb drip. His acidosis and acute kidney injury was beginning to improve. He was transient just in from bicarb to normal saline. He had an additional episode of epistaxis and was administered DDAVP. On 07/11 he was continuing to have high ostomy output and Questran was added. Surgery was consulted secondary to worsening abdominal pain. An abdominal x-ray had been obtained which demonstrated dilated loops of colon. CT abdomen and pelvis was obtained which showed dilated small bowel without a transition point related to partial traction or intestinal ileus as well as urinary bladder wall thickening. Small bowel follow-through did not show any well-defined transition point but showed some ileus. He was advanced to a full liquid diet. Of note he was treated with broad-spectrum antibiotics for 2 days secondary to fevers however he did not have any recurrent fever or leukocytosis with no evidence of ongoing infection and those were subsequently discontinued. Patient seen and examined at bedside. He is feeling better today. No abdominal pain. Per nursing no acute events overnight, has been passing barium into his ileostomy. General: non toxic, no distress, appears at stated age, temporal wasting Derm: warm, dry Head: atraumatic, normocephalic, symmetric Eyes: EOMI, no lid lag, anicteric sclera Mouth: no lip lesion, mucus membranes moist Cardiovascular: S1S2 reg, no murmur, positive posterior tibial pulse bilateral, Lungs: Decreased breath sounds bilateral, no rhonchi, no rales , no accessory muscle use Abdominal: soft, nontender to palpation, no guarding, no appreciable organomegaly ostomy with formed output Ext: + gross muscle atrophy, no edema, no contractures Neuro: Decreased muscle strength and tone in all 4 extremities right greater than left, bilateral lower STEMI flexion contractures Psych: Alert, oriented, slow thinking with blunted affect Ileus, high ostomy output -Suspect coffee-ground emesis related to recurrent nose bleeds that happen this hospital stay -C. diff negative - Advanced to full liquid diet 07/15 -GI recommendations appreciated: cholesyramine - surgery recs: No definitive need for intervention at this point in time - D/W GI imodium 4mg BID Acute blood loss anemia - due to nose bleeds - follow CBC - Await iron studies Acute kidney injury on Chronic kidney disease IIIB, Hyponatremia - nephrology recs appreciated - follow sodium levels likely due to dehydration - IVF completed - avoid nephrotoxic agents - on oral bicarb -Hold home Lasix Elevated troponin without coronary artery disease, likely coronary vasospasm -Inferior wall STEMI ruled out -Cardizem was changed to long acting Hypertension, controlled without medications -Follow blood pressures -Home Norvasc and Lasix on hold Hypokalemia Anion gap metabolic acidosis Epistaxis, resolved after DDAVP Chronic: Bipolar disorder, seizure disorder, gout, hypothyroidism, cognitive disability, chronic diastolic CHF DVT prophylaxis: Lovenox Discussed with: Nursing Anticipated discharge: in AM Anticipated discharge place: return to senior living A total of 35 minutes was spent on the care of this complex patient more than 50% of the time was spent in counseling and care coordination. Objective - Vital Signs Vital signs: Vital Signs Temp 97.3 F L 07/14/20 19:28 Pulse 72 07/15/20 04:00 Resp 18 07/15/20 04:00 BP 112/60 07/15/20 04:00 Pulse Ox 95 07/15/20 04:00 Intake & Output 07/14/20 07/15/20 07/15/20 18:59 06:59 18:59 Intake Total 1140 1400 240 Output Total 1930 1850 Balance -790 -450 240 Weight 104.5 kg Intake: Intake, IV Titration 1000 Amount Sodium Chloride 0.9% 1, 1000 000 ml @ 100 mls/hr IV . Q10H IZABELA Rx#:[id number] Oral 1140 400 240 Output: Urine 700 550 Stool 1230 1300 Other: Voiding Method Indwelling Catheter Indwelling Catheter - Labs CBC & Chem 7: 07/15/20 07:21 07/15/20 07:21 Labs: Abnormal Lab Results - Last 24 Hours (Table) 07/14/20 07/14/20 07/15/20 Range/Units 09:23 09:23 07:21 RBC 2.67 L (4.30-5.90) m/uL Hgb 8.7 L D (13.0-17.5) gm/dL Hct 26.8 L (39.0-53.0) % MCV 100.5 H (80.0-100.0) fL Lymphocytes # (Manual) 0.78 L (1.0-4.8) k/uL Metamyelocytes # (Man) 0.52 H (0) k/uL Myelocytes # (Manual) 0.61 H (0) k/uL Sodium (137-145) mmol/L Carbon Dioxide (22-30) mmol/L BUN (9-20) mg/dL Creatinine (0.66-1.25) mg/dL Glucose (74-99) mg/dL Total Protein (6.3-8.2) g/dL Albumin (3.5-5.0) g/dL TSH 7.910 H (0.465-4.680) mIU/L 07/15/20 Range/Units 07:21 RBC (4.30-5.90) m/uL Hgb (13.0-17.5) gm/dL Hct (39.0-53.0) % MCV (80.0-100.0) fL Lymphocytes # (Manual) (1.0-4.8) k/uL Metamyelocytes # (Man) (0) k/uL Myelocytes # (Manual) (0) k/uL Sodium 134 L (137-145) mmol/L Carbon Dioxide 21 L (22-30) mmol/L BUN 42 H (9-20) mg/dL Creatinine 1.45 H (0.66-1.25) mg/dL Glucose 109 H (74-99) mg/dL Total Protein 5.4 L (6.3-8.2) g/dL Albumin 2.6 L (3.5-5.0) g/dL TSH (0.465-4.680) mIU/L
--- NOTE | 2020-07-15 11:43 | PN ---
PROGRESS NOTE DATE OF SERVICE: 07/15/2020 Patient is a 69-year-old pleasant white male admitted to the hospital with nausea, vomiting, coffee-ground emesis, and diagnosed with severe LA grade D reflux esophagitis by upper endoscopy done by Dr. Melissa a week ago. During the course of hospitalization he developed small bowel ileus versus obstruction. He had upper GI small-bowel series done 2 days ago and it revealed right mid abdominal ostomy. There were a couple segmental areas of narrowing, but there are dilated small bowel loops distal to these levels. No left beaver transition point noted. In the meantime, as per the nursing staff, there was about 700 cc of ileostomy output noted in the last 24 hours with significant amount of barium noted in that. The patient has been on a full liquid diet, tolerating well. He is not complaining of any abdominal pain. He has no nausea or vomiting. PHYSICAL EXAMINATION: He appears comfortable. VITAL SIGNS: Stable. Blood pressure is 112/63, pulse rate 72, temperature 98. HEENT: Examination unremarkable. Conjunctivae are pink. Sclerae anicteric. Oral cavity, no lesions. CHEST: Clear to auscultation. HEART: Regular rate and rhythm. ABDOMEN: Soft. It was nondistended. Ostomy bag in place. EXTREMITIES: No pedal edema. NEURO: He is awake, oriented to name and place. LABS: WBC 9.6, hemoglobin 8.7, platelets 219. BUN is 42, creatinine 1.45. Sodium 134, potassium 3.7, chloride 107, CO2 21. IMPRESSION: 1. Nausea, vomiting, coffee-grounds emesis, resolved. EGD revealed severe LA grade D reflux esophagitis. On Protonix 40 mg twice daily, doing well. 2. Small bowel obstruction versus ileus. Surgery is following the patient closely. Upper GI small-bowel series did not reveal any evidence of small bowel obstruction. 3. High ileostomy output, which is gradually improving. He had only 700 cc in the last 24 hours. 4. 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 RECOMMENDATIONS: 1. Start him back on Imodium 2 tablets twice daily around the clock. 2. Continue to watch the ileostomy output closely. 3. Continue Protonix 40 mg twice daily. 4. Advance diet as per Surgery. 5. We will follow with you closely. Thank you for this consultation. MMODL / IJN: [id number] /
[2020-07-15 11:58] LABS: Ferritin 247.2 ng/mL (22.0-322.0)
[2020-07-15 12:17] LABS: % Iron Saturation 7.51 (15.00-50.00)
--- NOTE | 2020-07-15 13:09 | P.PN ---
Subjective Progress Note Date: 07/15/20 Follow-up for acute kidney injury. Objective - Vital Signs Vital signs: Vital Signs Temp 97.3 F L 07/15/20 09:00 Pulse 74 07/15/20 09:00 Resp 18 07/15/20 09:00 BP 107/56 07/15/20 09:00 Pulse Ox 97 07/15/20 09:00 Intake & Output 07/14/20 07/15/20 07/15/20 18:59 06:59 18:59 Intake Total 1140 1400 240 Output Total 1930 1850 700 Balance -790 -450 -460 Weight 104.5 kg Intake: Intake, IV Titration 1000 Amount Sodium Chloride 0.9% 1, 1000 000 ml @ 100 mls/hr IV . Q10H IZABELA Rx#:[id number] Oral 1140 400 240 Output: Urine 700 550 Stool 1230 1300 700 Other: Voiding Method Indwelling Catheter Indwelling Catheter Indwelling Catheter - Exam Exam limited secondary to Covid 19 pandemic, to limit PPE. - Labs CBC & Chem 7: 07/15/20 07:21 07/15/20 07:21 Labs: Abnormal Lab Results - Last 24 Hours (Table) 07/14/20 07/15/20 07/15/20 Range/Units 09:23 07:21 07:21 RBC 2.67 L (4.30-5.90) m/uL Hgb 8.7 L D (13.0-17.5) gm/dL Hct 26.8 L (39.0-53.0) % MCV 100.5 H (80.0-100.0) fL Lymphocytes # (Manual) 0.78 L (1.0-4.8) k/uL Metamyelocytes # (Man) 0.52 H (0) k/uL Myelocytes # (Manual) 0.61 H (0) k/uL Sodium 134 L (137-145) mmol/L Carbon Dioxide 21 L (22-30) mmol/L BUN 42 H (9-20) mg/dL Creatinine 1.45 H (0.66-1.25) mg/dL Glucose 109 H (74-99) mg/dL Iron 19 L (65-175) ug/dL % Saturation 7.51 L (15.00-50.00) Total Protein 5.4 L (6.3-8.2) g/dL Albumin 2.6 L (3.5-5.0) g/dL Assessment and Plan Assessment: #1 nonoliguric acute kidney injury secondary to ischemic ATN/prerenal process. #2 chronic kidney disease stage III B secondary to nephrosclerosis with a baseline creatinine of 1.5-2.2 MG per DL. #3 high output ileostomy #4 nosebleeds status post DDA. #5 chronic diastolic CHF. #6 hypovolemic hyponatremia Plan: #1 renal function stable, monitor off IV fluids. #2 avoid nephrotoxic agents and hypotensive episodes #3 supportive care
[2020-07-15] MEDS: DULoxetine HCL 60 MG CAPSULE.DR PO SCH (19:57)
[2020-07-15] MEDS: ARIPiprazole 15 MG TAB PO SCH (20:00)
[2020-07-16] MEDS: PANTOPRAZOLE 40 MG TABLET PO SCH (05:49)
[2020-07-16] MEDS: LEVOTHYROXINE 75 MCG TAB PO SCH (05:49)
[2020-07-16] MEDS: SUCRALFATE 1 GM TAB PO SCH ×4 (05:49→21:21)
[2020-07-16] MEDS: CHOLECALCIFEROL 25 MCG (1000 IU) TABLET PO SCH (08:27)
[2020-07-16] MEDS: DILTIAZEM CD 120 MG CAP.ER.24H PO SCH (08:30)
[2020-07-16] MEDS: ENOXAPARIN 40 MG/0.4 ML SYRINGE SQ SCH (08:30)
[2020-07-16] MEDS: LOPERAMIDE 2 MG CAP PO SCH ×2 (08:30→21:21)
[2020-07-16] MEDS: CHOLESTYRAMINE (WITH SUGAR) 4 GM PACKET PO SCH (08:30)
[2020-07-16] MEDS: CARBIDOPA-LEVODOPA 25-100 MG 1 EACH TAB PO SCH ×2 (08:31→21:21)
[2020-07-16] MEDS: allopurinoL 100 MG TAB PO SCH (08:31)
[2020-07-16] MEDS: DULoxetine HCL 30 MG CAPSULE.DR PO SCH (08:31)
[2020-07-16] MEDS: ATORVASTATIN 20 MG TAB PO SCH (08:31)
[2020-07-16] MEDS: DIVALPROEX 500 MG TABLET.DR PO SCH ×4 (08:31→21:22)
[2020-07-16] MEDS: SODIUM BICARBONATE TAB 650 MG TAB PO SCH ×3 (08:31→21:21)
--- NOTE | 2020-07-16 08:40 | P.PN ---
Subjective Progress Note Date: 07/16/20 CHIEF COMPLAINT: High output ileostomy HISTORY OF PRESENT ILLNESS: The patient is a 69-year-old male with cerebral palsy, high out-put ileostomy, abdominal distention and ileus. Patient had completed a small bowel series and upper GI this weekend. He had done well on clear liquid diet. He was advanced to full liquid diet and immediately had high output ileostomy. He is on multiple medications that propagates diarrhea including drug to drug interaction. I've seen and evaluated the patient alongs [facility] hospitalist team. Otherwise, no vomiting with full liquid diet. ROS: No reports of nausea and vomiting. No fevers or chills. No new chest pain. PHYSICAL EXAM: VITAL SIGNS: Reviewed CONSTITUTIONAL: Well developed and in no acute distress. EYES: Conjuctivae without sclera icterus. Extraocular movements grossly intact. HEAD, EARS, NOSE, THROAT: Moist buccal mucosa. Head is atraumatic, normocephalic. Hears conversational speech. No nasal drainage. NECK: Supple. No thyroidomegaly. RESPIRATORY: Non-labored respirations and equal bilateral excursions. CARDIOVASCULAR: Regular rate. Regular rhythm. ABDOMEN: Soft. No peritonitis. MUSCULOSKELETAL: No gross deformity of the lower extremities noted. No clubbing. No cyanosis. SKIN: Good skin turgor. Well perfused. NEUROLOGIC: Cranial nerves II through XII grossly intact. No focal or lateralizing signs. PSYCH: Awake and alert. CLINICAL LABS: White blood cell count normal 9.6. Hemoglobin down 10.2-8.7. Creatinine elevated 1.39-1.45. ASSESSMENT: 1. High output ileostomy 2. Ileus 3. Anemia 4. Hyponatremia 5. Adverse drug reactions with diarrhea 6. Lactose intolerance PLAN: 1. Full liquid diet often includes lactose and dairy products which coincides with worsening symptoms of diarrhea. We'll advance diet to regular diet. Lactose-free options advised. 2. Medication review includes discontinuing medications that may elicit worsening diarrhea including Protonix 40 mg twice daily, Calcitrol once a week, and Lipitor. We'll continue Carafate which can mitigate hysteria with constipation. 3. Will follow. Objective - Vital Signs Vital signs: Vital Signs Temp 98 F 07/16/20 04:00 Pulse 71 07/16/20 04:00 Resp 18 07/16/20 04:00 BP 126/78 07/16/20 04:00 Pulse Ox 99 07/16/20 04:00 Intake & Output 07/15/20 07/16/20 07/16/20 18:59 06:59 18:59 Intake Total 340 300 Output Total 2900 2325 Balance -2560 -2024 Weight 100.5 kg Intake: Oral 340 300 Output: Urine 350 725 Stool 2550 300 Urine/Stool Mix 1300 Other: Voiding Method Indwelling Catheter Indwelling Catheter - Labs CBC & Chem 7: 07/15/20 07:21 07/15/20 07:21 Labs: Abnormal Lab Results - Last 24 Hours (Table) 07/15/20 Range/Units 07:21 Iron 19 L (65-175) ug/dL % Saturation 7.51 L (15.00-50.00) Assessment and Plan (1) Hyponatremia Current Visit: Yes Status: Acute Code(s): E87.1 - HYPO-OSMOLALITY AND HYPONATREMIA SNOMED Code(s): 16836918 (2) Ileus Current Visit: Yes Status: Acute Code(s): K56.7 - ILEUS, UNSPECIFIED SNOMED Code(s): 871235128 (3) High output ileostomy Current Visit: Yes Status: Acute Code(s): R19.8 - OTH SYMPTOMS AND SIGNS INVOLVING THE DGSTV SYS AND ABDOMEN; Z93.2 - ILEOSTOMY STATUS SNOMED Code(s): 744791287 (4) Cerebral palsy Current Visit: Yes Status: Acute Code(s): G80.9 - CEREBRAL PALSY, UNSPECIFIED SNOMED Code(s): 895085359 (5) Lactose intolerance Current Visit: Yes Status: Acute Code(s): E73.9 - LACTOSE INTOLERANCE, UNSPECIFIED SNOMED Code(s): 561349903 (6) Drug-drug interaction Current Visit: Yes Status: Acute Code(s): Z78.9 - OTHER SPECIFIED HEALTH STATUS SNOMED Code(s): 795066437
--- NOTE | 2020-07-16 11:24 | P.PN ---
Subjective Progress Note Date: 07/16/20 (delayed charting seen at 0930) Principal diagnosis: abdominal pain Patient is a 69-year-old male with a history of hypertension, cognitive disability, bipolar disorder, chronic kidney disease, seizures, and hypothyroidism who presented to the ER with complaints of abdominal pain, nausea, and vomiting. His initial EKG was done and there are some concerns of ST segment elevation in the lateral leads. A code STEMI was subsequently activated. He was taken emergently to the [facility]. Cath revealed clean coronaries it was felt this is likely due to vasospasm. Also noted to have coffee ground emesis however he had had a nosebleed prior to this for approximately 15 minutes while laying back in bed. He was noted to be hypoxic at 87% on room air. His CBC was followed closely and GI was consulted and recommended Protonix twice daily and stool study for C. diff, and a planned for EGD which was completed on 07/08 showed LA grade 1 distal esophagitis and mild gastritis with retained food in the stomach. Echocardiogram showed ejection fraction 60-65% with mild concentric LVH. On 07/09 he was having worsening acute renal failure and nephrology was consulted. This was felt to be secondary to volume depletion and hypotension from his continued high output from his ostomy. He was also noted to have metabolic acidosis with an anion gap and was subsequently started on a bicarb drip. His acidosis and acute kidney injury was beginning to improve. He was transient just in from bicarb to normal saline. He had an additional episode of epistaxis and was administered DDAVP. On 07/11 he was continuing to have high ostomy output and Questran was added. Surgery was consulted secondary to worsening abdominal pain. An abdominal x-ray had been obtained which demonstrated dilated loops of colon. CT abdomen and pelvis was obtained which showed dilated small bowel without a transition point related to partial traction or intestinal ileus as well as urinary bladder wall thickening. Small bowel follow-through did not show any well-defined transition point but showed some ileus. He was advanced to a full liquid diet. He again had increasing output from his ostomy we will try lactose free diet. Of note he was treated with broad-spectrum antibiotics for 2 days secondary to fevers however he did not have any recurrent fever or leukocytosis with no evid ence of ongoing infection and those were subsequently discontinued. Patient seen and examined at bedside. He is feeling better today. No abdominal pain. Per nursing no acute events overnight, has been passing barium into his ileostomy. General: non toxic, no distress, appears at stated age, temporal wasting Derm: warm, dry Head: atraumatic, normocephalic, symmetric Eyes: EOMI, no lid lag, anicteric sclera Mouth: no lip lesion, mucus membranes moist Cardiovascular: S1S2 reg, no murmur, positive posterior tibial pulse bilateral, Lungs: Decreased breath sounds bilateral, no rhonchi, no rales , no accessory muscle use Abdominal: soft, nontender to palpation, no guarding, no appreciable orga nomegaly ostomy with formed output Ext: + gross muscle atrophy, no edema, no contractures Neuro: Decreased muscle strength and tone in all 4 extremities right greater than left, bilateral lower STEMI flexion contractures Psych: Alert, oriented, slow thinking with blunted affect Ileus, high ostomy output - Suspect coffee-ground emesis related to recurrent nose bleeds that happen this hospital stay - C. diff negative - Advanced to regular diet, lactose free - D/W surgery - GI recommendations appreciated: cholesyramine, imodium - surgery recs: No definitive need for intervention at this point in time Acute blood loss anemia - due to nose bleeds - follow CBC - no signs of iron deficiency Acute kidney injury on Chronic kidney disease IIIB, Hyponatremia - nephrology recs appreciated - follow sodium levels likely due to dehydration - IVF completed - avoid nephrotoxic agents - on oral bicarb - Hold home Lasix Elevated troponin without coronary artery disease, likely coronary vasospasm -Inferior wall STEMI ruled out -Cardizem was changed to long acting Hypertension, controlled without medications -Follow blood pressures -Home Norvasc and Lasix on hold Hypokalemia Anion gap metabolic acidosis Epistaxis, resolved after DDAVP Chronic: Bipolar disorder, seizure disorder, gout, hypothyroidism, cognitive disability, chronic diastolic CHF DVT prophylaxis: Lovenox Discussed with: Nursing Anticipated discharge: in AM Anticipated discharge place: [facility] to [facility] A total of 35 minutes was spent on the care of this complex patient more than 50% of the time was spent in counseling and care coordination. Objective - Vital Signs Vital signs: Vital Signs Temp 98.1 F 07/16/20 08:00 Pulse 74 07/16/20 08:00 Resp 18 07/16/20 08:00 BP 103/53 07/16/20 08:00 Pulse Ox 95 04/05/21 08:00 Intake & Output 07/15/20 07/16/20 07/16/20 18:59 06:59 18:59 Intake Total 340 300 Output Total 2900 2325 Balance -2559 Weight 100.5 kg Intake: Oral 340 300 Output: Urine 350 725 Stool 2550 300 Urine/Stool Mix 1300 Other: Voiding Method Indwelling Catheter Indwelling Catheter Indwelling Catheter - Labs CBC & Chem 7: 07/15/20 07:21 07/15/20 07:21 Labs: Abnormal Lab Results - Last 24 Hours (Table) 07/15/20 Range/Units 07:21 Iron 19 L (65-175) ug/dL % Saturation 7.51 L (15.00-50.00)
--- NOTE | 2020-07-16 11:57 | P.PN ---
Subjective Progress Note Date: 07/16/20 Principal diagnosis: Coffee-ground emesis, diarrhea Patient is seen and examined lying in bed. He states he is feeling better today. Denies any abdominal pain. Rule output is decreasing. Upper GI series shows no obstruction. Objective - Vital Signs Vital signs: Vital Signs Temp 98.1 F 07/16/20 08:00 Pulse 74 07/16/20 08:00 Resp 18 07/16/20 08:00 BP 103/53 07/16/20 08:00 Pulse Ox 95 07/16/20 08:00 Intake & Output 07/15/20 07/16/20 07/16/20 18:59 06:59 18:59 Intake Total 340 300 Output Total 2900 2325 Balance -2559 -2024 Weight 100.5 kg Intake: Oral 340 300 Output: Urine 350 725 Stool 2550 300 Urine/Stool Mix 1300 Other: Voiding Method Indwelling Catheter Indwelling Catheter Indwelling Catheter - Exam General appearance: The patient is alert, oriented, appears in no acute distress. HET: Head is normocephalic and atraumatic. Conjunctiva pink. Sclera anicteric. Neck: Supple without lymphadenopathy. Abdomen: Soft, nontender, ostomy with normal brown loose output. No guarding or rigidity. Extremities: Normal skin color and turgor. No pedal edema Skin: No rashes, no jaundice Neurological: No focal deficits. Alert and oriented 3. - Labs CBC & Chem 7: 07/15/20 07:21 07/15/20 07:21 Labs: Abnormal Lab Results - Last 24 Hours (Table) 07/15/20 Range/Units 07:21 Iron 19 L (65-175) ug/dL % Saturation 7.51 L (15.00-50.00) Assessment and Plan (1) Nausea & vomiting Narrative/Plan: 69-year-old male presenting to the hospital for nausea and vomiting as well as abdominal pain and tenderness. Recently seen at [facility] where imaging did show distended stomach otherwise no acute findings. Hemoglobin has been stable however there were concerns of coffee-ground emesis in the setting of epistaxis. Unclear etiology, however given imaging findings of distention and persistent symptoms of nausea and vomiting plan will be to have the patient undergo EGD on 07/08/2020 for evaluation of the upper GI tract and to rule out peptic ulcer disease, gastritis, esophagitis or other etiology. Symptoms areresolved Current Visit: Yes Status: Acute Code(s): R11.2 - NAUSEA WITH VOMITING, UNSPECIFIED SNOMED Code(s): 36055742 (2) Abdominal pain Narrative/Plan: X-ray obtained showing distended stomach with air and prominent air-filled loops of colon. Surgical services on consult, no obstruction noted Current Visit: Yes Status: Acute Code(s): R10.9 - UNSPECIFIED ABDOMINAL PAIN SNOMED Code(s): 49575819 (3) Coffee ground emesis Narrative/Plan: He is status post upper endoscopy which showed only grade D esophagitis, mild gastritis, mild amount of retained food and debris in the stomach, small hiatal hernia, biopsies were taken. No further coffee ground emesis. Current Visit: Yes Status: Acute Code(s): K92.0 - HEMATEMESIS SNOMED Code(s): 14819426 (4) Diarrhea Narrative/Plan: Patient having increased output from his ostomy. Stool studies ordered and negative. Continue Imodium 4 mg 4 times a day as needed. Current Visit: Yes Status: Acute Code(s): R19.7 - DIARRHEA, UNSPECIFIED SNOMED Code(s): 28009204 Plan: 1. Supportive care 2. Diet per surgical services n 3. Repeat abdominal x-ray in a.m. 4. Continue Protonix 40 mg twice daily 5. Continue antiemetic as needed for nausea 6. Continue Imodium to 4mg QID [id number] 7. Patient is status post upper endoscopy 8. Surgery on consult Thank you for this consult, we will sign off at this time Dr. Melissa I agree with the dictator's note, documented as a scribe by Mariann Becker.
--- NOTE | 2020-07-16 14:38 | PN ---
PROGRESS NOTE The patient is seen for followup for acute kidney injury and hyponatremia. Renal function has improved although creatinine slightly higher than yesterday. The patient is currently not on any IV fluids or diuretics. PHYSICAL EXAMINATION: On examination today, blood pressure was 103/53, heart rate 74 per minute. He is afebrile. Examination shows no evidence of edema. Decreased breath sounds in the lung bases. Heart sounds are heard. CLUB WAITER/WAITRESS exam shows decreased movements in the lower extremities, flexion contractures noted. The patient does not communicate much. LABS: Labs show sodium 134, potassium 3.7, chloride 107, BUN 42, creatinine 1.45. Hemoglobin was 8.7 g/dL. ASSESSMENT: 1. Acute kidney injury secondary to ischemic acute tubular necrosis, currently improving, currently off of IV fluids. 2. Chronic kidney disease stage 3B, secondary to nephrosclerosis. Baseline creatinine 1.5-2.2. 3. High output ileostomy. 4. Chronic diastolic congestive heart failure. 5. Hyponatremia. 6. Cerebral palsy. PLAN: Continue to encourage increased oral intake. Continue off of IV fluids. Repeat labs in a.m. Check iron profile if not checked this admission. MMODL / IJN: [id number] /
[2020-07-16] MEDS: SODIUM FERRIC GLUCONAT-SUCROSE 125 MG in SODIUM CHLORIDE 0.9% 100 ML IVPB SCH (15:24)
[2020-07-16] MEDS: ARIPiprazole 15 MG TAB PO SCH (21:21)
[2020-07-16] MEDS: DULoxetine HCL 60 MG CAPSULE.DR PO SCH (21:21)
[2020-07-17] MEDS: LEVOTHYROXINE 75 MCG TAB PO SCH (06:01)
[2020-07-17] MEDS: SUCRALFATE 1 GM TAB PO SCH ×4 (06:01→21:11)
[2020-07-17 08:06] LABS: HCT 30.9 % (39.0-53.0); HGB 10.4 gm/dL (13.0-17.5); MCH 33.5 pg (25.0-35.0); MCHC 33.5 g/dL (31.0-37.0); MCV 99.8 fL (80.0-100.0); Macrocytosis Slight; Platelet Count 220 k/uL (150-450); RDW 15.1 % (11.5-15.5); WBC 10.5 k/uL (3.8-10.6)
[2020-07-17 08:19] LABS: Albumin 3.1 g/dL (3.5-5.0); Calcium 9.6 mg/dL (8.4-10.2); Magnesium 1.8 mg/dL (1.6-2.3); Phosphorus 4.1 mg/dL (2.5-4.5); Total Bilirubin 0.4 mg/dL (0.2-1.3); Total Protein 6.2 g/dL (6.3-8.2)
[2020-07-17] MEDS: ATORVASTATIN 20 MG TAB PO SCH (09:12)
[2020-07-17] MEDS: DIVALPROEX 500 MG TABLET.DR PO SCH ×4 (09:12→21:10)
[2020-07-17] MEDS: DULoxetine HCL 30 MG CAPSULE.DR PO SCH (09:12)
[2020-07-17] MEDS: DILTIAZEM CD 120 MG CAP.ER.24H PO SCH (09:12)
[2020-07-17] MEDS: CARBIDOPA-LEVODOPA 25-100 MG 1 EACH TAB PO SCH ×2 (09:13→21:11)
[2020-07-17] MEDS: LOPERAMIDE 2 MG CAP PO SCH ×2 (09:13→21:10)
[2020-07-17] MEDS: ENOXAPARIN 40 MG/0.4 ML SYRINGE SQ SCH (09:13)
[2020-07-17] MEDS: SODIUM BICARBONATE TAB 650 MG TAB PO SCH ×3 (09:13→21:10)
[2020-07-17] MEDS: CHOLESTYRAMINE (WITH SUGAR) 4 GM PACKET PO SCH (09:14)
[2020-07-17] MEDS: SODIUM FERRIC GLUCONAT-SUCROSE 125 MG in SODIUM CHLORIDE 0.9% 100 ML IVPB SCH (09:14)
--- NOTE | 2020-07-17 13:47 | P.PN ---
Subjective Progress Note Date: 07/17/20 CHIEF COMPLAINT: Abdominal pain HISTORY OF PRESENT ILLNESS: The patient is a 69-year-old male with cerebral palsy, high out-put ileostomy, abdominal distention and ileus. Patient's diet was advanced yesterday to regular lactose-free diet. Patient had adjustment to medications as well but could contribute to his high ileostomy output. Patient did have 1200 mL of liquidy stool output last night. However, this morning the stool is thickened and output has lessened slightly. Patient lying in bed com fortably. Afebrile. WBC 10.6 hemoglobin 10.4 sodium 135 potassium 4.0 creatinine 1.41 PHYSICAL EXAM: VITAL SIGNS: Reviewed GENERAL: Well-developed in no acute distress. HEENT: No sclera icterus. Extraocular movements grossly intact. Moist buccal mucosa. Head is atraumatic, normocephalic. Hears conversational speech. No nasal drainage. NECK: Supple without lymphadenopathy. CHEST: Non-labored respirations and equal bilateral excursions. CARDIOVASCULAR: Palpable 2+ radial pulses. ABDOMEN: Soft. Nondistended. Nontender. Stool slightly more thickened and air present in his colostomy bag MUSCULOSKELETAL: No clubbing or cyanosis. NEUROLOGIC: No focal or lateralizing signs. Cranial nerves II through XII grossly intact. PSYCH: Appropriate affect. Patient is awake and alert. Developmentally delayed. SKIN: Well perfused. Good skin turgor. ASSESSMENT: 1. High output ileostomy 2. Ileus 3. Anemia 4. Hyponatremia 5. Adverse drug reactions with diarrhea 6. Lactose intolerance PLAN: -Continue regular, lactose-free diet -Continue supportive care -No surgical intervention planned Physician Major General note has been reviewed by physician. Signing provider agrees with the documented findings, assessment, and plan of care. Objective - Vital Signs Vital signs: Vital Signs Temp 97.9 F 07/17/20 08:00 Pulse 86 07/17/20 12:00 Resp 18 07/17/20 12:00 BP 108/70 07/17/20 12:00 Pulse Ox 93 L 07/17/20 12:00 Intake & Output 07/16/20 07/17/20 07/17/20 18:59 06:59 18:59 Intake Total 300 180 Output Total 1100 2750 1900 Balance -800 -2750 -1720 Weight 100.5 kg 97.5 kg Intake: Oral 300 180 Output: Urine 600 750 Stool 500 2000 1900 Other: Voiding Method Indwelling Catheter Indwelling Catheter Indwelling Catheter # Voids 1 # Bowel Movements 1 - Labs CBC & Chem 7: 07/17/20 07:44 07/17/20 07:44 Labs: Abnormal Lab Results - Last 24 Hours (Table) 07/17/20 07/17/20 Range/Units 07:44 07:44 RBC 3.10 L (4.30-5.90) m/uL Hgb 10.4 L (13.0-17.5) gm/dL Hct 30.9 L (39.0-53.0) % Sodium 135 L (137-145) mmol/L Carbon Dioxide 20 L (22-30) mmol/L BUN 23 H (9-20) mg/dL Creatinine 1.41 H (0.66-1.25) mg/dL Total Protein 6.2 L (6.3-8.2) g/dL Albumin 3.1 L (3.5-5.0) g/dL
--- NOTE | 2020-07-17 16:10 | PN ---
PROGRESS NOTE The patient is seen for followup for acute kidney injury. He is currently comfortable. Renal function is fairly stable. Patient has a Sharpe catheter with good urine output. Creatinine is staying at about 1.4 mg/dL. PHYSICAL EXAMINATION: On examination today, blood pressure this morning 118/70, heart rate 82 per minute. He is afebrile. EXAMINATION OF THE HEART: S1, S2. EXAMINATION OF THE LUNGS: Decreased breath sounds at bases. Abdomen is soft, nontender. Examination of lower extremities shows edema 1+ bilaterally. SHEARING MACHINE OPERATOR exam shows patient is moving his extremities, not able to carry on a conversation. LABS: Labs show sodium 135, potassium 4.0, chloride 103, CO2 is 20, BUN 23, creatinine 1.4, hemoglobin 10.4 g/dL. ASSESSMENT: 1. Acute kidney injury, ischemic acute tubular necrosis, nonoliguric, slightly better, continue off of IV fluids. 2. Chronic kidney disease stage 3B, secondary to nephrosclerosis. Baseline creatinine 1.5-2.2. 3. Chronic diastolic congestive heart failure. 4. Hyponatremia, improved. 5. Cerebral palsy. 6. Metabolic acidosis, maintained on oral sodium bicarb. 7. Add iron deficiency, currently started on IV iron. PLAN: Continue with oral sodium bicarb. Repeat labs in a.m. Avoid nephrotoxic medications. Avoid hypotension. Blood pressure is on the lower side. I will decrease the Cardizem if blood pressure remains low. MMODL / IJN: [id number] /
--- NOTE | 2020-07-17 18:52 | P.PN ---
Subjective Progress Note Date: 07/17/20 (delayed charting seen at 1030) Principal diagnosis: abdominal pain Patient is a 69-year-old male with a history of hypertension, cognitive disability, bipolar disorder, chronic kidney disease, seizures, and hypothyroidism who presented to the ER with complaints of abdominal pain, nausea, and vomiting. His initial EKG was done and there are some concerns of ST segment elevation in the lateral leads. A code STEMI was subsequently activated. He was taken emergently to the [facility]. Cath revealed clean coronaries it was felt this is likely due to vasospasm. Also noted to have coffee ground emesis however he had had a nosebleed prior to this for approximately 15 minutes while laying back in bed. He was noted to be hypoxic at 87% on room air. His CBC was followed closely and GI was consulted and recommended Protonix twice daily and stool study for C. diff, and a planned for EGD which was completed on 07/08 showed LA grade 1 distal esophagitis and mild gastritis with retained food in the stomach. Echocardiogram showed ejection fraction 60-65% with mild concentric LVH. On 07/09 he was having worsening acute renal failure and nephrology was consulted. This was felt to be secondary to volume depletion and hypotension from his continued high output from his ostomy. He was also noted to have metabolic acidosis with an anion gap and was subsequently started on a bicarb drip. His acidosis and acute kidney injury was beginning to improve. He was transient just in from bicarb to normal saline. He had an additional episode of epistaxis and was administered DDAVP. On 07/11 he was continuing to have high ostomy output and Questran was added. Surgery was consulted secondary to worsening abdominal pain. An abdominal x-ray had been obtained which demonstrated dilated loops of colon. CT abdomen and pelvis was obtained which showed dilated small bowel without a transition point related to partial traction or intestinal ileus as well as urinary bladder wall thickening. Small bowel follow-through did not show any well-defined transition point but showed some ileus. He was advanced to a full liquid diet. He again had increasing output from his ostomy we will try lactose free diet. Of note he was treated with broad-spectrum antibiotics for 2 days secondary to fevers however he did not have any recurrent fever or leukocytosis with no evid ence of ongoing infection and those were subsequently discontinued. Patient seen and examined at bedside. He report that he is good today with a thumbs up. per nursing no events overnight, more solid stool in ostomy. General: non toxic, no distress, appears at stated age, temporal wasting Derm: warm, dry Head: atraumatic, normocephalic, symmetric Eyes: EOMI, no lid lag, anicteric sclera Mouth: no lip lesion, mucus membranes moist Cardiovascular: S1S2 reg, no murmur, positive posterior tibial pulse bilateral, Lungs: Decreased breath sounds bilateral, no rhonchi, no rales , no accessory muscle use Abdominal: soft, nontender to palpation, no guarding, no appreciable organomegaly ostomy with formed output Ext: + gross muscle atrophy, no edema, no contractures Neuro: Decreased muscle strength and tone in all 4 extremities right greater than left, bilateral lower extremity flexion contractures Psych: Alert, oriented, slow thinking with blunted affect Ileus, high ostomy output - Suspect coffee-ground emesis related to recurrent nose bleeds that happen this hospital stay - C. diff negative - Regular diet, lactose free - D/W surgery - GI recommendations appreciated: cholesyramine, imodium - surgery recs: No definitive need for intervention at this point in time Acute blood loss anemia - due to nose bleeds - follow CBC - no signs of iron deficiency Acute kidney injury on Chronic kidney disease IIIB, Hyponatremia - nephrology recs appreciated - follow sodium levels likely due to dehydration - IVF completed - avoid nephrotoxic agents - on oral bicarb - Hold home Lasix Elevated troponin without coronary artery disease, likely coronary vasospasm -Inferior wall STEMI ruled out -Cardizem was changed to long acting Hypertension, controlled without medications -Follow blood pressures -Home Norvasc and Lasix on hold Hypokalemia Anion gap metabolic acidosis Epistaxis, resolved after DDAVP Chronic: Bipolar disorder, seizure disorder, gout, hypothyroidism, cognitive disability, chronic diastolic CHF DVT prophylaxis: Lovenox Discussed with: Nursing Anticipated discharge: in AM Anticipated discharge place: SNF A total of 35 minutes was spent on the care of this complex patient more than 50% of the time was spent in counseling and care coordination. Objective - Vital Signs Vital signs: Vital Signs Temp 98.4 F 07/17/20 17:13 Pulse 74 07/17/20 17:13 Resp 16 07/17/20 17:13 BP 107/71 07/17/20 17:13 Pulse Ox 93 L 07/17/20 17:13 Intake & Output 07/16/20 07/17/20 07/17/20 18:59 06:59 18:59 Intake Total 300 180 Output Total 1100 2750 2500 Balance -800 -2750 -2320 Weight 100.5 kg 97.5 kg Intake: Oral 300 180 Output: Urine 600 750 400 Uretheral (Sharpe) 400 Stool 500 2000 2100 Other: Voiding Method Indwelling Catheter Indwelling Catheter Indwelling Catheter # Voids 1 # Bowel Movements 1 - Labs CBC & Chem 7: 07/17/20 07:44 07/17/20 07:44 Labs: Abnormal Lab Results - Last 24 Hours (Table) 07/17/20 07/17/20 Range/Units 07:44 07:44 RBC 3.10 L (4.30-5.90) m/uL Hgb 10.4 L (13.0-17.5) gm/dL Hct 30.9 L (39.0-53.0) % Sodium 135 L (137-145) mmol/L Carbon Dioxide 20 L (22-30) mmol/L BUN 23 H (9-20) mg/dL Creatinine 1.41 H (0.66-1.25) mg/dL Total Protein 6.2 L (6.3-8.2) g/dL Albumin 3.1 L (3.5-5.0) g/dL
[2020-07-17] MEDS: ARIPiprazole 15 MG TAB PO SCH (21:10)
[2020-07-17] MEDS: DULoxetine HCL 60 MG CAPSULE.DR PO SCH (21:10)
[2020-07-18] MEDS: SUCRALFATE 1 GM TAB PO SCH ×2 (06:11→14:16)
[2020-07-18] MEDS: LEVOTHYROXINE 75 MCG TAB PO SCH (06:11)
[2020-07-18 07:49] VITALS: RESP 18
[2020-07-18] MEDS: SODIUM BICARBONATE TAB 650 MG TAB PO SCH (07:49)
[2020-07-18] MEDS: DULoxetine HCL 30 MG CAPSULE.DR PO SCH (07:49)
[2020-07-18] MEDS: LOPERAMIDE 2 MG CAP PO SCH (07:49)
[2020-07-18] MEDS: ENOXAPARIN 40 MG/0.4 ML SYRINGE SQ SCH (07:49)
[2020-07-18] MEDS: DILTIAZEM CD 120 MG CAP.ER.24H PO SCH (07:49)
[2020-07-18] MEDS: CHOLECALCIFEROL 25 MCG (1000 IU) TABLET PO SCH (07:50)
[2020-07-18] MEDS: CHOLESTYRAMINE (WITH SUGAR) 4 GM PACKET PO SCH (07:50)
[2020-07-18] MEDS: CARBIDOPA-LEVODOPA 25-100 MG 1 EACH TAB PO SCH (07:50)
[2020-07-18] MEDS: ATORVASTATIN 20 MG TAB PO SCH (07:50)
[2020-07-18] MEDS: DIVALPROEX 500 MG TABLET.DR PO SCH ×2 (07:50→14:16)
[2020-07-18] MEDS: SODIUM FERRIC GLUCONAT-SUCROSE 125 MG in SODIUM CHLORIDE 0.9% 100 ML IVPB SCH (10:08)
--- NOTE | 2020-07-18 13:16 | P.PN ---
Subjective Progress Note Date: 07/18/20 CHIEF COMPLAINT: Abdominal pain HISTORY OF PRESENT ILLNESS: The patient is a 69-year-old male with cerebral palsy, high out-put ileostomy, abdominal distention and ileus. Patient's diet was advanced to regular lactose-free diet. Patient had adjustment to medications as well that could contribute to his high ileostomy output. Patient has had decrease in his ileostomy output. His stool is more formed. He is also having air in the ileostomy bag. Patient denies abdominal pain and is lying in bed comfortably. Medicine service has plans for discharge today. Afebrile. No new labs for today PHYSICAL EXAM: VITAL SIGNS: Reviewed GENERAL: Well-developed in no acute distress. HEENT: No sclera icterus. Extraocular movements grossly intact. Moist buccal mucosa. Head is atraumatic, normocephalic. Hears conversational speech. No nasal drainage. NECK: Supple without lymphadenopathy. CHEST: Non-labored respirations and equal bilateral excursions. CARDIOVASCULAR: Palpable 2+ radial pulses. ABDOMEN: Soft. Nondistended. Nontender. Stool slightly more thickened and air present in his ileostomy bag MUSCULOSKELETAL: No clubbing or cyanosis. NEUROLOGIC: No focal or lateralizing signs. Cranial nerves II through XII grossly intact. PSYCH: Appropriate affect. Patient is awake and alert. Developmentally delayed. SKIN: Well perfused. Good skin turgor. ASSESSMENT: 1. High output ileostomy showing improvement 2. Ileus 3. Anemia 4. Hyponatremia 5. Adverse drug reactions with diarrhea 6. Lactose intolerance PLAN: -Continue regular, lactose-free diet -Continue supportive care -No surgical intervention planned Physician Chemistry Lab Instructor note has been reviewed by physician. Signing provider agrees with the documented findings, assessment, and plan of care. Objective - Vital Signs Vital signs: Vital Signs Temp 97.9 F 07/18/20 12:00 Pulse 78 07/18/20 12:14 Resp 18 07/18/20 12:00 BP 126/73 07/18/20 12:00 Pulse Ox 97 07/18/20 12:00 Intake & Output 07/17/20 07/18/20 07/18/20 18:59 06:59 18:59 Intake Total 420 180 Output Total 3100 1200 1150 Balance -2680 -1200 -970 Weight 97.7 kg Intake: Oral 420 180 Output: Urine 800 450 Uretheral (Sharpe) 400 Stool 2300 750 1150 Other: Voiding Method Indwelling Catheter External Catheter External Catheter - Labs CBC & Chem 7: 07/17/20 07:44 07/17/20 07:44
--- NOTE | 2020-07-18 14:23 | P.DS ---
Providers Date of admission: 07/05/20 13:09 Expected date of discharge: 07/18/20 Attending physician: Elaine Osborne DO Consults: 07/05/20 13:09 Consult Physician Stat Consulting Provider: Fortino Zamora Consult Reason/Comments: STEMI Do you want consulting provider notified?: Already Contacted 07/08/20 14:14 Consult Physician Urgent Consulting Provider: Eren Rose Consult Reason/Comments: renal failure Do you want consulting provider notified?: Yes 07/11/20 10:38 Consult Physician Urgent Consulting Provider: Ale Haskins Consult Reason/Comments: Abdominal pain, distnetion with air filled stomach Do you want consulting provider notified?: Yes 07/11/20 11:20 Consult Physician Urgent Consulting Provider: Dion Valle Consult Reason/Comments: recurrent nose bleeds Do you want consulting provider notified?: Yes Primary care physician: Stated None Hospital Course: Discharge Diagnosis: Ileus, high ostomy output Acute blood loss anemia due to recurrent epistasix Acute kidney injury on Chronic kidney disease IIIB, Hyponatremia Elevated troponin without coronary artery disease, likely coronary vasospasm Hypertension, controlled without medications Hypokalemia Anion gap metabolic acidosis Bipolar disorder seizure disorder gout hypothyroidism cognitive disability chronic diastolic CHF esophagitis Hospital Course: Patient is a 69-year-old male with a history of hypertension, cognitive disability, bipolar disorder, chronic kidney disease, seizures, and hypothyroidism who presented to the ER with complaints of abdominal pain, nausea, and vomiting. His initial EKG was done and there are some concerns of ST segment elevation in the lateral leads. A code STEMI was subsequently activated. He was taken emergently to the [facility]. Cath revealed clean coronaries it was felt this is likely due to vasospasm. Also noted to have coffee ground emesis however he had had a nosebleed prior to this for approximately 15 minutes while laying back in bed. He was noted to be hypoxic at 87% on room air. His CBC was followed closely and GI was consulted and recommended Protonix twice daily and stool study for C. diff, and a planned for EGD which was completed on 07/08 showed LA grade 1 distal esophagitis and mild gastritis with retained food in the stomach. Echocardiogram showed ejection fraction 60-65% with mild concentric LVH. On 07/09 he was having worsening acute renal failure and nephrology was consulted. This was felt to be secondary to volume depletion and hypotension from his continued high output from his ostomy. He was also noted to have metabolic acidosis with an anion gap and was subsequently started on a bicarb drip. His acidosis and acute kidney injury was beginning to improve. He was transient just in from bicarb to normal saline. He had an additional episode of epistaxis and was administered DDAVP. On 07/11 he was continuing to have high ostomy output and Questran was added. Surgery was consulted secondary to worsening abdominal pain. An abdominal x-ray had been obtained which demonstrated dilated loops of colon. CT abdomen and pelvis was obtained which showed dilated small bowel without a transition point related to partial traction or intestinal ileus as well as urinary bladder wall thickening. Small bowel follow-through did not show any well-defined transition point but showed some ileus. He was advanced to a full liquid diet. He again had increasing output from his ostomy and he was changed to a lactose free diet, imodium was increased, and ostomy output decreased. He has one additional nose bleed that resolved spontaneously. He was determined stable for discharge to rehab. Patient seen and examined at bedside. Patient without complaints, smiling and eating. Vital signs reviewed and stable. General: non toxic, no distress, appears at stated age, temporal wasting Derm: warm, dry Head: atraumatic, normocephalic, symmetric Eyes: EOMI, no lid lag, anicteric sclera, + blood on upper lip, no active bleeding noted in nares but large clot Mouth: no lip lesion, mucus membranes moist Cardiovascular: S1S2 reg, no murmur, positive posterior tibial pulse bilateral, Lungs: Decreased breath sounds bilateral, no rhonchi, no rales , no accessory muscle use Abdominal: soft, nontender to palpation, no guarding, no appreciable organomegaly ostomy with formed output Ext: + gross muscle atrophy, no edema, no contractures Neuro: Decreased muscle strength and tone in all 4 extremities right greater than left, bilateral lower extremity flexion contractures Psych: Alert, oriented, slow thinking with blunted affect A total of 35 minutes of time were spent preparing this complex discharge summary . Patient Condition at Discharge: Stable Plan - Discharge Summary New Discharge Prescriptions: New Sucralfate [Carafate] 1 gm PO ACHS tab Diltiazem Cd [Cardizem CD] 120 mg PO DAILY cap.er.24h Atorvastatin [Lipitor] 20 mg PO DAILY tab Cholestyramine (with Sugar) [Questran Packet] 4 gm PO DAILY@1000 packet Loperamide [Imodium] 4 mg PO BID cap Ferrous Sulfate [Iron] 325 mg PO DAILY #30 tablet Continue Psyllium Husk 100% [Metamucil Packet] 12 gm PO TID Divalproex [Depakote] 500 mg PO QID DULoxetine HCL [Cymbalta] 60 mg PO HS Levothyroxine Sodium [Synthroid] 75 mcg PO DAILY Cholecalciferol [Vitamin D3 (25 Mcg = 1000 Iu)] 2,000 unit PO Q48H calcitrioL [Rocaltrol] 0.25 mcg PO TU Acetaminophen Tab [Tylenol] 500 - 1,000 mg PO Q6HR PRN PRN Reason: Pain Or Fever > 100.5 Sodium Bicarbonate Tab 650 mg PO DAILY ARIPiprazole [Abilify] 30 mg PO HS guaiFENesin SYRUP 100MG/5ML [Robitussin] 1 dose PO Q4H PRN PRN Reason: Cough DULoxetine HCL [Cymbalta] 30 mg PO DAILY Carbidopa-Levodopa 25-100 mg [Sinemet 25-100 mg] 1 tab PO BID LORazepam [Ativan] 0.5 mg PO TID #12 tab Discontinued LORazepam [Ativan] 1 mg PO DIRECTED PRN PRN Reason: Agitation Loperamide [Imodium] 2 mg PO BID Furosemide [Lasix] 40 mg PO DAILY allopurinoL [Zyloprim] 100 mg PO TID Simvastatin [Zocor] 20 mg PO HS Omeprazole 40 mg PO DAILY Nystatin 100,000 Unit/gm Oint [Mycostatin Oint] 1 applic TOPICAL BID PRN PRN Reason: REDNESS Mupirocin 2% Oint [Bactroban 2% Oint] 1 applic TOPICAL BID PRN PRN Reason: LEFT 4TH TOE Simethicone 180mg 180 mg PO BID Magnesium Oxide 800 mg PO TID Denta Paste 1 applic PO BID No Action amLODIPine [Norvasc] 2.5 mg PO HS Discharge Medication List Cholecalciferol [Vitamin D3 (25 Mcg = 1000 Iu)] 2,000 unit PO Q48H 01/09/16 [History] DULoxetine HCL [Cymbalta] 60 mg PO HS 01/09/16 [History] Divalproex [Depakote] 500 mg PO QID 01/09/16 [History] Levothyroxine Sodium [Synthroid] 75 mcg PO DAILY 01/09/16 [History] Psyllium Husk 100% [Metamucil Packet] 12 gm PO TID 01/09/16 [History] calcitrioL [Rocaltrol] 0.25 mcg PO TU 01/09/16 [History] ARIPiprazole [Abilify] 30 mg PO HS 07/05/20 [History] Acetaminophen Tab [Tylenol] 500 - 1,000 mg PO Q6HR PRN 07/05/20 [History] Carbidopa-Levodopa 25-100 mg [Sinemet 25-100 mg] 1 tab PO BID 07/05/20 [History] DULoxetine HCL [Cymbalta] 30 mg PO DAILY 07/05/20 [History] Sodium Bicarbonate Tab 650 mg PO DAILY 07/05/20 [History] amLODIPine [Norvasc] 2.5 mg PO HS 07/05/20 [History] guaiFENesin SYRUP 100MG/5ML [Robitussin] 1 dose PO Q4H PRN 07/05/20 [History] Atorvastatin [Lipitor] 20 mg PO DAILY tab 07/18/20 [Rx] Cholestyramine (with Sugar) [Questran Packet] 4 gm PO DAILY@1000 packet 07/18/20 [Rx] Diltiazem Cd [Cardizem CD] 120 mg PO DAILY cap.er.24h 07/18/20 [Rx] Ferrous Sulfate [Iron] 325 mg PO DAILY #30 tablet 07/18/20 [Rx] LORazepam [Ativan] 0.5 mg PO TID #12 tab 07/18/20 [Rx] Loperamide [Imodium] 4 mg PO BID cap 07/18/20 [Rx] Sucralfate [Carafate] 1 gm PO ACHS tab 07/18/20 [Rx] Follow up Appointment(s)/Referral(s): Fortino Zamora MD [STAFF PHYSICIAN] - 1 Week None,Stated [Primary Care Provider] - 1-2 days Activity/Diet/Wound Care/Special Instructions: Activity: as tolerated Diet: regular, lactose free Special Instructions: BMP in 3 days
[2020-07-18 15:08] VITALS: BP 119/69; PULSE 84; TEMP 97.6
--- NOTE | 2020-07-18 19:32 | PN ---
PROGRESS NOTE The patient is seen for followup for acute kidney injury. Renal function has been stable. Serum creatinine staying at about 1.4 as of yesterday. No new labs available today. PHYSICAL EXAMINATION: On examination today, blood pressure was 131/84 this morning. Heart rate about 78 per minute. Patient is afebrile. Examination shows decreased breath sounds at the bases. Abdomen is soft, nontender. Examination of lower extremities shows trace edema bilaterally. [facility] exam shows patient does not move his lower extremities much. Not able to carry on a conversation. LABS: Show serum creatinine 1.4 from yesterday, 07/17/2020. ASSESSMENT: 1. Acute kidney injury currently improved. 2. Iron deficiency. Maintained on IV iron. 3. Chronic kidney disease stage 3B, secondary to nephrosclerosis. Baseline creatinine 1.5-2.2. 4. Chronic diastolic congestive heart failure. 5. Hyponatremia. 6. Cerebral palsy. PLAN: Consider decreasing sodium bicarb as outpatient based on repeat labs. For now continue as t.i.d. and monitor volume status closely as an outpatient. Follow up with Nephrology in about 2 weeks. MMODL / IJN: [id number] /
== END 2020-07-18 16:46 | DRG 388 ==
LOC: EEVIPCON 11:32 → EC 11:32 → 2SICU 13:09 → 3SCARD 14:42
PROVIDERS: ADMIT Internal Medicine; ATTEND Internal Medicine
PROC: 4A023N7 Measurement of Cardiac Sampling and Pressure, Left Heart, Percutaneous Approach (ICD-10-PCS; principal; 2020-07-05 16:35)
PROC: B2111ZZ Fluoroscopy of Multiple Coronary Arteries using Low Osmolar Contrast (ICD-10-PCS; principal; 2020-07-05 16:35)
PROC: 0DB98ZX Excision of Duodenum, Via Natural or Artificial Opening Endoscopic, Diagnostic (ICD-10-PCS; 2020-07-08)
PROC: 0DB78ZX Excision of Stomach, Pylorus, Via Natural or Artificial Opening Endoscopic, Diagnostic (ICD-10-PCS; 2020-07-08)
PROC: 0DB28ZX Excision of Middle Esophagus, Via Natural or Artificial Opening Endoscopic, Diagnostic (ICD-10-PCS; 2020-07-08)
DX: K56.7 Ileus, unspecified (principal); N17.0 Acute kidney failure with tubular necrosis; I13.0 Hypertensive heart and chronic kidney disease with heart failure and stage 1 through stage 4 chronic kidney disease, or unspecified chronic kidney disease; I50.32 Chronic diastolic (congestive) heart failure; I20.1 Angina pectoris with documented spasm; K92.0 Hematemesis; E87.2 Acidosis; D62 Acute posthemorrhagic anemia; E87.1 Hypo-osmolality and hyponatremia; E83.9 Disorder of mineral metabolism, unspecified; I95.9 Hypotension, unspecified; E11.22 Type 2 diabetes mellitus with diabetic chronic kidney disease; Z43.2 Encounter for attention to ileostomy; N18.32 Chronic kidney disease, stage 3b; F31.9 Bipolar disorder, unspecified; G80.9 Cerebral palsy, unspecified; G40.909 Epilepsy, unspecified, not intractable, without status epilepticus; F03.90 Unspecified dementia, unspecified severity, without behavioral disturbance, psychotic disturbance, mood disturbance, and anxiety; Z20.822 Contact with and (suspected) exposure to COVID-19; K29.70 Gastritis, unspecified, without bleeding; K21.00 Gastro-esophageal reflux disease with esophagitis, without bleeding; K44.9 Diaphragmatic hernia without obstruction or gangrene; E78.5 Hyperlipidemia, unspecified; E03.9 Hypothyroidism, unspecified; E78.00 Pure hypercholesterolemia, unspecified; E87.6 Hypokalemia; E86.1 Hypovolemia; E86.0 Dehydration; R09.02 Hypoxemia; R04.0 Epistaxis; D72.829 Elevated white blood cell count, unspecified; E61.1 Iron deficiency; F81.9 Developmental disorder of scholastic skills, unspecified; M10.9 Gout, unspecified; M62.50 Muscle wasting and atrophy, not elsewhere classified, unspecified site; E73.9 Lactose intolerance, unspecified; Z79.890 Hormone replacement therapy; Z79.899 Other long term (current) drug therapy; Z85.46 Personal history of malignant neoplasm of prostate; Z88.0 Allergy status to penicillin; Z88.8 Allergy status to other drugs, medicaments and biological substances
CPT/HCPCS: 36415; 43239; 71045; 74019; 74176; 74240; 74248; 80048; 80053; 80061; 80164; 80165; 80202; 80306; 81001; 82150; 82728; 83540; 83550; 83605; 83690; 83735; 83930; 83935; 84100; 84300; 84439; 84443; 84484; 85025; 85027; 85610; 85730; 86850; 86900; 86901; 87045; 87046; 87324; 87635; 88305; 88312; 88342; 93005; 93306; 93458; 96374; 96375; 99285

== ENCOUNTER 2020-08-17 22:36 | Inpatient (IN) | payer MEDICARE, OTHER ==
--- NOTE | 2020-08-17 23:31 | ED ---
Weakness HPI - General Stated complaint: Altered Mental Status Time Seen by Provider: 08/17/20 22:41 Source: RN notes reviewed, old records reviewed Mode of arrival: EMS Limitations: altered mental status - History of Present Illness Initial comments: This is a 69-year-old male very poor strain secondary to underlying dementia coming in for altered mental status and weakness. History obtained from EMS and patient's prior charting MD Complaint: generalized weakness -: unknown Location: generalized Severity: moderate Severity scale (1-10): 7 Consistency: constant Improves with: none Worsens with: none Context: recent illness, history of similar Associated Symptoms: confusion, loss of appetite, nausea/vomiting - Related Data Home Medications Medication Instructions Recorded Confirmed Cholecalciferol [Vitamin D3 (25 1,000 unit PO DAILY 01/09/16 08/17/20 Mcg = 1000 Iu)] DULoxetine HCL [Cymbalta] 60 mg PO HS 01/09/16 08/17/20 Divalproex [Depakote] 500 mg PO QID 01/09/16 08/17/20 Levothyroxine Sodium [Synthroid] 75 mcg PO DAILY 01/09/16 08/17/20 calcitrioL [Rocaltrol] 0.25 mcg PO TU 01/09/16 08/17/20 ARIPiprazole [Abilify] 30 mg PO HS 07/05/20 08/17/20 Carbidopa-Levodopa 25-100 mg 1 tab PO BID 07/05/20 08/17/20 [Sinemet 25-100 mg] DULoxetine HCL [Cymbalta] 30 mg PO HS 07/05/20 08/17/20 Sodium Bicarbonate Tab 650 mg PO DAILY 07/05/20 08/17/20 amLODIPine [Norvasc] 2.5 mg PO HS 07/05/20 08/17/20 Cholestyramine (with Sugar) 4 gm PO DAILY 08/17/20 08/17/20 [Questran Packet] Diltiazem HCl [Diltiazem HCl 24Hr 180 mg PO DAILY 08/17/20 08/17/20 ER] Previous Rx's Medication Instructions Recorded Atorvastatin [Lipitor] 20 mg PO DAILY tab 07/18/20 Sucralfate [Carafate] 1 gm PO ACHS tab 07/18/20 Ertapenem [INVanz] 1 gm IM DAILY #10 vial 08/22/20 Magnesium Oxide [Mag-Ox] 400 mg PO BID #30 tablet 08/22/20 Psyllium Husk 100% [Metamucil 12 gm PO DAILY #0 08/22/20 Packet] Allergies Allergy/AdvReac Type Severity Reaction Status Date / Time lamotrigine Allergy Unknown Verified 08/17/20 22:46 NSAIDS (Non-Steroidal Allergy Unknown Verified 08/17/20 22:46 Anti-Inflamma Penicillins Allergy Rash/Hives Verified 08/17/20 22:46 Review of Systems ROS Statement: Those systems with pertinent positive or pertinent negative responses have been documented in the HPI. ROS Other: All systems not noted in ROS Statement are negative. Past Medical History Past Medical History: Coronary Artery Disease (CAD), Dementia, GERD/Reflux, Hypertension, Neurologic Disorder, Prostate Disorder, Renal Disease, Thyroid Disorder Additional Past Medical History / Comment(s): prostate cancer, epilepsy, chf, cerebral palsy History of Any Multi-Drug Resistant Organisms: None Reported Additional Past Surgical History / Comment(s): ileostomy Past Anesthesia/Blood Transfusion Reactions: No Reported Reaction Smoking Status: Never smoker Past Alcohol Use History: None Reported Past Drug Use History: None Reported General Exam General appearance: alert, in no apparent distress, anxious, lethargic Head exam: Present: atraumatic, normocephalic, normal inspection Eye exam: Present: normal appearance, PERRL, EOMI. Absent: scleral icterus, conjunctival injection, periorbital swelling ENT exam: Present: normal exam, mucous membranes moist Neck exam: Present: normal inspection. Absent: tenderness, meningismus, lymphadenopathy Respiratory exam: Present: normal lung sounds bilaterally. Absent: respiratory distress, wheezes, rales, rhonchi, stridor Cardiovascular Exam: Present: normal rhythm, tachycardia, normal heart sounds. Absent: systolic murmur, diastolic murmur, rubs, gallop, clicks GI/Abdominal exam: Present: soft, normal bowel sounds. Absent: distended, tende rness, guarding, rebound, rigid Extremities exam: Present: normal inspection, full ROM, normal capillary refill. Absent: tenderness, pedal edema, joint swelling, calf tenderness Back exam: Present: normal inspection Neurological exam: Present: alert, oriented X3, CN II-XII intact Psychiatric exam: Present: normal affect, normal mood Skin exam: Present: warm, dry, intact, normal color. Absent: rash Course Vital Signs 08/17/20 08/17/20 08/18/20 22:40 23:40 01:29 Temperature 98.0 F 98.1 F Pulse Rate 110 H 118 H 118 H Respiratory 20 20 16 Rate Blood Pressure 149/76 126/75 132/76 O2 Sat by Pulse 97 96 95 Oximetry - Reevaluation(s) Reevaluation #1: Medical record is reviewed Patient reevaluated in the emergency department, symptoms resolved Patient informed results questions answered - Consultations Consultation #1: Spoke with marlin who agrees to admit this patient EKG Findings - EKG Comments: EKG Findings:: EKG shows sinus tachycardia 115 TN 136 QRS 84 QTc 417 Medical Decision Making - Medical Decision Making 69 male DF for overall weakness hyponatremia renal failure dehydration. Patient [place] for symptomatic therapy patient does have urinary tract infection will need antibiotics - Lab Data Result diagrams: 08/21/20 07:02 08/21/20 07:02 Lab Results 08/17/20 08/17/20 08/17/20 Range/Units 23:20 23:20 23:23 WBC 8.8 (3.8-10.6) k/uL RBC 3.14 L (4.30-5.90) m/uL Hgb 10.1 L (13.0-17.5) gm/dL Hct 28.9 L (39.0-53.0) % MCV 92.3 D (80.0-100.0) fL MCH 32.3 (25.0-35.0) pg MCHC 35.0 (31.0-37.0) g/dL RDW 14.8 (11.5-15.5) % Plt Count 104 L D (150-450) k/uL MPV 9.1 Neutrophils % 86 % Lymphocytes % 3 % Monocytes % 8 % Eosinophils % 0 % Basophils % 0 % Neutrophils # 7.6 (1.3-7.7) k/uL Lymphocytes # 0.3 L (1.0-4.8) k/uL Monocytes # 0.7 (0-1.0) k/uL Eosinophils # 0.0 (0-0.7) k/uL Basophils # 0.0 (0-0.2) k/uL PT 10.6 (9.0-12.0) sec INR 1.0 (<1.2) APTT 23.6 (22.0-30.0) sec Sodium (137-145) mmol/L Potassium (3.5-5.1) mmol/L Chloride (98-107) mmol/L Carbon Dioxide (22-30) mmol/L Anion Gap mmol/L BUN (9-20) mg/dL Creatinine (0.66-1.25) mg/dL Est GFR (CKD-EPI)AfAm (>60 ml/min/1.73 sqM) Est GFR (CKD-EPI)NonAf (>60 ml/min/1.73 sqM) Glucose (74-99) mg/dL Plasma Lactic Acid Papa (0.7-2.0) mmol/L Calcium (8.4-10.2) mg/dL Phosphorus (2.5-4.5) mg/dL Magnesium (1.6-2.3) mg/dL Total Bilirubin (0.2-1.3) mg/dL AST (17-59) U/L ALT (4-49) U/L Alkaline Phosphatase (38-126) U/L Creatine Kinase (55-170) U/L Troponin I (0.000-0.034) ng/mL C-Reactive Protein (<1.0) mg/dL NT-Pro-B Natriuret Pep pg/mL Total Protein (6.3-8.2) g/dL Albumin (3.5-5.0) g/dL Urine Color Yellow Urine Appearance Cloudy (Clear) Urine pH 6.0 (5.0-8.0) Ur Specific [place] 1.017 (1.001-1.035) Urine Protein 3+ H (Negative) Urine Glucose (UA) Negative (Negative) Urine Ketones Negative (Negative) Urine Blood Large H (Negative) Urine Nitrite Negative (Negative) Urine Bilirubin Negative (Negative) Urine Urobilinogen <2.0 (<2.0) mg/dL Ur Leukocyte Esterase Large H (Negative) Urine RBC 12 H (0-5) /hpf Urine WBC >182 H (0-5) /hpf Urine WBC Clumps Many H (None) /hpf Amorphous Sediment Occasional H (None) /hpf Urine Bacteria Many H (None) /hpf Urine Mucus Rare H (None) /hpf 08/17/20 08/17/20 08/17/20 Range/Units 23:23 23:23 23:23 WBC (3.8-10.6) k/uL RBC (4.30-5.90) m/uL Hgb (13.0-17.5) gm/dL Hct (39.0-53.0) % MCV (80.0-100.0) fL MCH (25.0-35.0) pg MCHC (31.0-37.0) g/dL RDW (11.5-15.5) % Plt Count (150-450) k/uL MPV Neutrophils % % Lymphocytes % % Monocytes % % Eosinophils % % Basophils % % Neutrophils # (1.3-7.7) k/uL Lymphocytes # (1.0-4.8) k/uL Monocytes # (0-1.0) k/uL Eosinophils # (0-0.7) k/uL Basophils # (0-0.2) k/uL PT (9.0-12.0) sec INR (<1.2) APTT (22.0-30.0) sec Sodium 130 L (137-145) mmol/L Potassium 4.4 (3.5-5.1) mmol/L Chloride 99 (98-107) mmol/L Carbon Dioxide 18 L (22-30) mmol/L Anion Gap 13 mmol/L BUN 42 H (9-20) mg/dL Creatinine 2.28 H (0.66-1.25) mg/dL Est GFR (CKD-EPI)AfAm 32 (>60 ml/min/1.73 sqM) Est GFR (CKD-EPI)NonAf 28 (>60 ml/min/1.73 sqM) Glucose 114 H (74-99) mg/dL Plasma Lactic Acid Papa 1.3 (0.7-2.0) mmol/L Calcium 9.5 (8.4-10.2) mg/dL Phosphorus 3.7 (2.5-4.5) mg/dL Magnesium 1.3 L (1.6-2.3) mg/dL Total Bilirubin 0.5 (0.2-1.3) mg/dL AST 68 H (17-59) U/L ALT 14 (4-49) U/L Alkaline Phosphatase 78 (38-126) U/L Creatine Kinase 1138 H* (55-170) U/L Troponin I 0.034 (0.000-0.034) ng/mL C-Reactive Protein 36.5 H (<1.0) mg/dL NT-Pro-B Natriuret Pep pg/mL Total Protein 6.1 L (6.3-8.2) g/dL Albumin 3.0 L (3.5-5.0) g/dL Urine Color Urine Appearance (Clear) Urine pH (5.0-8.0) Ur Specific [place] (1.001-1.035) Urine Protein (Negative) Urine Glucose (UA) (Negative) Urine Ketones (Negative) Urine Blood (Negative) Urine Nitrite (Negative) Urine Bilirubin (Negative) Urine Urobilinogen (<2.0) mg/dL Ur Leukocyte Esterase (Negative) Urine RBC (0-5) /hpf Urine WBC (0-5) /hpf Urine WBC Clumps (None) /hpf Amorphous Sediment (None) /hpf Urine Bacteria (None) /hpf Urine Mucus (None) /hpf 08/17/20 Range/Units 23:23 WBC (3.8-10.6) k/uL RBC (4.30-5.90) m/uL Hgb (13.0-17.5) gm/dL Hct (39.0-53.0) % MCV (80.0-100.0) fL MCH (25.0-35.0) pg MCHC (31.0-37.0) g/dL RDW (11.5-15.5) % Plt Count (150-450) k/uL MPV Neutrophils % % Lymphocytes % % Monocytes % % Eosinophils % % Basophils % % Neutrophils # (1.3-7.7) k/uL Lymphocytes # (1.0-4.8) k/uL Monocytes # (0-1.0) k/uL Eosinophils # (0-0.7) k/uL Basophils # (0-0.2) k/uL PT (9.0-12.0) sec INR (<1.2) APTT (22.0-30.0) sec Sodium (137-145) mmol/L Potassium (3.5-5.1) mmol/L Chloride (98-107) mmol/L Carbon Dioxide (22-30) mmol/L Anion Gap mmol/L BUN (9-20) mg/dL Creatinine (0.66-1.25) mg/dL Est GFR (CKD-EPI)AfAm (>60 ml/min/1.73 sqM) Est GFR (CKD-EPI)NonAf (>60 ml/min/1.73 sqM) Glucose (74-99) mg/dL Plasma Lactic Acid Papa (0.7-2.0) mmol/L Calcium (8.4-10.2) mg/dL Phosphorus (2.5-4.5) mg/dL Magnesium (1.6-2.3) mg/dL Total Bilirubin (0.2-1.3) mg/dL AST (17-59) U/L ALT (4-49) U/L Alkaline Phosphatase (38-126) U/L Creatine Kinase (55-170) U/L Troponin I (0.000-0.034) ng/mL C-Reactive Protein (<1.0) mg/dL NT-Pro-B Natriuret Pep 2010 pg/mL Total Protein (6.3-8.2) g/dL Albumin (3.5-5.0) g/dL Urine Color Urine Appearance (Clear) Urine pH (5.0-8.0) Ur Specific [place] (1.001-1.035) Urine Protein (Negative) Urine Glucose (UA) (Negative) Urine Ketones (Negative) Urine Blood (Negative) Urine Nitrite (Negative) Urine Bilirubin (Negative) Urine Urobilinogen (<2.0) mg/dL Ur Leukocyte Esterase (Negative) Urine RBC (0-5) /hpf Urine WBC (0-5) /hpf Urine WBC Clumps (None) /hpf Amorphous Sediment (None) /hpf Urine Bacteria (None) /hpf Urine Mucus (None) /hpf - Radiology Data Radiology results: report reviewed (Chest x-rays negative for acute disease), i mage reviewed Disposition Clinical Impression: Hyponatremia, Weakness, AMS (altered mental status), ARF (acute renal failure), Hypomagnesemia, Rhabdomyolysis Disposition: ADMITTED IP TO THIS [facility] Condition: Stable Is patient prescribed a controlled substance at d/c from ED?: No
--- NOTE | 2020-08-17 23:37 | XR ---
EXAMINATION TYPE: XR chest 1V DATE OF EXAM: 08/17/2020 COMPARISON: 07/11/2020 HISTORY: Short of breath There is some mild infiltrates and atelectasis at the lung bases. There is poor inspiration. There i s no heart failure. Heart size is normal. IMPRESSION: Mild basilar pulmonary infiltrates and atelectasis improved compared to old exam. No hear t failure.
[2020-08-17 23:41] LABS: Partial Thromboplastin Time 23.6 sec (22.0-30.0); Prothrombin Time 10.6 sec (9.0-12.0)
[2020-08-17 23:49] LABS: Calcium 9.5 mg/dL (8.4-10.2); Magnesium 1.3 mg/dL (1.6-2.3); Phosphorus 3.7 mg/dL (2.5-4.5); Potassium 4.4 mmol/L (3.5-5.1); Total Bilirubin 0.5 mg/dL (0.2-1.3); Total Protein 6.1 g/dL (6.3-8.2)
[2020-08-17 23:52] LABS: HCT 28.9 % (39.0-53.0); HGB 10.1 gm/dL (13.0-17.5); MCH 32.3 pg (25.0-35.0); RBC 3.14 m/uL (4.30-5.90); RDW 14.8 % (11.5-15.5); WBC 8.8 k/uL (3.8-10.6)
[2020-08-17 23:53] LABS: Basophils % (A) 0 %; Eosinophils % (A) 0 %; Lymphocytes # (A) 0.3 k/uL (1.0-4.8); Lymphocytes % (A) 3 %; Mean Platelet Volume 9.1; Monocytes # (A) 0.7 k/uL (0-1.0); Monocytes % (A) 8 %; Neutrophils # (A) 7.6 k/uL (1.3-7.7); Neutrophils % (A) 86 %
[2020-08-18 00:08] LABS: Amorphous Sediment,Urine Occasional /hpf; Appearance,Urine Cloudy (Clear); Bacteria,Urine Many /hpf; Bilirubin,Urine Negative (Negative); Blood,Urine Large (Negative); Color,Urine Yellow; Glucose,Urine (UA) Negative (Negative); Ketones,Urine Negative (Negative); Leukocyte Esterase,Urine Large (Negative); Mucus,Urine Rare /hpf; Nitrite,Urine Negative (Negative); Protein,Urine 3+ (Negative); RBC,Urine 12 /hpf (0-5); Specific Gravity,Urine 1.017 (1.001-1.035); Urobilinogen,Urine <2.0 mg/dL (<2.0); WBC,Urine >182 /hpf (0-5)
[2020-08-18] MEDS ORDERED: ONDANSETRON 4 MG/2 ML VIAL IVP PRN (00:09)
[2020-08-18] MEDS ORDERED: ACETAMINOPHEN TAB 325 MG TAB PO PRN (00:09)
[2020-08-18] MEDS ORDERED: MORPHINE SULFATE 4 MG/ML SYRINGE IV PRN (00:09)
[2020-08-18] MEDS ORDERED: NALOXONE 0.4 MG/ML 1 ML VIAL IV PRN (00:09)
[2020-08-18 00:13] LABS: MCV 92.3 fL (80.0-100.0); Platelet Count 104 k/uL (150-450)
[2020-08-18 00:47] LABS: C Reactive Protein 36.5 mg/dL (<1.0)
[2020-08-18] MEDS: MAGNESIUM SULFATE-D5W PMX 1 GM in DEXTROSE/WATER 1 100ML.BAG IVPB SCH ×4 (02:30→06:43)
--- NOTE | 2020-08-18 04:28 | P.HPIM ---
History of Present Illness H&P Date: 08/18/20 The patient is a 69 yo M with a PMH of dementia, Parkinson's, resident of a custodial, seizure disorder, chronic kidney disease, bipolar disorder, and hypothyroidism who was sent in from custodial due to failure to be worsening confusion. The patient was a very poor historian, following only basic commands, and not answering questions appropriately. History thereby obtained from the emergency room physician along with a chart review. The patient was noted to have worsening confusion over the past few days with decreased oral intake and dehydration with subsequent sent in from the custodial. The patient reported bilateral leg pain but denied additional complaints. The review of systems could not reliably be performed since the patient was giving inconsistent answers. He underwent an extensive evaluation in the emergency room with chest x-ray showing mild basilar infiltrates with EKG showing sinus tachycardia at [address]/T-wave changes noted as reviewed by me. Laboratory evaluation was remarkable for hemoglobin of 10.1 (at baseline), sodium 1:30, CO2 18, BUN 42, creatinine 2.28 (baseline 1.41), magnesium 1.3, AST 68, CK 1138, troponin 0.034, UA consistent with UTI. The patient was given IV fluids along with IV antibiotics and is being admitted for further management of UTI, acute kidney injury, and rhabdomyolysis. Review of Systems ROS unobtainable: due to mental status Past Medical History Past Medical History: Coronary Artery Disease (CAD), Dementia, GERD/Reflux, Hypertension, Neurologic Disorder, Prostate Disorder, Renal Disease, Thyroid Disorder Additional Past Medical History / Comment(s): prostate cancer, epilepsy, chf, cerebral palsy History of Any Multi-Drug Resistant Organisms: None Reported Additional Past Surgical History / Comment(s): ileostomy Past Anesthesia/Blood Transfusion Reactions: No Reported Reaction Past Psychological History: No Psychological Hx Reported Smoking Status: Unknown if ever smoked Past Alcohol Use History: None Reported Past Drug Use History: None Reported Medications and Allergies Home Medications Medication Instructions Recorded Confirmed Type Cholecalciferol [Vitamin D3 (25 1,000 unit PO DAILY 01/09/16 08/17/20 History Mcg = 1000 Iu)] DULoxetine HCL [Cymbalta] 60 mg PO HS 01/09/16 08/17/20 History Divalproex [Depakote] 500 mg PO QID 01/09/16 08/17/20 History Levothyroxine Sodium [Synthroid] 75 mcg PO DAILY 01/09/16 08/17/20 History Psyllium Husk 100% [Metamucil 12 gm PO TID-W/MEALS 01/09/16 08/17/20 History Packet] calcitrioL [Rocaltrol] 0.25 mcg PO TU 01/09/16 08/17/20 History ARIPiprazole [Abilify] 30 mg PO HS 07/05/20 08/17/20 History Carbidopa-Levodopa 25-100 mg 1 tab PO BID 07/05/20 08/17/20 History [Sinemet 25-100 mg] DULoxetine HCL [Cymbalta] 30 mg PO HS 07/05/20 08/17/20 History Sodium Bicarbonate Tab 650 mg PO DAILY 07/05/20 08/17/20 History amLODIPine [Norvasc] 2.5 mg PO HS 07/05/20 08/17/20 History Atorvastatin [Lipitor] 20 mg PO DAILY tab 07/18/20 08/17/20 Rx Sucralfate [Carafate] 1 gm PO ACHS tab 07/18/20 08/17/20 Rx Cholestyramine (with Sugar) 4 gm PO DAILY 08/17/20 08/17/20 History [Questran Packet] Diltiazem HCl [Diltiazem HCl 24Hr 180 mg PO DAILY 08/17/20 08/17/20 History ER] Allergies Allergy/AdvReac Type Severity Reaction Status Date / Time lamotrigine Allergy Unknown Verified 08/17/20 22:46 NSAIDS (Non-Steroidal Allergy Unknown Verified 08/17/20 22:46 Anti-Inflamma Penicillins Allergy Rash/Hives Verified 08/17/20 22:46 Physical Exam Vitals: Vital Signs Temp Pulse Pulse Resp BP BP Pulse Ox 08/18/20 01:57 101.4 F H 125 H 14 121/66 98 08/18/20 01:29 98.1 F 118 H 16 132/76 95 08/17/20 23:40 118 H 20 126/75 96 08/17/20 22:40 98.0 F 110 H 20 149/76 97 Intake and Output 08/17/20 08/17/20 08/18/20 14:59 22:59 06:59 Other: Weight 102.648 kg 102.648 kg General: non toxic, no distress, appears at stated age, obese Derm: no unusual rashes/lesions no unusual ecchymoses, warm, dry Head: atraumatic, normocephalic, symmetric Eyes: EOMI, no lid lag, anicteric sclera, pupils equal round reactive to light ENT: Nose and ears atraumatic, no thrush, no pharyngeal erythema Neck: No thyromegaly, no cervical lymphadenopathy, trachea midline, supple Mouth: no lip lesion, mucus membranes dry Cardiovascular: S1S2 reg, no murmur, positive posterior tibial pulse bilateral, 2+ bilateral lower extremity pitting edema, capillary refill less than 2 seconds Lungs: CTA bilateral, no rhonchi, no rales , no accessory muscle use Abdominal: soft, nontender to palpation, no guarding, no appreciable organomega ly, normal bowel sounds Ext: no gross muscle atrophy, muscle strength 4 out of 5 in all 4 extremities grossly, no contractures, Neuro: CN II-XI grossly intact, bilateral resting hand tremor noted Psych: Awake, slow to respond, oriented to self, knows he is in the hospital but unable to name it, not oriented to month or year Results CBC & Chem 7: 08/17/20 23:20 08/17/20 23:23 Labs: Abnormal Lab Results - Last 24 Hours (Table) 08/17/20 08/17/20 08/17/20 Range/Units 23:20 23:20 23:23 RBC 3.14 L (4.30-5.90) m/uL Hgb 10.1 L (13.0-17.5) gm/dL Hct 28.9 L (39.0-53.0) % Plt Count 104 L D (150-450) k/uL Lymphocytes # 0.3 L (1.0-4.8) k/uL Sodium 130 L (137-145) mmol/L Carbon Dioxide 18 L (22-30) mmol/L BUN 42 H (9-20) mg/dL Creatinine 2.28 H (0.66-1.25) mg/dL Glucose 114 H (74-99) mg/dL Magnesium 1.3 L (1.6-2.3) mg/dL AST 68 H (17-59) U/L Creatine Kinase 1138 H* (55-170) U/L C-Reactive Protein 36.5 H (<1.0) mg/dL Total Protein 6.1 L (6.3-8.2) g/dL Albumin 3.0 L (3.5-5.0) g/dL Urine Protein 3+ H (Negative) Urine Blood Large H (Negative) Ur Leukocyte Esterase Large H (Negative) Urine RBC 12 H (0-5) /hpf Urine WBC >182 H (0-5) /hpf Urine WBC Clumps Many H (None) /hpf Amorphous Sediment Occasional H (None) /hpf Urine Bacteria Many H (None) /hpf Urine Mucus Rare H (None) /hpf Thrombosis Risk Factor Assmnt - Choose All That Apply Other Risk Factors: Yes Each Risk Factor Represents 2 Points: Age 61-74 years Thrombosis Risk Factor Assessment Total Risk Factor Score: 2 Thrombosis Risk Factor Assessment Level: Low Risk Assessment and Plan Plan: Altered mentation with underlying dementia, possibly secondary to UTI and dehydration -Continue with ceftriaxone 1 g every 24 hours -Continue with IV fluids LUIS ALBERTO on chronic kidney disease -Continue with IV fluids -Monitor BMP Rhabdomyolysis, likely secondary to dehydration and poor oral intake -IV fluids and monitor CK Hypomagnesemia -Replace and monitor Thrombocytopenia, may be due to ongoing infection -Monitor for now Chronic conditions: Dementia, Parkinson's, hypertension, seizure disorder -Continue with home meds DVT prophylaxis -IPCDs The patient is admitted with an anticipated greater than 2 midnight stay for evaluation of UTI CODE STATUS: Full Code Discussed with: Patient Anticipated discharge date: 2-[address]: [facility]irement A total of 40 minutes was spent on the care of this complex patient more than 50% of the time was spent in counseling and care coordination.
[2020-08-18] MEDS ORDERED: SODIUM CHLORIDE 0.9% 1,000 ML IV SCH (04:30)
[2020-08-18] MEDS: LEVOTHYROXINE 75 MCG TAB PO SCH (05:53)
[2020-08-18] MEDS ORDERED: ATORVASTATIN 20 MG TAB PO SCH (09:00)
[2020-08-18] MEDS: PANTOPRAZOLE 40 MG/10 ML VIAL IV SCH (09:36)
[2020-08-18] MEDS: DILTIAZEM CD 180 MG CAP.ER.24H PO SCH (09:40)
[2020-08-18] MEDS: CARBIDOPA-LEVODOPA 25-100 MG 1 EACH TAB PO SCH ×2 (09:40→22:00)
[2020-08-18] MEDS: SUCRALFATE 1 GM TAB PO SCH ×4 (09:40→22:00)
[2020-08-18] MEDS: DIVALPROEX 500 MG TABLET.DR PO SCH ×4 (09:40→22:00)
[2020-08-18] MEDS: SODIUM BICARBONATE TAB 650 MG TAB PO SCH (09:40)
[2020-08-18 12:09] LABS: HCT 29.6 % (39.6-50.0); HGB 9.4 g/dL (13.0-17.0); MCH 30.4 pg (27.0-32.0); MCHC 31.8 g/dL (32.0-37.0); MCV 95.8 fL (80.0-97.0); Mean Platelet Volume 12.7 fL (9.5-12.2); Platelet Count 109 X 10*3/uL (140-440); RBC 3.09 X 10*6/uL (4.40-5.60); RDW 14.6 % (11.5-14.5); WBC 8.24 X 10*3/uL (4.50-10.00)
--- NOTE | 2020-08-18 12:46 | P.PN ---
Subjective Progress Note Date: 08/18/20 Patient was lethargic but easily arousable this morning. He was answering some of my questions but occasionally go back to sleep. His baseline mental status is unknown to me. No acute events overnight reported by nursing staff. Objective - Vital Signs Vital signs: Vital Signs Temp 99.0 F 08/18/20 07:45 Pulse 114 H 08/18/20 07:45 Resp 20 08/18/20 07:45 BP 123/73 08/18/20 07:45 Pulse Ox 96 08/18/20 07:45 Intake & Output 08/17/20 08/18/20 08/18/20 18:59 06:59 18:59 Output Total 150 550 Balance -150 -550 Weight 102.648 kg Output: Post Void Residual 350 Stool 150 200 Other: Voiding Method Diaper Indwelling Catheter # Voids 1 - Exam General: The patient is awake and alert, in no distress Eye: there is normal conjunctiva bilaterally. Neck: The neck is supple, there is no JVD. Cardiovascular: Normal S1-S2, no S3-S4, no murmurs. Respiratory: Lungs clear to auscultation bilaterally Gastrointestinal: Abdomen is soft, nontender Musculoskeletal: There is no pedal edema. Neurological:. Speech is normal. Skin: Skin is warm and dry - Labs CBC & Chem 7: 08/18/20 07:12 08/17/20 23:23 Labs: Abnormal Lab Results - Last 24 Hours (Table) 08/17/20 08/17/20 08/17/20 Range/Units 23:20 23:20 23:23 RBC 3.14 L (4.30-5.90) m/uL Hgb 10.1 L (13.0-17.5) gm/dL Hct 28.9 L (39.0-53.0) % MCHC (32.0-37.0) g/dL RDW (11.5-14.5) % Plt Count 104 L D (150-450) k/uL MPV (9.5-12.2) fL Lymphocytes # 0.3 L (1.0-4.8) k/uL Sodium 130 L (137-145) mmol/L Carbon Dioxide 18 L (22-30) mmol/L BUN 42 H (9-20) mg/dL Creatinine 2.28 H (0.66-1.25) mg/dL Glucose 114 H (74-99) mg/dL Magnesium 1.3 L (1.6-2.3) mg/dL AST 68 H (17-59) U/L Creatine Kinase 1138 H* (55-170) U/L C-Reactive Protein 36.5 H (<1.0) mg/dL Total Protein 6.1 L (6.3-8.2) g/dL Albumin 3.0 L (3.5-5.0) g/dL Urine Protein 3+ H (Negative) Urine Blood Large H (Negative) Ur Leukocyte Esterase Large H (Negative) Urine RBC 12 H (0-5) /hpf Urine WBC >182 H (0-5) /hpf Urine WBC Clumps Many H (None) /hpf Amorphous Sediment Occasional H (None) /hpf Urine Bacteria Many H (None) /hpf Urine Mucus Rare H (None) /hpf 08/18/20 Range/Units 07:12 RBC 3.09 L (4.30-5.90) m/uL Hgb 9.4 L (13.0-17.5) gm/dL Hct 29.6 L (39.0-53.0) % MCHC 31.8 L (32.0-37.0) g/dL RDW 14.6 H (11.5-14.5) % Plt Count 109 L (150-450) k/uL MPV 12.7 H (9.5-12.2) fL Lymphocytes # (1.0-4.8) k/uL Sodium (137-145) mmol/L Carbon Dioxide (22-30) mmol/L BUN (9-20) mg/dL Creatinine (0.66-1.25) mg/dL Glucose (74-99) mg/dL Magnesium (1.6-2.3) mg/dL AST (17-59) U/L Creatine Kinase (55-170) U/L C-Reactive Protein (<1.0) mg/dL Total Protein (6.3-8.2) g/dL Albumin (3.5-5.0) g/dL Urine Protein (Negative) Urine Blood (Negative) Ur Leukocyte Esterase (Negative) Urine RBC (0-5) /hpf Urine WBC (0-5) /hpf Urine WBC Clumps (None) /hpf Amorphous Sediment (None) /hpf Urine Bacteria (None) /hpf Urine Mucus (None) /hpf Microbiology - Last 24 Hours (Table) 08/17/20 23:20 Urine Culture - Preliminary Urine,Catheterized Assessment and Plan Assessment: This is a 69-year-old male with complex past medical history noted below significant for underlying dementia and Parkinson's disease that presented to the emergency room from a local longterm with altered mental status. Patient was evaluated in the ER and admitted to the hospital for further management of his medical problems noted below. 1. UTI, started on IV ceftriaxone awaiting urine culture 2. Acute kidney injury on stage IIIB chronic kidney disease, probably secondary to dehydration. Continue IV fluid hydration. Repeat lab work in the morning. Baseline creatinine around 1.7 3. Rhabdomyolysis, continue aggressive IV fluid hydration 4. Hypomagnesemia, replaced 5. Acute metabolic encephalopathy, secondary to above. Baseline mental status is not known to me. We will try to clarify with her longterm. 6. Thrombocytopenia, unknown chronicity. We'll continue to monitor 7. Chronic medical problems: Underlying dementia, Parkinson's disease, essential hypertension, seizure disorder, continue home medication 8. DVT prophylaxis with SCDs
[2020-08-18 12:49] LABS: African American GFR (CKD) 33.7 (60.0-200.0); Calcium 8.8 mg/dL (8.7-10.3); Magnesium 1.5 mg/dL (1.5-2.4); Non-African American GFR(CKD) 29.1 (60.0-200.0); Potassium 4.3 mmol/L (3.5-5.5)
[2020-08-18 13:50] VITALS: BMI 32.4
[2020-08-18] MEDS: SODIUM CHLORIDE 0.9% 1,000 ML IV SCH ×2 (14:20→21:59)
[2020-08-18] MEDS: DULoxetine HCL 30 MG CAPSULE.DR PO SCH (22:00)
[2020-08-18] MEDS: ARIPiprazole 15 MG TAB PO SCH (22:00)
[2020-08-18] MEDS: DULoxetine HCL 60 MG CAPSULE.DR PO SCH (22:00)
[2020-08-18] MEDS: amLODIPine 2.5 MG TAB PO SCH (22:00)
--- NOTE | 2020-08-19 01:40 | P.EN ---
notified by RN regarding possible ESBLE in blood culture. microbiology report is not updated yet to reflect above, RN verified with pharmacy. and I saw pharmacy note. no full culture and sensitivity ID is available at this time. could not start meropenem , as patient allergic to penicillin
[2020-08-19] MEDS ORDERED: MEROPENEM 1 GM in SODIUM CHLORIDE 0.9% 100 ML IVPB SCH (03:45)
[2020-08-19] MEDS: MEROPENEM 1 GM in SODIUM CHLORIDE 0.9% 100 ML IVPB SCH ×2 (04:02→14:17)
[2020-08-19] MEDS: SODIUM CHLORIDE 0.9% 1,000 ML IV SCH ×2 (05:53→12:46)
[2020-08-19] MEDS: LEVOTHYROXINE 75 MCG TAB PO SCH (05:54)
[2020-08-19 09:03] LABS: Basophils # (A) 0 X 10*3/uL (0.00-0.10); Basophils % (A) 0 %; Eosinophils # (A) 0 X 10*3/uL (0.04-0.35); Eosinophils % (A) 0 %; Lymphocytes % (A) 3.6 %; MCH 29.7 pg (27.0-32.0); MCHC 30.8 g/dL (32.0-37.0); MCV 96.7 fL (80.0-97.0); Mean Platelet Volume 12.8 fL (9.5-12.2); Monocytes # (A) 0.89 X 10*3/uL (0.20-1.00); Monocytes % (A) 10.5 %; Neutrophils # (A) 7.16 X 10*3/uL (1.80-7.70); Neutrophils % (A) 84.8 %; Platelet Count 105 X 10*3/uL (140-440); RBC 2.69 X 10*6/uL (4.40-5.60); RDW 15.2 % (11.5-14.5); WBC 8.44 X 10*3/uL (4.50-10.00)
[2020-08-19] MEDS: SODIUM BICARBONATE TAB 650 MG TAB PO SCH (09:35)
[2020-08-19] MEDS: SUCRALFATE 1 GM TAB PO SCH ×4 (09:35→22:17)
[2020-08-19] MEDS: CARBIDOPA-LEVODOPA 25-100 MG 1 EACH TAB PO SCH ×3 (09:35→22:17)
[2020-08-19] MEDS: PANTOPRAZOLE 40 MG/10 ML VIAL IV SCH (09:35)
[2020-08-19] MEDS: DILTIAZEM CD 180 MG CAP.ER.24H PO SCH (09:35)
[2020-08-19] MEDS: DIVALPROEX 500 MG TABLET.DR PO SCH ×4 (09:35→22:16)
[2020-08-19 10:27] LABS: African American GFR (CKD) 30.3 (60.0-200.0); Albumin/Globulin Ratio 1.36 (1.60-3.17); Anion Gap 10.8 mmol/L (4.00-12.00); BUN/Creat Ratio 18.75 Ratio (12.00-20.00); Calcium 8.1 mg/dL (8.7-10.3); Carbon Dioxide 18.2 mmol/L (21.6-31.8); Globulin 2.2 g/dL (1.6-3.3); Magnesium 1.6 mg/dL (1.5-2.4); Non-African American GFR(CKD) 26.2 (60.0-200.0); Phosphorus 3.7 mg/dL (2.4-5.1); Potassium 3.8 mmol/L (3.5-5.5); Total Bilirubin 0.2 mg/dL (0.2-1.2); Total Protein 5.2 g/dL (6.2-8.2)
[2020-08-19] MEDS ORDERED: MAGNESIUM SULFATE-D5W PMX 1 GM in DEXTROSE/WATER 1 100ML.BAG IVPB ONE (11:46)
--- NOTE | 2020-08-19 11:48 | P.PN ---
Subjective Progress Note Date: 08/19/20 Patient is doing better today. He is more alert and asking for food. Overnight microbiology lab called the nurse notifying her of ESBL bacteremia by the report only showed E. coli and apparently it's not updated yet. Repeat blood culture sent this morning. No acute events overnight reported by nursing staff. Objective - Vital Signs Vital signs: Vital Signs Temp 98.4 F 08/19/20 07:56 Pulse 86 08/19/20 09:34 Resp 17 08/19/20 07:56 BP 97/62 08/19/20 09:34 Pulse Ox 92 L 08/19/20 07:56 Intake & Output 08/18/20 08/19/20 08/19/20 18:59 06:59 18:59 Intake Total 1890 Output Total 750 1450 150 Balance -750 440 -150 Weight 102.648 kg Intake: Intake, IV Titration 1350 Amount Meropenem 1 gm In Sodium 100 Chloride 0.9% 100 ml @ 33 .3 mls/hr IVPB Q8H [facility] Rx #:[id number] Sodium Chloride 0.9% 1, 1200 000 ml @ 130 mls/hr IV . Q7H42M [facility] Rx#:[id number] cefTRIAXone 1 gm In 50 Sodium Chloride 0.9% 50 ml @ 100 mls/hr IVPB Q24H [facility] Rx#:[id number] Oral 540 Output: Urine 600 Post Void Residual 350 Stool 400 850 150 Other: Voiding Method Indwelling Catheter External Catheter External Catheter # Voids 3 - Exam General: The patient is awake and alert, in no distress Eye: there is normal conjunctiva bilaterally. Neck: The neck is supple, there is no JVD. Cardiovascular: Normal S1-S2, no S3-S4, no murmurs. Respiratory: Lungs clear to auscultation bilaterally Gastrointestinal: Abdomen is soft, nontender. Colostomy bag in place. Musculoskeletal: There is no pedal edema. Skin: Skin is warm and dry - Labs CBC & Chem 7: 08/19/20 06:24 08/19/20 06:24 Labs: Abnormal Lab Results - Last 24 Hours (Table) 08/18/20 08/18/20 08/19/20 Range/Units 07:12 07:12 06:24 RBC 3.09 L 2.69 L (4.40-5.60) X 10*6/uL Hgb 9.4 L 8.0 L (13.0-17.0) g/dL Hct 29.6 L 26.0 L (39.6-50.0) % MCHC 31.8 L 30.8 L (32.0-37.0) g/dL RDW 14.6 H 15.2 H (11.5-14.5) % Plt Count 109 L 105 L (140-440) X 10*3/uL MPV 12.7 H 12.8 H (9.5-12.2) fL Immature Gran # 0.09 H (0.00-0.04) X 10*3/uL Lymphocytes # 0.30 L (0.90-5.00) X 10*3/uL Eosinophils # 0 L (0.04-0.35) X 10*3/uL Sodium 132 L (135-145) mmol/L Carbon Dioxide 19.0 L (21.6-31.8) mmol/L Anion Gap 13.00 H (4.00-12.00) mmol/L BUN 44.0 H (9.0-27.0) mg/dL Creatinine 2.2 H (0.6-1.5) mg/dL Est GFR (CKD-EPI)AfAm 33.7 L (60.0-200.0) Est GFR (CKD-EPI)NonAf 29.1 L (60.0-200.0) Glucose (70-110) mg/dL Calcium (8.7-10.3) mg/dL AST (14-35) U/L Creatine Kinase 1154 H* (35-257) U/L Total Protein (6.2-8.2) g/dL Albumin (3.80-4.90) g/dL Albumin/Globulin Ratio (1.60-3.17) g/dL 08/19/20 Range/Units 06:24 RBC (4.40-5.60) X 10*6/uL Hgb (13.0-17.0) g/dL Hct (39.6-50.0) % MCHC (32.0-37.0) g/dL RDW (11.5-14.5) % Plt Count (140-440) X 10*3/uL MPV (9.5-12.2) fL Immature Gran # (0.00-0.04) X 10*3/uL Lymphocytes # (0.90-5.00) X 10*3/uL Eosinophils # (0.04-0.35) X 10*3/uL Sodium 133 L (135-145) mmol/L Carbon Dioxide 18.2 L (21.6-31.8) mmol/L Anion Gap (4.00-12.00) mmol/L BUN 45.0 H (9.0-27.0) mg/dL Creatinine 2.4 H (0.6-1.5) mg/dL Est GFR (CKD-EPI)AfAm 30.3 L (60.0-200.0) Est GFR (CKD-EPI)NonAf 26.2 L (60.0-200.0) Glucose 133 H (70-110) mg/dL Calcium 8.1 L (8.7-10.3) mg/dL AST 49 H (14-35) U/L Creatine Kinase 294 H (35-257) U/L Total Protein 5.2 L (6.2-8.2) g/dL Albumin 3.00 L (3.80-4.90) g/dL Albumin/Globulin Ratio 1.36 L (1.60-3.17) g/dL Microbiology - Last 24 Hours (Table) 08/18/20 01:02 Blood Culture Gram Stain - Preliminary Blood 08/18/20 01:02 Blood Culture - Final Blood 08/17/20 00:12 Blood Culture Gram Stain - Preliminary Blood Blood Culture - Preliminary Escherichia coli 08/17/20 00:12 Blood Culture - Final Blood 08/17/20 23:20 Urine Culture - Preliminary Urine,Catheterized Assessment and Plan Assessment: This is a 69-year-old male with complex past medical history noted below significant for underlying dementia and Parkinson's disease that presented to [facility] emergency room from a local retirement with altered mental status. Patient was evaluated in the ER and admitted to the hospital for further management of his medical problems noted below. 1. UTI, sepsis without septic shock, E. coli bacteremia possibly ESBL awaiting final report from microbiology lab. started on IV ceftriaxone and then switched to meropenem. Infectious disease consulted. 2. Acute kidney injury on stage IIIB chronic kidney disease, probably secondary to dehydration. Continue IV fluid hydration. Repeat lab work in the morning. Baseline creatinine around 1.7 3. Rhabdomyolysis, CPK improved significantly with aggressive IV fluid hydration 4. Hypomagnesemia, replaced 5. Acute metabolic encephalopathy, secondary to above. Baseline mental status is not known to me. We will try to clarify with her retirement. 6. Thrombocytopenia, unknown chronicity. Stable around 100. We'll continue to monitor 7. Chronic medical problems: Underlying dementia, Parkinson's disease, essential hypertension, seizure disorder, continue home medication 8. DVT prophylaxis with SCDs Bladder scan from yesterday showed no evidence of retention. We will repeat bladder scan today
--- NOTE | 2020-08-19 18:10 | CONS ---
CONSULTATION DATE OF SERVICE: 08/19/2020. REASON FOR CONSULTATION: Bacteremia and UTI. HISTORY OF PRESENT ILLNESS: The patient is a 69-year-old male with a past medical history significant for dementia, history of Parkinson's disease, residential resident, seizure disorder, chronic renal insufficiency. The patient was sent to the ER at [facility] 2 days ago on 08/17/2020 for evaluation of increasing confusion. The patient did have decreased oral intake and dehydration. Patient, on presentation to the hospital, did have a fever of 101.4 degrees Fahrenheit. The patient did not have significant hypoxemia. Patient white count was normal. Did have lymphopenia though. Kidney function was slightly elevated. CKs were elevated. Urine was positive. Lomeli PCR was negative. The patient has been treated with Rocephin. Apparently the urine and blood culture showing ESBL. Antibiotic was switched over to meropenem. Infectious Disease was consulted for further management. At the time of my evaluation today, the patient mentioned slightly more awake, alert, and mentioned not feeling that good but was unable to elaborate his symptoms any further. When asked specifically, denies any chest pain, shortness of breath, cough, no abdominal pain, or any diarrhea. Overall not a very good historian. Most of the information has been extracted from review of the chart. REVIEW OF SYSTEMS: Positive points have been mentioned in HPI. Complete review could not be obtained because underlying mental status. PAST MEDICAL HISTORY: Coronary artery disease, dementia, gastroesophageal reflux disease, hypertension, prostate disorder, hypothyroidism, history of prostate cancer, epilepsy. PAST SURGICAL HISTORY: Ileostomy. SOCIAL HISTORY: No history of smoking, drinking or drug use. FAMILY HISTORY: No pertinent findings noticed. ALLERGIES: To LAMOTRIGINE and ANTIINFLAMMATORY MEDICATION. MEDICATIONS: Currently include the patient is on Tylenol, Norvasc, Abilify, Rocaltrol, Sinemet, Cardizem, Depakote, Cymbalta, levothyroxine, meropenem 1 g q12. He is on Narcan, Zofran and Protonix. PHYSICAL EXAMINATION: Blood pressure is 112/54, pulse of 81, temperature 97.9. He is 93% on room air. GENERAL description: The patient is an elderly male lying in bed in no distress. RESPIRATORY system: Unlabored breathing, clear to auscultation anteriorly. HEART S1, S2. Regular rate and rhythm. ABDOMEN: Soft, no tenderness. No guarding or rigidity. EXTREMITIES: No edema of the feet. SKIN examination: No rash or mass palpable. NEUROLOGICAL: Patient is awake, alert, oriented times one. Mood and affect normal. LABS: Hemoglobin 8, white count 8.44, BUN of 45, creatinine 2.4. Urine has been positive, more than 182 WBCs and WBC clumps. Currently both blood and urine showing ESBL E coli. DIAGNOSTIC IMPRESSION AND PLAN: Patient presented to the hospital with mental status changes, weakness which is likely multifactorial in this patient who did have a component of symptomatic urinary tract infection with bacteremia. PLAN: 1. Patient is started on meropenem 1 g q.12h to continue, dose adjusted with kidney function. 2. Will check ultrasound of the kidney to make sure no evidence of any obstructive uropathy. 3. We will follow on his clinical condition and further adjust medication if needed. Thank you for this consultation. Will follow this patient along with you. MMODL / IJN: [id number] / SD
[2020-08-19] MEDS: DULoxetine HCL 60 MG CAPSULE.DR PO SCH (22:17)
[2020-08-19] MEDS: amLODIPine 2.5 MG TAB PO SCH (22:17)
[2020-08-19] MEDS: DULoxetine HCL 30 MG CAPSULE.DR PO SCH (22:17)
[2020-08-19] MEDS: ARIPiprazole 15 MG TAB PO SCH (22:17)
[2020-08-20] MEDS: MEROPENEM 1 GM in SODIUM CHLORIDE 0.9% 100 ML IVPB SCH ×2 (02:14→12:31)
[2020-08-20] MEDS: LEVOTHYROXINE 75 MCG TAB PO SCH (05:41)
[2020-08-20] MEDS: CARBIDOPA-LEVODOPA 25-100 MG 1 EACH TAB PO SCH ×2 (07:42→20:42)
[2020-08-20] MEDS: SUCRALFATE 1 GM TAB PO SCH ×4 (07:42→20:42)
[2020-08-20] MEDS: SODIUM CHLORIDE 0.9% 1,000 ML IV SCH (07:42)
[2020-08-20] MEDS: DIVALPROEX 500 MG TABLET.DR PO SCH ×4 (07:43→20:42)
[2020-08-20] MEDS: SODIUM BICARBONATE TAB 650 MG TAB PO SCH (07:43)
[2020-08-20] MEDS: DILTIAZEM CD 180 MG CAP.ER.24H PO SCH (07:43)
[2020-08-20] MEDS: PANTOPRAZOLE 40 MG/10 ML VIAL IV SCH (07:43)
[2020-08-20 08:19] LABS: Basophils % (A) 0 %; Eosinophils % (A) 0 %; HCT 26.9 % (39.0-53.0); HGB 8.7 gm/dL (13.0-17.5); Hypochromasia Slight; Lymphocytes # (A) 0.5 k/uL (1.0-4.8); Lymphocytes % (A) 5 %; MCH 30.8 pg (25.0-35.0); MCHC 32.2 g/dL (31.0-37.0); MCV 95.5 fL (80.0-100.0); Mean Platelet Volume 9.5; Monocytes # (A) 0.7 k/uL (0-1.0); Monocytes % (A) 8 %; Neutrophils # (A) 7.3 k/uL (1.3-7.7); Neutrophils % (A) 84 %; Platelet Count 118 k/uL (150-450); RBC 2.82 m/uL (4.30-5.90); RDW 15.3 % (11.5-15.5); WBC 8.7 k/uL (3.8-10.6)
--- NOTE | 2020-08-20 09:12 | US ---
EXAMINATION TYPE: US kidneys/renal and bladder DATE OF EXAM: 08/20/2020 COMPARISON: CT CLINICAL HISTORY: uti and bacteremia. UTI EXAM MEASUREMENTS: Right Kidney: 14.2 x 4.9 x 4.9 cm Left Kidney: 13.6 x 4.1 x 5.5 cm Right Kidney: Appeared wnl Left Kidney: No evidence of hydro, limited visualization due to immobile pt and pt position Bladder: Pt has cath in place and therefore bladder not imaged. Incidental finding enlarged spleen IMPRESSION: 1. No hydronephrosis or nephrolithiasis as visualized. 2. Incidental note made of splenomegaly measuring 16.8 cm.
--- NOTE | 2020-08-20 10:00 | P.PN ---
Subjective Progress Note Date: 08/20/20 Patient is doing well today. He does not have any complaints or concerns. No acute events overnight reported by nursing staff. Objective - Vital Signs Vital signs: Vital Signs Temp 97.9 F 08/20/20 08:00 Pulse 85 08/20/20 08:00 Resp 16 08/20/20 08:00 BP 116/69 08/20/20 08:00 Pulse Ox 91 L 08/20/20 08:00 Intake & Output 08/19/20 08/20/20 08/20/20 18:59 06:59 18:59 Output Total 550 1300 Balance -550 -1300 Output: Urine 400 800 Stool 150 500 Other: Voiding Method External Catheter External Catheter External Catheter - Exam General: The patient is awake and alert, in no distress Eye: there is normal conjunctiva bilaterally. Neck: The neck is supple, there is no JVD. Cardiovascular: Normal S1-S2, no S3-S4, no murmurs. Respiratory: Lungs clear to auscultation bilaterally Gastrointestinal: Abdomen is soft, nontender. Colostomy bag in place. Musculoskeletal: There is no pedal edema. Skin: Skin is warm and dry - Labs CBC & Chem 7: 08/20/20 06:44 08/19/20 06:24 Labs: Abnormal Lab Results - Last 24 Hours (Table) 08/19/20 08/20/20 Range/Units 06:24 06:44 RBC 2.82 L (4.30-5.90) m/uL Hgb 8.7 L (13.0-17.5) gm/dL Hct 26.9 L (39.0-53.0) % Plt Count 118 L (150-450) k/uL Lymphocytes # 0.5 L (1.0-4.8) k/uL Sodium 133 L (135-145) mmol/L Carbon Dioxide 18.2 L (21.6-31.8) mmol/L BUN 45.0 H (9.0-27.0) mg/dL Creatinine 2.4 H (0.6-1.5) mg/dL Est GFR (CKD-EPI)AfAm 30.3 L (60.0-200.0) Est GFR (CKD-EPI)NonAf 26.2 L (60.0-200.0) Glucose 133 H (70-110) mg/dL Calcium 8.1 L (8.7-10.3) mg/dL AST 49 H (14-35) U/L Creatine Kinase 294 H (35-257) U/L Total Protein 5.2 L (6.2-8.2) g/dL Albumin 3.00 L (3.80-4.90) g/dL Albumin/Globulin Ratio 1.36 L (1.60-3.17) g/dL Microbiology - Last 24 Hours (Table) 08/18/20 01:02 Blood Culture Gram Stain - Preliminary Blood Blood Culture - Preliminary Gram Neg Bacilli 08/17/20 00:12 Blood Culture Gram Stain - Final Blood Blood Culture - Final Escherichia coli 08/18/20 16:24 Blood Culture - Preliminary Blood No Growth after 24 hours 08/17/20 23:20 Urine Culture - Preliminary Urine,Catheterized Gram Neg Bacilli Assessment and Plan Assessment: This is a 69-year-old male with complex past medical history noted below significant for underlying dementia and Parkinson's disease that presented to the emergency room from a local residential with altered mental status. Patient was evaluated in the ER and admitted to the hospital for further management of his medical problems noted below. 1. UTI, sepsis without septic shock, ESBL E. coli bacteremia: started on IV me ropenem. Infectious disease following closely. Awaiting repeat blood culture from 08/19 2. Acute kidney injury on stage IIIB chronic kidney disease, probably secondary to dehydration. Improved with IV fluid hydration. Kidney ultrasound showed no hydronephrosis or obstructive uropathy. Repeat lab work in the morning. Baseline creatinine around 1.7 3. Rhabdomyolysis, CPK improved significantly with aggressive IV fluid hydration 4. Hypomagnesemia, replaced 5. Acute metabolic encephalopathy, secondary to above. Now improved significantly. 6. Thrombocytopenia, unknown chronicity. Probably worsened by sepsis. Platelet count improving. We will continue to monitor closely 7. Chronic medical problems: Underlying dementia, Parkinson's disease, essential hypertension, seizure disorder, continue home medication 8. DVT prophylaxis with SCDs Today, I reviewed his medication list and lab work results. Continue current regimen. Patient will probably need 14 days of IV antibiotic from negative blood culture.
[2020-08-20 10:41] LABS: African American GFR (CKD) 33.7 (60.0-200.0); Anion Gap 13.4 mmol/L (4.00-12.00); Calcium 8.2 mg/dL (8.7-10.3); Carbon Dioxide 16.6 mmol/L (21.6-31.8); Non-African American GFR(CKD) 29.1 (60.0-200.0); Potassium 3.5 mmol/L (3.5-5.5)
[2020-08-20] MEDS: amLODIPine 2.5 MG TAB PO SCH (20:41)
[2020-08-20] MEDS: ARIPiprazole 15 MG TAB PO SCH (20:41)
[2020-08-20] MEDS: DULoxetine HCL 60 MG CAPSULE.DR PO SCH (20:42)
[2020-08-20] MEDS: DULoxetine HCL 30 MG CAPSULE.DR PO SCH (20:42)
[2020-08-21] MEDS: MEROPENEM 1 GM in SODIUM CHLORIDE 0.9% 100 ML IVPB SCH ×2 (01:44→12:35)
[2020-08-21] MEDS: LEVOTHYROXINE 75 MCG TAB PO SCH (05:32)
--- NOTE | 2020-08-21 05:54 | PN ---
PROGRESS NOTE DATE OF SERVICE: 08/20/2020 REASON FOR FOLLOWUP: ESBL E coli urinary tract infection bacteremia. INTERVAL HISTORY: The patient was seen on rounds this morning. The patient has been afebrile. The patient is breathing comfortably, slightly more awake and alert. No chest pain or cough. No abdominal pain. No diarrhea. PHYSICAL EXAMINATION: Blood pressure 110/68 with a pulse of 89, temperature 98.9. He is 97% on room air. General description is an elderly male lying in bed in no distress. Respiratory system: Unlabored breathing, clear to auscultation anteriorly. Heart S1, S2. Regular rate and rhythm. ABDOMEN: Soft, no tenderness. LABS: Hemoglobin 8.7, white count 8.7, BUN of 44, creatinine is 2.2. Blood and urine with ESBL E coli. Repeat blood cultures have been negative so far. DIAGNOSTIC IMPRESSION AND PLAN: Patient with ESBL E coli urinary tract infection with secondary bacteremia. Ultrasound has been negative for any obstruction or abnormality. The patient is currently on meropenem, will need Midline and complete therapy with IV Invanz in the outpatient setting. Discussed with the director case. Mentioned he can go back to the [facility] on IV antibiotics. MMODL / IJN: [id number] /
[2020-08-21] MEDS: PANTOPRAZOLE 40 MG TABLET PO SCH (08:20)
[2020-08-21] MEDS: SODIUM BICARBONATE TAB 650 MG TAB PO SCH (08:20)
[2020-08-21] MEDS: DIVALPROEX 500 MG TABLET.DR PO SCH ×4 (08:20→20:54)
[2020-08-21] MEDS: CARBIDOPA-LEVODOPA 25-100 MG 1 EACH TAB PO SCH ×2 (08:20→20:54)
[2020-08-21] MEDS: SUCRALFATE 1 GM TAB PO SCH ×4 (08:20→20:54)
[2020-08-21] MEDS: DILTIAZEM CD 180 MG CAP.ER.24H PO SCH (08:20)
[2020-08-21 11:43] LABS: HCT 26.6 % (39.6-50.0); HGB 8.3 g/dL (13.0-17.0); MCH 30.3 pg (27.0-32.0); MCHC 31.2 g/dL (32.0-37.0); MCV 97.1 fL (80.0-97.0); Mean Platelet Volume 12.5 fL (9.5-12.2); Platelet Count 190 X 10*3/uL (140-440); RBC 2.74 X 10*6/uL (4.40-5.60); RDW 15.8 % (11.5-14.5)
[2020-08-21 12:24] LABS: African American GFR (CKD) 40.2 (60.0-200.0); Anion Gap 11.4 mmol/L (4.00-12.00); BUN/Creat Ratio 23.16 Ratio (12.00-20.00); Calcium 7.9 mg/dL (8.7-10.3); Carbon Dioxide 15.6 mmol/L (21.6-31.8); Magnesium 1.7 mg/dL (1.5-2.4); Non-African American GFR(CKD) 34.7 (60.0-200.0); Potassium 3.6 mmol/L (3.5-5.5)
[2020-08-21 12:52] LABS: Acanthocytes 2+; Basophils # (M) 0 X 10*3/uL (0.00-0.10); Macrocytosis (M) 2+; Myelocytes % 4 % (0-0); Neutrophils % (M) 81 %
--- NOTE | 2020-08-21 13:38 | PN ---
PROGRESS NOTE DATE OF SERVICE: 08/21/2020 REASON FOR FOLLOWUP: ESBL E coli UTI and bacteremia. INTERVAL HISTORY: The patient is currently afebrile. The patient is breathing comfortably and hemodynamically stable. Did not provide any history, though no change reported by the nursing staff. PHYSICAL EXAMINATION: Blood pressure is 111/68 with a pulse of 80, temperature 98.2, he is 95% on room air. GENERAL DESCRIPTION: An elderly male lying in bed in no distress. RESPIRATORY SYSTEM: Unlabored breathing, clear to auscultation anteriorly. HEART: S1, S2. Regular rate and rhythm. ABDOMEN: Soft, no tenderness. LABS: Hemoglobin is 8.1, white count 10. BUN of 44, creatinine 1.9. DIAGNOSTIC IMPRESSION AND PLAN: Patient with ESBL E coli UTI and bacteremia. Blood culture repeat has been negative. We will get a Medline. Plan is to finish therapy with Invanz 1 g daily for another 10 days and close outpatient followup. MMODL / IJN: [id number] /
--- NOTE | 2020-08-21 14:54 | P.PN ---
Subjective Progress Note Date: 08/21/20 Patient is doing well today. He does not have any complaints or concerns. No acute events overnight reported by nursing staff. Objective - Vital Signs Vital signs: Vital Signs Temp 98.2 F 08/21/20 13:43 Pulse 84 08/21/20 13:43 Resp 17 08/21/20 13:43 BP 114/69 08/21/20 13:43 Pulse Ox 96 08/21/20 13:43 Intake & Output 08/20/20 08/21/20 08/21/20 18:59 06:59 18:59 Output Total 600 950 Balance -600 -950 Weight 102.648 kg Output: Urine 600 850 Stool 100 Other: Voiding Method External Catheter External Catheter - Exam General: The patient is awake and alert, in no distress Eye: there is normal conjunctiva bilaterally. Neck: The neck is supple, there is no JVD. Cardiovascular: Normal S1-S2, no S3-S4, no murmurs. Respiratory: Lungs clear to auscultation bilaterally Gastrointestinal: Abdomen is soft, nontender. Colostomy bag in place. Musculoskeletal: There is no pedal edema. Skin: Skin is warm and dry - Labs CBC & Chem 7: 08/21/20 07:02 08/21/20 07:02 Labs: Abnormal Lab Results - Last 24 Hours (Table) 08/21/20 08/21/20 Range/Units 07:02 07:02 RBC 2.74 L (4.40-5.60) X 10*6/uL Hgb 8.3 L (13.0-17.0) g/dL Hct 26.6 L (39.6-50.0) % MCV 97.1 H (80.0-97.0) fL MCHC 31.2 L (32.0-37.0) g/dL RDW 15.8 H (11.5-14.5) % MPV 12.5 H (9.5-12.2) fL Myelocytes % 4 H (0-0) % Lymphocytes # (Manual) 0.40 L (0.90-5.00) X 10*3/uL Chloride 112 H (96-109) mmol/L Carbon Dioxide 15.6 L (21.6-31.8) mmol/L BUN 44.0 H (9.0-27.0) mg/dL Creatinine 1.9 H (0.6-1.5) mg/dL Est GFR (CKD-EPI)AfAm 40.2 L (60.0-200.0) Est GFR (CKD-EPI)NonAf 34.7 L (60.0-200.0) BUN/Creatinine Ratio 23.16 H (12.00-20.00) Ratio Calcium 7.9 L (8.7-10.3) mg/dL Microbiology - Last 24 Hours (Table) 08/19/20 09:36 Blood Culture - Preliminary Blood No Growth after 48 hours 08/18/20 01:02 Blood Culture Gram Stain - Final Blood Blood Culture - Final Escherichia coli 08/18/20 16:24 Blood Culture - Preliminary Blood No Growth after 48 hours 08/17/20 23:20 Urine Culture - Final Urine,Catheterized Escherichia coli Assessment and Plan Assessment: This is a 69-year-old male with complex past medical history noted below significant for underlying dementia and Parkinson's disease that presented to the emergency room from a local assisted with altered mental status. Patient was evaluated in the ER and admitted to the hospital for further management of his medical problems noted below. 1. UTI, sepsis without septic shock, ESBL E. coli bacteremia: started on IV meropenem. Infectious disease following closely. repeat blood culture from 08/19 negative to date. 2. Acute kidney injury on stage IIIB chronic kidney disease, probably secondary to dehydration. Improved with IV fluid hydration. Kidney ultrasound showed no hydronephrosis or obstructive uropathy. Repeat lab work in the morning. Baseline creatinine around 1.7 3. Rhabdomyolysis, CPK improved significantly with aggressive IV fluid hydration 4. Hypomagnesemia, replaced 5. Acute metabolic encephalopathy, secondary to above. Now improved significantly. 6. Thrombocytopenia, unknown chronicity. Probably worsened by sepsis. Platelet count improving. We will continue to monitor closely 7. Chronic medical problems: Underlying dementia, Parkinson's disease, e ssential hypertension, seizure disorder, continue home medication 8. DVT prophylaxis with SCDs Today, I reviewed his medication list and lab work results. Continue current regimen. Patient will probably need 14 days of IV antibiotic from negative blood culture. Anticipate discharge back to [facility] tomorrow.
[2020-08-21] MEDS: ARIPiprazole 15 MG TAB PO SCH (20:53)
[2020-08-21] MEDS: amLODIPine 2.5 MG TAB PO SCH (20:53)
[2020-08-21] MEDS: DULoxetine HCL 60 MG CAPSULE.DR PO SCH (20:54)
[2020-08-21] MEDS: DULoxetine HCL 30 MG CAPSULE.DR PO SCH (20:54)
[2020-08-22] MEDS: MEROPENEM 1 GM in SODIUM CHLORIDE 0.9% 100 ML IVPB SCH (01:36)
[2020-08-22] MEDS: LEVOTHYROXINE 75 MCG TAB PO SCH (05:50)
[2020-08-22 07:10] VITALS: BP 126/61; PULSE 87; RESP 17; TEMP 97.3
[2020-08-22] MEDS: CARBIDOPA-LEVODOPA 25-100 MG 1 EACH TAB PO SCH (08:21)
[2020-08-22] MEDS: SUCRALFATE 1 GM TAB PO SCH (08:21)
[2020-08-22] MEDS: DILTIAZEM CD 180 MG CAP.ER.24H PO SCH (08:21)
[2020-08-22] MEDS: SODIUM BICARBONATE TAB 650 MG TAB PO SCH (08:21)
[2020-08-22] MEDS: DIVALPROEX 500 MG TABLET.DR PO SCH (08:21)
[2020-08-22] MEDS: PANTOPRAZOLE 40 MG TABLET PO SCH (08:21)
--- NOTE | 2020-08-22 08:48 | P.DS ---
Providers Date of admission: 08/18/20 00:10 Expected date of discharge: 08/22/20 Attending physician: Keisha Verma MD Consults: 08/19/20 02:01 Consult Physician Routine Consulting Provider: Travis Kruger Consult Reason/Comments: possible ESBL Do you want consulting provider notified?: Yes, Notify in am Primary care physician: Rick Thibodeaux MD Hospital Course: This is a 69-year-old male with complex past medical history noted below significant for underlying dementia and Parkinson's disease that presented to the emergency room from a local residential with altered mental status. Patient was evaluated in the ER and admitted to the hospital for further management of his medical problems noted below. 1. UTI, sepsis without septic shock, ESBL E. coli bacteremia: started on IV meropenem. repeat blood culture from 08/19 negative to date. Plan is to discharge patient on a 10 days course of Invanz 1 g daily. Midline inserted to be removed after antibiotic course is done 2. Acute kidney injury on stage IIIB chronic kidney disease, probably secondary to dehydration. Improved with IV fluid hydration. Kidney ultrasound showed no hydronephrosis or obstructive uropathy. Repeat lab work in the morning. Baseline creatinine around 1.7 3. Rhabdomyolysis, CPK improved significantly with aggressive IV fluid hydration 4. Hypomagnesemia, replaced 5. Acute metabolic encephalopathy, secondary to above. Now improved significantly. 6. Thrombocytopenia, unknown chronicity. Probably worsened by sepsis. Platelet count improved 7. Chronic medical problems: Underlying dementia, Parkinson's disease, essential hypertension, seizure disorder, continue home medication Patient's overall condition improved significantly throughout his hospital stay. He is back to his baseline. [facility] Patient Condition at Discharge: Stable Plan - Discharge Summary Discharge Rx Participant: No New Discharge Prescriptions: New Ertapenem [INVanz] 1 gm IM DAILY #10 vial Continue Divalproex [Depakote] 500 mg PO QID DULoxetine HCL [Cymbalta] 60 mg PO HS Levothyroxine Sodium [Synthroid] 75 mcg PO DAILY Cholecalciferol [Vitamin D3 (25 Mcg = 1000 Iu)] 1,000 unit PO DAILY calcitrioL [Rocaltrol] 0.25 mcg PO TU Sodium Bicarbonate Tab 650 mg PO DAILY amLODIPine [Norvasc] 2.5 mg PO HS ARIPiprazole [Abilify] 30 mg PO HS Sucralfate [Carafate] 1 gm PO ACHS tab Atorvastatin [Lipitor] 20 mg PO DAILY tab Diltiazem HCl [Diltiazem HCl 24Hr ER] 180 mg PO DAILY DULoxetine HCL [Cymbalta] 30 mg PO HS Carbidopa-Levodopa 25-100 mg [Sinemet 25-100 mg] 1 tab PO BID Cholestyramine (with Sugar) [Questran Packet] 4 gm PO DAILY Changed Psyllium Husk 100% [Metamucil Packet] 12 gm PO DAILY #0 Discharge Medication List Cholecalciferol [Vitamin D3 (25 Mcg = 1000 Iu)] 1,000 unit PO DAILY 01/09/16 [History] DULoxetine HCL [Cymbalta] 60 mg PO HS 01/09/16 [History] Divalproex [Depakote] 500 mg PO QID 01/09/16 [History] Levothyroxine Sodium [Synthroid] 75 mcg PO DAILY 01/09/16 [History] calcitrioL [Rocaltrol] 0.25 mcg PO TU 01/09/16 [History] ARIPiprazole [Abilify] 30 mg PO HS 07/05/20 [History] Carbidopa-Levodopa 25-100 mg [Sinemet 25-100 mg] 1 tab PO BID 07/05/20 [History] DULoxetine HCL [Cymbalta] 30 mg PO HS 07/05/20 [History] Sodium Bicarbonate Tab 650 mg PO DAILY 07/05/20 [History] amLODIPine [Norvasc] 2.5 mg PO HS 07/05/20 [History] Atorvastatin [Lipitor] 20 mg PO DAILY tab 07/18/20 [Rx] Sucralfate [Carafate] 1 gm PO ACHS tab 07/18/20 [Rx] Cholestyramine (with Sugar) [Questran Packet] 4 gm PO DAILY 08/17/20 [History] Diltiazem HCl [Diltiazem HCl 24Hr ER] 180 mg PO DAILY 08/17/20 [History] Ertapenem [INVanz] 1 gm IM DAILY #10 vial 08/22/20 [Rx] Psyllium Husk 100% [Metamucil Packet] 12 gm PO DAILY #0 08/22/20 [Rx] Follow up Appointment(s)/Referral(s): Marleny Massey, [NON-STAFF] - As Needed Rick Thibodeaux MD [Primary Care Provider] - 1-2 days Discharge Disposition: TRANSFER TO SNF/ECF
--- NOTE | 2020-08-22 15:11 | P.PN ---
Progress Note - Text Progress Note Date: 08/22/20 REASON FOR FOLLOWUP: ESBL E coli UTI and bacteremia. INTERVAL HISTORY: The patient is afebrile. The patient is breathing comfortably on room air and hemodynamically stable. Did not provide said yes to any symptoms asked PHYSICAL EXAMINATION: Blood pressure is 126/61 with a pulse of 60, temperature 98.2, he is 95% on room air. GENERAL DESCRIPTION: An elderly male lying in bed in no distress. RESPIRATORY SYSTEM: Unlabored breathing, clear to auscultation anteriorly. HEART: S1, S2. Regular rate and rhythm. ABDOMEN: Soft, no tenderness. LABS: Hemoglobin is 8.1, white count 10. BUN of 44, creatinine 1.9. DIAGNOSTIC IMPRESSION AND PLAN: Patient with ESBL E coli UTI and bacteremia. Blood culture repeat has been negative. h did got a Medline. Plan is to finish therapy with Invanz 1 g daily for another 9 days and close outpatient followup.
== END 2020-08-22 12:31 | DRG 871 ==
LOC: EC 22:36 → 4SSUR 08-18 00:10
PROVIDERS: ADMIT Internal Medicine; ATTEND Internal Medicine
PROC: 05HB33Z Insertion of Infusion Device into Right Basilic Vein, Percutaneous Approach (ICD-10-PCS; principal; 2020-08-21 15:10)
DX: A41.51 Sepsis due to Escherichia coli [E. coli] (principal); G93.41 Metabolic encephalopathy; E87.1 Hypo-osmolality and hyponatremia; I13.0 Hypertensive heart and chronic kidney disease with heart failure and stage 1 through stage 4 chronic kidney disease, or unspecified chronic kidney disease; M62.82 Rhabdomyolysis; N17.9 Acute kidney failure, unspecified; N39.0 Urinary tract infection, site not specified; Z16.12 Extended spectrum beta lactamase (ESBL) resistance; D69.6 Thrombocytopenia, unspecified; D72.810 Lymphocytopenia; Z20.822 Contact with and (suspected) exposure to COVID-19; E03.9 Hypothyroidism, unspecified; E83.42 Hypomagnesemia; E86.0 Dehydration; F02.80 Dementia in other diseases classified elsewhere, unspecified severity, without behavioral disturbance, psychotic disturbance, mood disturbance, and anxiety; F31.9 Bipolar disorder, unspecified; G20 Parkinson's disease; G40.909 Epilepsy, unspecified, not intractable, without status epilepticus; G80.9 Cerebral palsy, unspecified; I25.10 Atherosclerotic heart disease of native coronary artery without angina pectoris; I50.9 Heart failure, unspecified; N18.32 Chronic kidney disease, stage 3b; Z79.890 Hormone replacement therapy; Z79.899 Other long term (current) drug therapy; Z85.46 Personal history of malignant neoplasm of prostate; Z88.6 Allergy status to analgesic agent; Z88.0 Allergy status to penicillin; Z88.8 Allergy status to other drugs, medicaments and biological substances; Z09 Encounter for follow-up examination after completed treatment for conditions other than malignant neoplasm
CPT/HCPCS: 36410; 36415; 71045; 76770; 76937; 80048; 80053; 80175; 81001; 82550; 83605; 83735; 83880; 84100; 84484; 85025; 85027; 85610; 85730; 86140; 87040; 87077; 87086; 87186; 87635; 93005; 94760; 99285